=== PATIENT | male | born 1970 | race Two or more races ===

== ENCOUNTER 2024-08-16 07:58 | Outpatient (AMB) | payer OTHER, SELFPAY ==
--- NOTE | 2024-08-16 08:01 | MHC.OFFVIS ---
Vital Signs 08/16/24 08:04 Height 5 ft 5 in Weight 182 lb BMI 30.3 BP 88/70 L Blood Pressure Location Rt brachial Position Sitting Intake Visit Reasons: ENP-Paresthesias Intake Note: Patient presents for parasthesias Allergies No Known Allergies Allergy (Verified 08/16/24 08:04) Medication List - Last Reconciled 08/16/24 by Ariadna Garcia MD albuterol sulfate 90 mcg/actuation 1 inh inhalation QID amiodarone 200 mg PO DAILY amlodipine (Norvasc) 5 mg PO DAILY aspirin 81 mg PO DAILY atorvastatin 80 mg PO DAILY atorvastatin 80 mg PO DAILY budesonide-formoterol 80-4.5 mcg/actuation (Symbicort) 1 inh inhalation BID famotidine 20 mg PO DAILY gabapentin 100 mg PO BEDTIME isosorbide mononitrate ER 60 mg PO DAILY lamivudine mg PO loperamide (Imodium A-D) 2 mg PO Q6H PRN maraviroc (Selzentry) 150 mg PO BID metoprolol succinate ER 50 mg PO DAILY midodrine 5 mg PO TID nifedipine ER 30 mg PO DAILY ondansetron HCl 4 mg PO Q8H pantoprazole 40 mg PO DAILY temazepam (Restoril) 15 mg PO BEDTIME tenofovir disoproxil fumarate 300 mg PO DAILY tenofovir disoproxil fumarate (Viread) 300 mg PO DAILY trazodone 100 mg PO BEDTIME valsartan 40 mg PO BID [wrist splints As directed] zolpidem (Ambien) 5 mg PO BEDTIME HPI Comments Details: 54y/o male comes for evaluation of paresthesias in his hands and legs- for about 1 year.He describes the sensation as discomfort , tingling , numbness and weakness in his hands . He feels it has improved since then and feels it at night only .He denies neck pain. He also has leg pain that is worse at night - he takes motrin or tylenol. He denies any numbness or tingling. He has occasional back pain . He has some leg weakness, no gait issues. No recent falls. He was diagnosed with Lung Ca 3 -4 years ago and treated with Keytruda. 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 COPD (chronic obstructive pulmonary disease) CAD (coronary artery disease) Chest pain Unstable angina Anemia Endocarditis HIV (human immunodeficiency virus infection) CKD (chronic kidney disease) Lung cancer HTN (hypertension) Surgical History (Updated 08/16/24 @ 08:45 by ABIMBOLA Leary) Postsurgical aortocoronary bypass status History of lung biopsy Hx of cholecystectomy Hx of colonoscopy S/P cardiac cath H/O heart surgery Family History (Updated 08/16/24 @ 08:44 by ABIMBOLA Leary) Mother Cancer Diabetes Father Heart disease Social History (Updated 08/16/24 @ 08:07 by ABIMBOLA Leary) Alcohol intake: never Patient Tobacco Use Status: Never used Tobacco Physical Exam Vital Signs: Last Vital Signs BP 88/70 L 08/16/24 08:04 BMI result Body Mass Index 30.3 Const General: cooperative, healthy appearing, comfortable and no acute distress Nutritional Appearance: average body habitus Orientation/consciousness: patient oriented x3 HEENT Head: Yes normal to inspection Eyes Pupils: Equal, round and reactive pupils present Neuro General: patient oriented x3, gait normal, tone normal, moves all extremities and no focal motor deficits Cranial nerves: Yes Facial sensation intact/muscles of mastication intact, Yes Equal, round and reactive pupils present, Yes Bilaterally intact EOM present, Yes Nystagmus not present, Yes Normal facial strength present, Yes Midline tongue present, Yes Symmetric palate elevation present and Yes Ability to bilaterally elevate shoulders present Cognition (Neuro): normal cognition Gait exam (Neuro): Normal gait present Motor exam (neuro): 5/5 motor strength present throughout and Normal motor muscle tone present throughout Deep tendon reflexes (DTR's): Right triceps reflex intensity grade: 1+, Left triceps reflex intensity grade: 1+, Rt Biceps (C5, C6): 1+, Left biceps reflex intensity grade: 1+, Right patellar reflex intensity grade: 1+ and Left patellar reflex intensity grade: 1+ Assessment & Plan Assessment & Plan (1) Hand paresthesia: Comment: Stu hand with numbness , weakness ? carpal tunnel syndrome Code(s): R20.2 - Paresthesia of skin Category: Medical (2) Leg pain, bilateral: Comment: ? 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
[2024-08-16 08:04] VITALS: BP 88/70; BMI 30.3
== END 2024-08-16 08:39 | disposition home or self-care (01) ==
PROVIDERS: PCP Internal Medicine; Visit Provider Psychiatry & Neurology Neurology
DX: R20.2 Paresthesia of skin (principal); M79.604 Pain in right leg; M79.605 Pain in left leg
CPT/HCPCS: 99204; G2211

== ENCOUNTER → 2024-08-16 07:58 | Outpatient (BNVA) | payer OTHER, SELFPAY | PROVIDERS: PCP Internal Medicine; Visit Provider Psychiatry & Neurology Neurology | DX: N20.0 Calculus of kidney (principal); M79.604 Pain in right leg | CPT/HCPCS: 99202 ==

== ENCOUNTER 2024-09-15 13:20 | Outpatient (REF) | payer OTHER, SELFPAY ==
--- NOTE | 2024-09-15 13:30 | EMG_ITS ---
Chief complaint: Bilateral hand numbness Reason for referral: Evaluate for Carpal Tunnel Syndrome Referred by: Dr. Garcia Procedure done: Left upper extremity NCS Testing on right side deferred until clearance by security investigator. Precautions and/or limitations: Patient has an AV fistula on the right. Patient is afraid of needles. The limb temperature was monitored continuously and remained between 32-36 degrees C during the performance of the NCS. Nerve Conduction Studies Anti Sensory Summary Table ?Stim Site NR Onset (ms) Norm Onset (ms) Peak (ms) Norm Peak (ms) O-P Amp (?V) Norm O-P Amp Site1 Site2 Delta-0 (ms) Dist (cm) Elia (m/s) Norm Elia (m/s) Left Median Anti Sensory (2nd Digit) Wrist ? 3.9 5.4 <3.6 6.1 >10 Wrist 2nd Digit 3.9 14.0 36 Left Radial Anti Sensory (Thumb) Forearm ? 1.7 2.7 <3.1 33.7 Forearm Thumb 1.7 0.0 Left Ulnar Anti Sensory (5th Digit) Wrist ? 2.9 3.8 <3.7 23.2 >15.0 Wrist 5th Digit 2.9 14.0 48 Motor Summary Table ?Stim Site NR Onset (ms) Norm Onset (ms) O-P Amp (mV) Norm O-P Amp iAmp (mV) Amp (1st) (%) Site1 Site2 Delta-0 (ms) Dist (cm) Elia (m/s) Norm Elia (m/s) Left Median Motor (Abd Poll Brev) Wrist ? 5.5 <3.9 7.1 >4.5 9.5 100.0 Elbow Wrist 5.9 22.0 37 >45 Elbow ? 11.4 8.3 10.6 116.9 Left Ulnar Motor (Abd Dig Minimi) Wrist ? 2.9 <3.0 5.7 >5 7.8 100.0 B Elbow Wrist 4.7 21.0 45 >45 B Elbow ? 7.6 5.3 6.6 93.0 A Elbow B Elbow 1.8 10.0 56 >45 A Elbow ? 9.4 5.1 6.3 89.5 FINDINGS: Left median motor nerve showed prolonged distal latency, normal amplitude and normal conduction velocity. Left median sensory nerve showed prolonged peak latency and small amplitude All other nerves tested were within normal. Patient afraid of needles, needle EMG deferred. IMPRESSION: 1. This is an abnormal study. 2. There is electrodiagnostic evidence for left moderate-severe median neuropathy at the wrist, consistent with carpal tunnel syndrome. 3. There is no electrodiagnostic evidence for ulnar neuropathy. Thank you for your kind referral. Nahed Messina MD, KARLEY Board Certified, [place] Board of [employer] Medicine and Rehabilitation (ABPMR) Board Certified, [place] Board of Electrodiagnostic Medicine (ABEM) [facility]
== END 2024-09-15 13:21 | disposition home or self-care (01) ==
LOC: HO.NEURO 13:20
PROVIDERS: Visit Provider Psychiatry & Neurology Neurology
DX: R20.2 Paresthesia of skin (principal); R53.1 Weakness
CPT/HCPCS: 95909

== ENCOUNTER → 2024-09-15 13:30 | Outpatient (BNV) | payer OTHER, SELFPAY | PROVIDERS: Visit Provider Physical Medicine & Rehabilitation | DX: G56.02 Carpal tunnel syndrome, left upper limb (principal) | CPT/HCPCS: 95909 ==

== ENCOUNTER 2024-11-22 09:57 | Outpatient (AMB) | payer OTHER, SELFPAY ==
[2024-11-22 09:59] VITALS: BP 102/66; PULSE 85; O2SAT 97; BMI 31.9
--- NOTE | 2024-11-22 09:59 | MHC.OFFVIS ---
Vital Signs 11/22/24 09:59 Height 5 ft 5 in Weight 191 lb 8 oz BMI 31.9 BP 102/66 Blood Pressure Location Lt brachial Position Sitting Pulse 85 Pulse Source Pulse Oximeter Pulse Oximetry (%) 97 Oxygen Delivery Method Room Air Intake Visit Reasons: Follow up Paresthesias Intake Note: Patient presents for follow up EMG done on 09/15/24 nerve conduction done 09/15/24 Allergies No Known Allergies Allergy (Verified 11/22/24 10:02) HPI Comments Details: 54y/o male comes for f/u of parasthesias in his hands and legs- for about 1 year.EMG left ue was c/w severe carpal tunnel . The right EMG was not done as he has a dialysis fistula A certified mechanical designer helped with todays visit History from iniial visit-He describes the sensation as discomfort , tingling , numbness and weakness in his hands . He feels it has improved since then and feels it at night only .He denies neck pain. He also has leg pain that is worse at night - he takes motrin or tylenol. He denies any numbness or tingling. He has occasional back pain . He has some leg weakness, no gait issues. No recent falls. He was diagnosed with Lung Ca 3 -4 years ago and treated with Keytruda. [facility] Medical History Carpal tunnel syndrome of left wrist Leg pain, bilateral Hand paresthesia Abscess of aortic root AV fistula Dyslipidemia Afib Cardiomyopathy Anxiety Umbilical hernia Nonsquamous nonsmall cell neoplasm of left lung COPD (chronic obstructive pulmonary disease) CAD (coronary artery disease) Chest pain Unstable angina Anemia Endocarditis HIV (human immunodeficiency virus infection) CKD (chronic kidney disease) Lung cancer HTN (hypertension) Surgical History Postsurgical aortocoronary bypass status History of lung biopsy Hx of cholecystectomy Hx of colonoscopy S/P cardiac cath H/O heart surgery Family History Mother Cancer Diabetes Father Heart disease Social History Alcohol intake: never Patient Tobacco Use Status: Never used Tobacco Physical Exam Vital Signs: Last Vital Signs Pulse 85 11/22/24 09:59 BP 102/66 11/22/24 09:59 Pulse Ox 97 11/22/24 09:59 Oxygen Delivery Method Room Air 11/22/24 09:59 BMI result Body Mass Index 31.9 Const General: cooperative, healthy appearing, comfortable and no acute distress Nutritional Appearance: average body habitus Orientation/consciousness: patient oriented x3 HEENT Head: Yes normal to inspection Neuro General: patient oriented x3, gait normal, tone normal, moves all extremities and no focal motor deficits Cognition (Neuro): normal cognition Gait exam (Neuro): Normal gait present Motor exam (neuro): 5/5 motor strength present throughout and Normal motor muscle tone present throughout Assessment & Plan Assessment & Plan (1) Carpal tunnel syndrome of left wrist: Code(s): G56.02 - Carpal tunnel syndrome, left upper limb Category: Medical (2) Leg pain, bilateral: Comment: ? 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
--- OUTSIDE RECORDS SUMMARY | 2024-11-22 11:51 | XMS_ITS | Encounter Summary ---
Author Organization [facility] Address [address] [place] [address] Care Team Providers Care Feather Trimmer Name Role Phone [place] Colasacco, Deidra DO Primary Care Pro vider Unavailable [place] Colasacco, Deidra DO Primary Care Pro vider Unavailable [place] Colasacco, Deidra DO Unavailable Unavailable Hill Felton MD Primary Care Provider [phone] [place] Colasacco, Deidra DO Primary Care Pro vider Unavailable Paulo Meraz MD Unavailable Danish Gore DO Primary Care Provider Sherry vailable Vita Hale PA-C Primary Care Provider U Rasta Burciaga MD Primary Care Provider [phone] Michelle Calderón MD Primary Care Provider Unavailable Rasta Syed MD Primary Care Provider [phone] Jose Marcelo Unavailable Bernardo Dorantes MD Primary Care Provider Kelin Reeves NP Unavailable [phone] Encounter Details Date Type Department Care Team Description 06/11/2015 Release of Information Medical Records [address] [place] [id number] Abstract, Provider Social History Tobacco Use Types Packs/Day Years Used Date Smoking Tobacco: Every Day Cigarettes 1 Alcohol Use Standard Drinks/Week Comments Not Asked 0 (1 standard drink = 0.6 oz pur e alcohol) Sex Assigned at Date Recorded Not on file Job Start Date Occupation Industry Not on file Not on file Not on file documented as of this encounter Plan of Treatment Not on file documented as of this encounter Visit Diagnoses Not on filedocumented in this encounter Care Teams Feather Trimmer Relationship Specialty Start Date End Date Deidra Sneed DO PCP - General Internal Medicine 06/07/15 12/18/15 Deidra Sneed DO PCP - General 12/19/15 02/02/21 Hill Felton MD [address] [place] [address] PCP - General Internal Medicine 02/03/21 02/04/21 Deidra Sneed DO PCP - General Internal Medicine 02/05/21 04/22/21 Danish Gore DO [address] [place], [place] PCP - General Internal Medicine 04/23/21 06/12/21 Vita Hale PA-C [address] [place], [place] PCP - General Internal Medicine 06/13/21 10/20/21 Rasta Syed MD [address] [place] [id number] PCP - General Internal Medicine 10/21/21 07/15/22 Michelle Calderón MD [address] [place] [address] PCP - General Internal Medicine 07/16/22 07/19/22 Rasta Syed MD [address] [place] [address] PCP - General Internal Medicine 07/20/22 08/01/23 Bernardo Dorantes MD [address] [place] [address] PCP - General Internal Medicine 08/02/23 Deidra Sneed, DO Internal Medicine 12/19/15 07/19/22 Paulo Meraz MD [address] [place], [place] Contracting Engineer Cardiovascular Disease 02/17/21 Jose Marcelo PA [address] [place] [address] Specialist Cardiology 09/08/22 Kelin Reeves NP [address] [place] [address] Cardiology 08/18/23 documented as of this encounter
--- OUTSIDE RECORDS SUMMARY | 2024-11-22 11:51 | XMS_ITS | Encounter Summary ---
Author Organization [facility] Address [address] [place] [address] Care Team Providers Care Superintendent [employer] Name Role Phone Paulo Meraz MD Unavailable Rasta Syed MD Primary Care Provider [phone] Jose Marcelo Unavailable Bernardo Dorantes MD Primary Care Provider Kelin Reeves NP Unavailable [phone] Reason for Visit * Reason Onset Date Comments DME Request 02/11/2023 Encounter Details Date Type Department Care Team Description 02/11/2023 Telephone Pulmonology - Cornelia [address] [facility] [address] [place] [address] Wayne Winters MD [address] [place] [address] DME Request Social History Tobacco Use Types Packs/Day Years Used Date Smoking Tobacco: Former Cigarettes 1 8 0 09/27/1987 - 12/2019 Smokeless Tobacco: Never Alcohol Use Standard Drinks/Week Comments No 0 (1 standard drink = 0.6 oz pur e alcohol) Sex Assigned at Date Recorded Not on file Job Start Date Occupation Industry Not on file Not on file Not on file COVID-19 Exposure Response Date Recorded In the last 10 days, have yo u been in contact with someone who was confirmed or suspected to have Coronavirus/COVID-19? No / Unsure 02/01/2023 10:42 AM EDT documented as of this encounter Miscellaneous Notes * Telephone Encounter - Carol Aquino M.A. - 03/22/2023 3:32 PM EDT Faxed required documents for DME to jody. * Telephone Encounter - Jumana Dianenina Puri - 02/11/2023 1:59 PM EDT Oxygen order faxed to jody documented in this encounter Plan of Treatment Not on file documented as of this encounter Visit Diagnoses Not on filedocumented in this encounter Care Teams Superintendent [employer] Relationship Specialty Start Date End Date Rasta Syed MD [address] [place] [id number] PCP - General Internal Medicine 07/20/22 08/01/23 Bernardo Dorantes MD [address] [place] [address] PCP - General Internal Medicine 08/02/23 Paulo Meraz MD Pega Developer Cardiovascular Disease 02/17/21 Jose Marcelo PA [address] [place] [address] Specialist Cardiology 09/08/22 Kelin Reeves NP [address] [place] [address] Cardiology 08/18/23 documented as of this encounter
--- OUTSIDE RECORDS SUMMARY | 2024-11-22 11:51 | XMS_ITS | Encounter Summary ---
Author Organization [facility] Address [address] [place] [address] Care Team Providers Care Bpm Analyst Name Role Phone Paulo Meraz MD Unavailable Rasta Syed MD Primary Care Provider [phone] Jose Marcelo Unavailable Bernardo Dorantes MD Primary Care Provider Kelin Reeves NP Unavailable [phone] Encounter Details Date Type Department Care Team Description 07/14/2023 Rehab Rn Report Medical Records [address] [place] [address] Abstract, Provider Social History Tobacco Use Types [...] on filedocumented in this encounter Care Teams Bpm Analyst Relationship Specialty Start Date End Date Rasta Syed MD [address] [place] [address] [id number] PCP - General Internal Medicine 07/20/22 08/01/23 Bernardo Dorantes MD [address] [place] [address] [id number] PCP - General Internal Medicine 08/02/23 Paulo Meraz MD Farm Hand Cardiovascular Disease 02/17/21 Jose Marcelo PA [address] [place] [address] Specialist Cardiology 09/08/22 Kelin Reeves NP [address] [place] [address] Cardiology 08/18/23 documented as of this encounter
--- OUTSIDE RECORDS SUMMARY | 2024-11-22 11:51 | XMS_ITS | Encounter Summary ---
Author Organization [facility] Address [address] [place] [address] Care Team Providers Care Bee Rancher Name Role Phone Deidra Sneed DO Primary Care Pro vider Unavailable Deidra Sneed DO Unavailable Unavailable Hill Felton MD Primary Care Provider [phone] Deidra Sneed DO Primary Care Pro vider Unavailable Paulo Meraz MD Unavailable Danish Gore DO Primary Care Provider Sherry vailable Vita Hale PA-C Primary Care Provider U Rasta Burciaga MD Primary Care Provider [phone] Michelle Calderón MD Primary Care Provider Unavailable Rasta Syed MD Primary Care Provider [phone] Jose Marcelo Unavailable Bernardo Dorantes MD Primary Care Provider Kelin Reeves NP Unavailable [phone] Encounter Details Date Type Department Care Team Description 11/08/2019 SCAN Medical Records [address] [place] [address] Abstract, Provider Social History Tobacco Use Types Packs/Day Years Used Date Smoking Tobacco: Every Day Cigarettes 1 8 Started: 09/27/1987 Smokeless Tobacco: Former Quit: 07/03/2016 Alcohol Use Standard Drinks/Week Comments No 0 (1 standard drink = 0.6 oz pur e alcohol) Sex Assigned at Date Recorded Not on file Job Start Date Occupation Industry Not on file Not on file Not on file documented as of this encounter Plan of Treatment Not on file documented as of this encounter Procedures Procedure Name Priority Date/Time Associated Diagnosis Comments OUTSIDE EKG Routine 11/08/2019 documented in this encounter Results * OUTSIDE EKG (11/08/2019) Provider Default CARDIOLOGY documented in this encounter Visit Diagnoses Not on filedocumented in this encounter Care Teams Bee Rancher Relationship Specialty Start Date End Date Deidra Sneed DO PCP - General 12/19/15 02/02/21 Hill Felton MD [address] [place], [place] PCP - General Internal Medicine 02/03/21 02/04/21 Deidra Sneed DO PCP - General Internal Medicine 02/05/21 04/22/21 Danish Gore DO [address] [place], [place] PCP - General Internal Medicine 04/23/21 06/12/21 Vita Hale PA-C [address] [place], [place] PCP - General Internal Medicine 06/13/21 10/20/21 Rasta Syed MD [address] [place] [address] PCP - General Internal Medicine 10/21/21 07/15/22 Michelle Calderón MD [address] [place] [address] PCP - General Internal Medicine 07/16/22 07/19/22 Rasta Syed MD [address] [place] [address] PCP - General Internal Medicine 07/20/22 08/01/23 Bernardo Dorantes MD [address] [place] [address] PCP - General Internal Medicine 08/02/23 Deidra Sneed DO Internal Medicine 12/19/15 07/19/22 Paulo Meraz MD [address] [place], [place] Credit And Collection Manager Cardiovascular Disease 02/17/21 Jose Marcelo PA [address] [place], [place] [phone] Specialist Cardiology 09/08/22 Kelin Reeves NP [address] [place] [address] Cardiology 08/18/23 documented as of this encounter
--- OUTSIDE RECORDS SUMMARY | 2024-11-22 11:51 | XMS_ITS | Encounter Summary ---
Author Organization [facility] Address [address] [address] Phone Care Team Providers Care Gas Analyst Name Role Phone Bernardo Dorantes Primary Care Provider [phone] Encounter Details Date Type Department Care Team ([facility] st Contact Info) Description 11/09/2024 Treatment [facility] [address] [address] Anne No MD [address] [address] Social History Tobacco Use Types Packs/Day Years Used Date Smoking Tobacco: Former Cigarettes Q uit: 2019 Smokeless Tobacco: Never Alcohol Use Standard Drinks/Week Comments Never 0 (1 standard drink = 0.6 oz pure alcohol) Alcoholic Drinks/day: Occasional social drink Sex and Gender Information Value Date Recorded Sex Assigned at Not on file Legal Sex Male 4:41 PM EST Gender Identity Not on file Sexual Orientation Not on file documented as of this encounter Miscellaneous Notes * Dialysis Note - Anne No MD - 11/09/2024 12:00 AM EST Patient: Hoang Larson : 1970 Note Type: Dialysis Rounds-Basic Telehealth Service Date: 11/09/2024 Telehealth encounter using audiovisual technology, performed according to state requirements. Appropriate patient consent obtained. This patient was personally seen for a basic visit as part of routine monthly dialysis care for end stage renal disease. Attending Route Salesman And Driver: ANNE NO MD Dialysis Location: [facility] Schedule: Shift: 1 ADEQUACY ASSESSMENT Kt/V, Natural Log 1.33 (11/02/24) 1.24 (10/05/24) 1.45 (08/31/24) UREA REDUCTION RATIO (%) 69 (11/02/24) 66 (10/05/24) 71 (08/31/24) BUN 80 (11/02/24) 77 (10/05/24) 55 (08/31/24) BUN Post Dialysis 25 (11/02/24) 26 (10/05/24) 16 (08/31/24) Creatinine 9.20 (11/02/24) 10.72 (10/05/24) 8.72 (08/31/24) Bicarbonate (CO2) 23 (11/02/24) 20 (10/05/24) 22 (08/31/24) Sodium 140 (11/02/24) 140 (10/05/24) 137 (08/31/24) ANEMIA ASSESSMENT Hgb 9.3 (11/02/24) 9.6 (10/26/24) 9.3 (10/19/24) Iron Saturation (TSat) 22 (11/02/24) 21 (10/05/24) 28 (08/31/24) Ferritin 636 (10/05/24) Iron 54 (11/02/24) 44 (10/05/24) 58 (08/31/24) TIBC 249 (11/02/24) 213 (10/05/24) 207 (08/31/24) MCV 98.3 (11/02/24) 103.2 (08/31/24) 102.2 (08/03/24) Platelets 214 (11/02/24) 215 (08/31/24) 230 (08/03/24) BMM ASSESSMENT Calcium, Adjusted Total 8.9 11/02/24 9.5 10/05/24 8.4 08/31/24 Calcium 8.9 11/02/24 9.5 10/05/24 8.4 08/31/24 Phosphorus, Serum 7.1 11/02/24 6.1 10/26/24 8.4 10/05/24 Ca*PO4 63.2 11/02/24 79.8 10/05/24 46.2 08/31/24 PTH, Intact 792 11/02/24 886 10/05/24 672 08/31/24 Vitamin D, 25-Hydroxy 27 10/05/24 Magnesium 2.2 11/02/24 2.0 10/05/24 2.0 08/31/24 Alkaline Phosphatase 173 11/02/24 150 10/05/24 231 08/31/24 Aluminum 4 10/05/24 NUTRITION ASSESSMENT Albumin 4.1 11/02/24 4.1 10/05/24 4.1 08/31/24 Potassium 5.6 11/02/24 5.8 10/05/24 5.0 08/31/24 ADDITIONAL LABS White Blood Cells 6.1 (11/02/24) 5.8 (08/31/24) 6.6 (08/03/24) Cholesterol 100 (10/05/24) HDL 22 (10/05/24) LDL-Calc 38 (10/05/24) Triglycerides 202 (10/05/24) Hep B Surface Antibody 9 (10/05/24) 11 (09/14/24) Uric Acid 6.9 (10/05/24) ADDITIONAL COMMENT COMMENTS: 10/31/24 no new issues 11/09/24 c/o psoriasis 05/30/24 stable 06/06/24 no new issues 06/20/24 doing well w no complaints 07/04/24 stable 07/18/24 no new issues 08/01/24 doing ok 08/08/24 stable 08/21/24 doing ok 08/17/24 same issues 09/21/24 stable 09/25/24 doing ok 10/05/24 stable 10/10/24 stable 10/17/24 no new issues Signed by: ANNE NO MD on 11/09/2024 at 08:36:39 AM documented in this encounter Plan of Treatment Upcoming Encounters Date Type Department Care Team (Late st Contact Info) Description 12/04/2024 3:30 PM EDT Scheduled Only [facility] - [facility] [address] [place] [address] documented as of this encounter Visit Diagnoses Not on filedocumented in this encounter Care Teams Gas Analyst Relationship Specialty Start Date End Date Bernardo Dorantes [address] [place] [address] PCP - General 11/06/24 documented as of this encounter
--- OUTSIDE RECORDS SUMMARY | 2024-11-22 11:51 | XMS_ITS | Encounter Summary ---
Author Organization [facility] Address [address] [place] [address] Care Team Providers Care Executive Chef Name Role Phone Paulo Meraz MD Unavailable Rasta Syed MD Primary Care Provider [phone] Jose Marcelo Unavailable Bernardo Dorantes MD Primary Care Provider Kelin Reeves NP Unavailable [phone] Reason for Visit * Reason Onset Date Comments VNA Call 06/15/2023 Encounter Details Date Type Department Care Team Description 06/15/2023 Telephone Adult Medicine [address] [id number] Yakov Watts, PROMOTIONS TEAM LEADER [address] [place], [place] [phone] VNA Call Social History Tobacco Use Types Packs/Day Years [...] suspected to have Coronavirus/COVID-19? No / Unsure 05/27/2023 12:26 PM EDT documented as of this encounter Miscellaneous Notes * Telephone Encounter - Bob Beckford L.P.N. - 06/15/2023 12:45 PM EDT Spoke with Mona at [facility] Told her Bettina Watts ENTRANCE GUARD is not a PCP She is supervised by Dr. Syed he refuses to sign patient needs an appt withd Dr. Syed For a hospital follow up she should call Cardi Is was last seen at [facility] on 05/27 * Telephone Encounter - Allison Rao - 06/15/2023 12:33 PM EDT VNA CALL Which [facility] office is calling? [facility] Full name of caller: Mona The caller is Dress Designer Is the caller at the patients home?: NO Reason for call: Mona is aware that Dr Syed wouldnot sign home health orders, but patient stated thatthey saw a Nurse Practitioner in November, (Yakov Watts NP) and Mona is wondering if she would be willing to sign home health orders. Does caller need an urgent call back? YES Was CONTACT Telephone # obtained above?: NO Fax #: documented in this encounter Plan of Treatment Not on file documented as of this encounter Visit Diagnoses Not on filedocumented in this encounter Care Teams Executive Chef Relationship Specialty Start Date End Date Rasta Syed MD [address] [place] [address] PCP - General Internal Medicine 07/20/22 08/01/23 Bernardo Dorantes MD [address] [place] [address] PCP - General Internal Medicine 08/02/23 Paulo Meraz MD Sat Tutor Cardiovascular Disease 02/17/21 Jose Marcelo PA [address] [place] [address] Specialist Cardiology 09/08/22 Kelin Reeves NP [address] [place] [address] Cardiology 08/18/23 documented as of this encounter
--- OUTSIDE RECORDS SUMMARY | 2024-11-22 11:51 | XMS_ITS | Encounter Summary ---
Author Organization [facility] Address [address] [address] Phone Care Team Providers Care Official Court Reporter Name Role Phone Bernardo Dorantes Primary Care Provider [phone] Encounter Details Date Type Department Care Team ([facility] st Contact Info) Description 10/31/2024 Treatment [facility] [address] [address] Anne No MD [address] [address] Social History Tobacco Use Types [...] Dialysis Note - Anne No MD - 10/31/2024 12:00 AM EST Patient: Hoang Larson : 1970 Note Type: Dialysis Rounds-Comp Service Date: 10/31/2024 This patient was personally seen for a complete visit as part of routine monthly dialysis care for end stage renal disease. Attending Dairy Associate: ANNE NO MD Dialysis Location: [facility] Schedule: Shift: 1 ADEQUACY ASSESSMENT Kt/V, [...] ADDITIONAL COMMENT COMMENTS: 10/31/24 no new issues 05/30/24 stable 06/06/24 no new issues 06/20/24 doing well w no complaints 07/04/24 stable 07/18/24 no new issues 08/01/24 doing ok 08/08/24 stable 08/21/24 doing ok 08/17/24 same issues 09/21/24 stable 09/25/24 doing ok 10/05/24 stable 10/10/24 stable 10/17/24 no new issues Signed by: ANNE NO MD on 11/09/2024 at 07:24:32 AM documented in this encounter Plan of Treatment Upcoming Encounters Date Type Department Care Team (Late st Contact Info) Description 12/04/2024 3:30 PM EDT Scheduled Only [facility] - [facility] Center [address] [place] [address] [place] [address] documented as of this encounter Visit Diagnoses Not on filedocumented in this encounter Care Teams Official Court Reporter Relationship Specialty Start Date End Date Bernardo Dorantes [address] [place] [address] PCP - General 11/06/24 documented as of this encounter
--- OUTSIDE RECORDS SUMMARY | 2024-11-22 11:51 | XMS_ITS | Encounter Summary ---
Author Organization [facility] Address [address] [address] Phone Care Team Providers Care Cyber Security Administrator Name Role Phone Bernardo Dorantes Primary Care Provider [phone] Encounter Details Date Type Department Care Team ([facility] st Contact Info) Description 11/21/2024 Treatment [facility] [address] [address] Anne No MD [address] [address] Social History Tobacco Use Types [...] Dialysis Note - Anne No MD - 11/21/2024 12:00 AM EST Patient: Hoang Larson : 1970 Note Type: Dialysis Rounds-Basic Telehealth Service Date: 11/21/2024 Telehealth encounter using audiovisual technology, performed according to state requirements. Appropriate patient consent obtained. This patient was personally seen for a basic visit as part of routine monthly dialysis care for end stage renal disease. Attending Geodetic Computator: ANNE NO MD Dialysis Location: [facility] Schedule: Shift: 1 ADEQUACY ASSESSMENT Kt/V, [...] 140 (10/05/24) 137 (08/31/24) ANEMIA ASSESSMENT Hgb 10.3 (11/16/24) 9.6 (11/09/24) 9.3 (11/02/24) Iron Saturation (TSat) 22 (11/02/24) 21 (10/05/24) [...] 10/31/24 no new issues 11/09/24 c/o psoriasis 11/14/24 stable 11/21/24 seen by derm and look at starting ozempla 05/30/24 stable 06/06/24 no new issues 06/20/24 doing well w no complaints 07/04/24 stable 07/18/24 no new issues 08/01/24 doing ok 08/08/24 stable 08/21/24 doing ok 08/17/24 same issues 09/21/24 stable 09/25/24 doing ok 10/05/24 stable 10/10/24 stable 10/17/24 no new issues Signed by: ANNE NO MD on 11/22/2024 at 01:15:27 AM documented in this encounter Plan of Treatment Upcoming Encounters Date Type Department Care Team (Late st Contact Info) Description 12/04/2024 3:30 PM EDT Scheduled Only [facility] - V[facility] Access Center [address] [place] [address] documented as of this encounter Visit Diagnoses Not on filedocumented in this encounter Care Teams Cyber Security Administrator Relationship Specialty Start Date End Date Bernardo Dorantes [address] [place] [address] PCP - General 11/06/24 documented as of this encounter
--- OUTSIDE RECORDS SUMMARY | 2024-11-22 11:51 | XMS_ITS | Encounter Summary ---
Author Organization [facility] Address [address] [place] [address] Care Team Providers Care Continuous Process Machine Operator Name Role Phone Paulo Meraz MD Unavailable Rasta Syed MD Primary Care Provider [phone] Jose Marcelo Unavailable Bernardo Dorantes MD Primary Care Provider Kelin Reeves NP Unavailable [phone] Encounter Details Date Type Department Care Team Description 05/29/2023 Hospital Medical Records [address] [place] [address] López Murrieta MD Social History Tobacco Use Types Packs/Day Years Used Date Smoking Tobacco: Former Cigarettes 1 35 0 09/27/1987 - 12/2019 Smokeless Tobacco: Never Alcohol Use Standard Drinks/Week Comments No 0 (1 standard drink = 0.6 oz pur e alcohol) Sex Assigned at Date Recorded Not on file Job Start Date Occupation Industry Not on file Not on file Not on file COVID-19 Exposure Response Date Recorded In the last 10 days, have dawit u been in contact with someone who was confirmed or suspected to have Coronavirus/COVID-19? No / Unsure 05/27/2023 12:26 PM EDT documented as of this encounter Plan of Treatment Not on file documented as of this encounter Visit Diagnoses Not on filedocumented in this encounter Care Teams Continuous Process Machine Operator Relationship Specialty Start Date End Date Rasta Syed MD [address] [place] [address] PCP - General Internal Medicine 07/20/22 08/01/23 Bernardo Dorantes MD [address] [place] [address] PCP - General Internal Medicine 08/02/23 Paulo Meraz MD Staff Auditor Cardiovascular Disease 02/17/21 Jose Marcelo PA [address] [place] [address] [phone] Specialist Cardiology 09/08/22 Kelin Reeves NP [address] [place] [address] Cardiology 08/18/23 documented as of this encounter
--- OUTSIDE RECORDS SUMMARY | 2024-11-22 11:51 | XMS_ITS | Encounter Summary ---
Author Organization [facility] Address [address] [place] [address] Care Team Providers Care Dean For Student Affairs Name Role Phone Paulo Meraz MD Unavailable Rasta Syed MD Primary Care Provider [phone] Jose Marcelo Unavailable Bernardo Dorantes MD Primary Care Provider Kelin Reeves NP Unavailable [phone] Encounter Details Date Type Department Care Team Description 06/29/2023 Hospital Medical Records [address] [place] [address] Eugene Reilly MD [address] [place] [address] [facility] Dianna [place], [place] [phone] Social History Tobacco Use Types Packs/Day Years [...] on filedocumented in this encounter Care Teams Dean For Student Affairs Relationship Specialty Start Date End Date Rasta Syed MD [address] [place] [address] PCP - General Internal Medicine 07/20/22 08/01/23 Bernardo Dorantes MD [address] [place] [address] PCP - General Internal Medicine 08/02/23 Paulo Meraz MD Transport Pilot Cardiovascular Disease 02/17/21 Jose Marcelo PA [address] [place], [place] [phone] Specialist Cardiology 09/08/22 Kelin Reeves NP [address] [place] [phone] Cardiology 08/18/23 documented as of this encounter
--- OUTSIDE RECORDS SUMMARY | 2024-11-22 11:51 | XMS_ITS | Encounter Summary ---
Author Organization [facility] Address [address] [place] [address] Care Team Providers Care Child Development Specialist Name Role Phone Paulo Meraz MD Unavailable Rasta Syed MD Primary Care Provider [phone] Jose Marcelo Unavailable Bernardo Dorantes MD Primary Care Provider Kelin Reeves NP Unavailable [phone] Encounter Details Date Type Department Care Team Description 02/17/2023 Orders Only Pulmonology - [place] [address] [facility] [address] [place] [address] Wayne Winters MD [address] [place] [phone] Chronic obstructive pulmonary disease, unspecified COPD type (HCC); ESRD (end stage renal disease) ([facility]) Social History Tobacco Use Types Packs/Day Years [...] AM EDT documented as of this encounter Plan of Treatment Not on file documented as of this encounter Procedures Procedure Name Priority Date/Time Associated Diagnosis Comments [place] NONINVASIVE EAR/PULSE OXIMETRY OVERNIGHT MONITOR Routine 02/01/2023 Chronic obstructive pulmonary disease, unspecified COPD type (HCC) ESRD (end stage renal disease) (HCC) documented in this encounter Results * OXIMETRY,OVERNITE (02/01/2023) Wayne Winters MD PERFORMABLES documented in this encounter Visit Diagnoses Diagnosis Chronic obstructive pulmonary disease, unspecified COPD type (HCC) ESRD (end stage renal disease) (HCC) End stage renal disease documented in this encounter Care Teams Child Development Specialist Relationship Specialty Start Date End Date Rasta Syed MD [address] [place] [address] PCP - General Internal Medicine 07/20/22 08/01/23 Bernardo Dorantes MD [address] [place] [address] [phone] PCP - General Internal Medicine 08/02/23 Paulo Meraz MD Label Machine Operator Cardiovascular Disease 02/17/21 Jose Marcelo PA [address] [place] [phone] Specialist Cardiology 09/08/22 Kelin Reeves NP [address] [place] [address] Cardiology 08/18/23 documented as of this encounter
--- OUTSIDE RECORDS SUMMARY | 2024-11-22 11:51 | XMS_ITS | Encounter Summary ---
Author Organization [facility] Address [address] [place] [address] Care Team Providers Care Schedule Maker Name Role Phone [place] Colasacco, Deidra DO Primary Care Pro vider Unavailable [place] Colasacco, Deidra DO Primary Care Pro vider Unavailable [place] Colasacco, Deidra DO Unavailable Unavailable Hill Felton MD Primary Care Provider [phone] [place] Colasacco, Deidra DO Primary Care Pro vider Unavailable Paulo Meraz MD Unavailable Danish Gore DO Primary Care Provider Sherry vailable Vita Hale PA-C Primary Care Provider U Rasta Burciaga MD Primary Care Provider [phone] Michelle Calderón MD Primary Care Provider Unavailable Rasta Syed MD Primary Care Provider [phone] oJse Marcelo Unavailable Bernardo Dorantes MD Primary Care Provider Kelin Reeves NP Unavailable [phone] Encounter Details Date Type Department Care Team Description 06/20/2015 Release of Information Medical Records [address] [place] [address] Abstract, Provider Social History Tobacco Use Types [...] on filedocumented in this encounter Care Teams Schedule Maker Relationship Specialty Start Date End Date Deidra Sneed DO PCP - General Internal Medicine 06/07/15 12/18/15 Deidra Sneed DO PCP - General 12/19/15 02/02/21 Hill Felton MD [address] [place] [address] PCP - General Internal Medicine 02/03/21 02/04/21 Deidra Sneed DO PCP - General Internal Medicine 02/05/21 04/22/21 Danish Gore DO [address] [place], [place] PCP - General Internal Medicine 04/23/21 06/12/21 Vita Hale PA-C [address] [place], [place] PCP - General Internal Medicine 06/13/21 10/20/21 Rasta Syed MD [address] [place] [address] PCP - General Internal Medicine 10/21/21 07/15/22 Michelle Calderón MD [address] [place] [address] PCP - General Internal Medicine 07/16/22 07/19/22 Rasta Syed MD [address] [place] [address] PCP - General Internal Medicine 07/20/22 08/01/23 Bernardo Dorantes MD [address] [place] [address] PCP - General Internal Medicine 08/02/23 Deidra Sneed, DO Internal Medicine 12/19/15 07/19/22 Paulo Meraz MD [address] [place], [place] Counter Pocket Trimmer Cardiovascular Disease 02/17/21 Jose Marcelo PA [address] [place] [address] Specialist Cardiology 09/08/22 Kelin Reeves NP [address] [place] [address] Cardiology 08/18/23 documented as of this encounter
--- OUTSIDE RECORDS SUMMARY | 2024-11-22 11:51 | XMS_ITS | Encounter Summary ---
Author Organization [facility] Address [address] [place] [address] Care Team Providers Care Water Project Manager Name Role Phone Paulo Meraz MD Unavailable aRsta Syed MD Primary Care Provider [phone] Jose Marcelo Unavailable Bernardo Dorantes MD Primary Care Provider Kelin Reeves NP Unavailable [phone] Encounter Details Date Type Department Care Team Description 06/29/2023 Hospital Medical Records [address] [place], [place] [phone] [place] [address] Social History Tobacco Use Types Packs/Day Years [...] Name Priority Date/Time Associated Diagnosis Comments OUTSIDE PLAIN FILM Routine 07/09/2023 OUTSIDE EKG Routine 07/06/2023 OUTSIDE ECHO Routine 07/06/2023 OUTSIDE PLAIN FILM Routine 06/29/2023 OUTSIDE LAB Routine 06/29/2023 OUTSIDE LAB Routine 06/29/2023 documented in this encounter Results * OUTSIDE PLAIN FILM (07/09/2023) Provider Abstract RADIOLOGY * OUTSIDE ECHO (07/06/2023) Provider Abstract CARDIOLOGY * OUTSIDE EKG (07/06/2023) Provider Abstract CARDIOLOGY * OUTSIDE PLAIN FILM (06/29/2023) Provider Abstract RADIOLOGY * OUTSIDE LAB (06/29/2023) Provider Abstract LAB * OUTSIDE LAB (06/29/2023) Provider Abstract LAB documented in this encounter Visit Diagnoses Not on filedocumented in this encounter Care Teams Water Project Manager Relationship Specialty Start Date End Date Rasta Syed MD [address] [place] [address] PCP - General Internal Medicine 07/20/22 08/01/23 Bernardo Dorantes MD [address] [place] [address] PCP - General Internal Medicine 08/02/23 Paulo Meraz MD Process Machine Operator Cardiovascular Disease 02/17/21 Jose Marcelo PA [address] [place] [address] [phone] Specialist Cardiology 09/08/22 Kelin Reeves NP [address] [place] [address] Cardiology 08/18/23 documented as of this encounter
--- OUTSIDE RECORDS SUMMARY | 2024-11-22 11:51 | XMS_ITS | Encounter Summary ---
Author Organization [facility] Address [address] [place] [address] Care Team Providers Care Manhole Builder Name Role Phone Paulo Meraz MD Unavailable Jose Marcelo Unavailable Bernardo Dorantes MD Primary Care Provider Kelin Reeves NP Unavailable [phone] Encounter Details Date Type Department Care Team Description 10/18/2023 Sheet Turner Report Medical Records [address] [place] [address] Reyes Good MD Social History Tobacco Use Types Packs/Day [...] on filedocumented in this encounter Care Teams Manhole Builder Relationship Specialty Start Date End Date Bernardo Dorantes MD [address] [place], [place] [phone] PCP - General Internal Medicine 08/02/23 Paulo Meraz MD Working Manager Cardiovascular Disease 02/17/21 Jose Marcelo PA Specialist Cardiology 09/08/22 Kelin Reeves NP [address] [place] [address] Cardiology 08/18/23 documented as of this encounter
--- OUTSIDE RECORDS SUMMARY | 2024-11-22 11:51 | XMS_ITS | Encounter Summary ---
Author Organization [facility] Address [address] [place] [address] Care Team Providers Care Children'S Service Supervisor Name Role Phone [place] Colasacco, Deidra DO Primary Care Pro vider Unavailable [place] Colasacco, Deidra DO Primary Care Pro vider Unavailable [place] Colasacco, Deidra DO Unavailable Unavailable Hill Felton MD Primary Care Provider [phone] [place] Colasacco, Deidra DO Primary Care Pro vider Unavailable Paulo Meraz MD Unavailable Danish Gore DO Primary Care Provider Sherry vailable Vita Hale PA-C Primary Care Provider U Rasta Burciaga MD Primary Care Provider [phone] Michelle Calderón MD Primary Care Provider Unavailable Rasta Syed MD Primary Care Provider [phone] Jose Marcelo Unavailable Bernardo Dorantes MD Primary Care Provider Kelin Reeves NP Unavailable [phone] Encounter Details Date Type Department Care Team Description 07/05/2015 Hospital Medical Records [address] [place] [address] Nnamdi Flores MD [address] [place] [address] Social History Tobacco Use Types Packs/Day Years [...] on filedocumented in this encounter Care Teams Children'S Service Supervisor Relationship Specialty Start Date End Date Deidra Sneed DO PCP - General Internal Medicine 06/07/15 12/18/15 Deidra Sneed DO PCP - General 12/19/15 02/02/21 Hill Felton MD [address] [place] [address] PCP - General Internal Medicine 02/03/21 02/04/21 Deidra Sneed DO PCP - General Internal Medicine 02/05/21 04/22/21 Danish Gore DO [address] [place] [address] PCP - General Internal Medicine 04/23/21 06/12/21 Vita Hale PA-C [address] [place] [address] PCP - General Internal Medicine 06/13/21 10/20/21 Rasta Syed MD [address] [place] [address] PCP - General Internal Medicine 10/21/21 07/15/22 Michelle Calderón MD [address] [place] [address] PCP - General Internal Medicine 07/16/22 07/19/22 Rasta Syed MD [address] [place] [address] PCP - General Internal Medicine 07/20/22 08/01/23 Bernardo Dorantes MD [address] [place] [address] PCP - General Internal Medicine 08/02/23 Deidra Sneed, DO Internal Medicine 12/19/15 07/19/22 Paulo Meraz MD [address] [place] [address] Materials Engineer Cardiovascular Disease 02/17/21 Jose Marcelo PA [address] [place] [address] Specialist Cardiology 09/08/22 Kelin Reeves NP [address] [place] [address] Cardiology 08/18/23 documented as of this encounter
--- OUTSIDE RECORDS SUMMARY | 2024-11-22 11:51 | XMS_ITS | Encounter Summary ---
Author Organization [facility] Address [address] [place] [address] Care Team Providers Care Grounds/Maintenance Specialist Name Role Phone Paulo Meraz MD Unavailable Rasta Syed MD Primary Care Provider [phone] Jose Marcelo Unavailable Bernardo Dorantes MD Primary Care Provider Kelin Reeves NP Unavailable [phone] Reason for Visit * Reason Comments E-prescribe Rx Request Encounter Details Date Type Department Care Team Description 07/24/2023 Refill Pulmonology - [place] [facility] [address] [place] [address] Wayne Winters MD [address] [place] [address] E-prescribe Rx Request Social History Tobacco Use Types Packs/Day [...] suspected to have Coronavirus/COVID-19? No / Unsure 07/27/2023 1:58 PM EDT documented as of this encounter Miscellaneous Notes * Telephone Encounter - Deena John - 07/26/2023 4:37 PM EDT [facility] 02/01/23 documented in this encounter Plan of Treatment Not on file documented as of this encounter Visit Diagnoses Diagnosis Chronic obstructive pulmonary disease, unspecified COPD type (HCC) Malignant neoplasm of lung, unspecified laterality, unspecified part of lung (HCC) documented in this encounter Care Teams Grounds/Maintenance Specialist Relationship Specialty Start Date End Date Rasta Syed MD [address] [place] [address] PCP - General Internal Medicine 07/20/22 08/01/23 Bernardo Dorantes MD [address] [place] [address] PCP - General Internal Medicine 08/02/23 Paulo Meraz MD Teller Cardiovascular Disease 02/17/21 Jose Marcelo PA [address] [place] [address] Specialist Cardiology 09/08/22 Kelin Reeves NP [address] [place] [address] Cardiology 08/18/23 documented as of this encounter
--- OUTSIDE RECORDS SUMMARY | 2024-11-22 11:51 | XMS_ITS | Encounter Summary ---
Author Organization [facility] Address [address] [place] [address] Care Team Providers Care Mortgage Originator Name Role Phone Paulo Meraz MD Unavailable Rasta Syed MD Primary Care Provider [phone] Jose Marcelo Unavailable Bernardo Dorantes MD Primary Care Provider Kelin Reeves NP Unavailable [phone] Encounter Details Date Type Department Care Team Description 02/10/2023 Orders Only Pulmonology - [place] [address] [facility] [address] [place] [address] Wayne Winters MD [address] [place] [phone] Social History Tobacco Use Types Packs/Day Years [...] on filedocumented in this encounter Care Teams Mortgage Originator Relationship Specialty Start Date End Date Rasta Syed MD [address] [place] [address] PCP - General Internal Medicine 07/20/22 08/01/23 Bernardo Dorantes MD [address] [place] [address] PCP - General Internal Medicine 08/02/23 Paulo Meraz MD Media Relations Director Cardiovascular Disease 02/17/21 Jose Marcelo PA [address] [place] [address] Specialist Cardiology 09/08/22 Kelin Reeves NP [address] [place] [address] Cardiology 08/18/23 documented as of this encounter
--- OUTSIDE RECORDS SUMMARY | 2024-11-22 11:51 | XMS_ITS | Encounter Summary ---
Author Organization [facility] Address [address] [place] [address] Care Team Providers Care Cluster Bore Operator Name Role Phone Paulo Meraz MD Unavailable Rasta Syed MD Primary Care Provider [phone] Jose Marcelo Unavailable Bernardo Dorantes MD Primary Care Provider Kelin Reeves NP Unavailable Encounter Details Date Type Department Care Team Description 05/28/2023 Orders Only Cardio PVC POC [address] [facility] [address] [place] [address] Default, Provider Social History Tobacco Use Types Packs/Day [...] Date/Time Associated Diagnosis Comments OUTSIDE EKG Routine 05/27/2023 OUTSIDE LAB Routine 05/27/2023 documented in this encounter Results * OUTSIDE LAB (05/27/2023) Provider Default LAB * OUTSIDE EKG (05/27/2023) Provider Default CARDIOLOGY documented in this encounter Visit Diagnoses Not on filedocumented in this encounter Care Teams Cluster Bore Operator Relationship Specialty Start Date End Date Rasta Syed MD [address] [place] [address] [phone] PCP - General Internal Medicine 07/20/22 08/01/23 Bernardo Dorantes MD [address] [place] [address] PCP - General Internal Medicine 08/02/23 Paulo Meraz MD Personal Banking Officer Cardiovascular Disease 02/17/21 Jose Marcelo PA [address] [place] [address] Specialist Cardiology 09/08/22 Kelin Reeves NP [address] [place] [address] Cardiology 08/18/23 documented as of this encounter
--- OUTSIDE RECORDS SUMMARY | 2024-11-22 11:51 | XMS_ITS | Encounter Summary ---
Author Organization [facility] Address [address] [place] [address] Care Team Providers Care Signal Wirer Name Role Phone Paulo Meraz MD Unavailable Rasta Syed MD Primary Care Provider [phone] Jose Marcelo Unavailable Bernardo Dorantes MD Primary Care Provider Kelin Reeves NP Unavailable [phone] Reason for Visit * Reason Onset Date Comments refill request 04/13/2023 Encounter Details Date Type Department Care Team Description 04/13/2023 Refill Adult Medicine [address] [phone] Rasta Syed MD [address] [place] [address] [phone] refill request Social History Tobacco Use Types Packs/Day Years [...] encounter Miscellaneous Notes * Telephone Encounter - Alissa Frey M.A. - 04/15/2023 9:38 AM EDT Lab Results Component Value Date NA 135 01/17/2021 K 5.3 01/17/2021 CO2 31 01/17/2021 CL 96 01/17/2021 BUN 34 01/17/2021 CREAT 8.59 01/17/2021 GLU 101 01/17/2021 CA 10.7 01/17/2021 GFR 7 01/17/2021 Last appt with Bettina Watts APRN 11/2022 Next appt with pcp 11/2023 * Telephone Encounter - Karely Jeffrey - 04/13/2023 1:46 PM EDT Faxed to pharmacy * Telephone Encounter - Alissa Frey M.A. - 04/13/2023 12:12 PM EDT Lab Results Component Value Date NA 135 01/17/2021 K 5.3 01/17/2021 CO2 31 01/17/2021 CL 96 01/17/2021 BUN 34 01/17/2021 CREAT 8.59 01/17/2021 GLU 101 01/17/2021 CA 10.7 01/17/2021 GFR 7 01/17/2021 Last appt 11/30/22 with Bettina Watts APRN Pending appt 11/2023 with pcp * Telephone Encounter - Paula Augustine - 04/13/2023 11:15 AM EDT Patient would like script to be: E-PRESCRIBED/FAXED TO PHARMACY WHEN WAS THE PATIENT'S LAST APPOINTMENT IN ADULT MEDICINE? 11/30/2022 WHEN WAS THE LAST TIME THE PATIENT SAW THEIR PCP? 06/15/2022 Does patient have an upcoming appointment? Yes 12/03/2023 (THE MEDICATION REQUESTED IS ON THE MED LIST ABOVE) All of the medications requested were on the CURRENT MEDS list Did you check the Pharmacy information above?: YES Patient wants: 90 -day supply Is this a mail order prescription request ? NO If the refill is from a FAXED refill request what is the RX # listed on the fax? N/A Patients current insurance carrier is: Payor: [facility] FFS / Plan: [facility] [employer] / Product Type: MEDICAID RISK documented in this encounter Plan of Treatment Not on file documented as of this encounter Visit Diagnoses Not on filedocumented in this encounter Care Teams Signal Wirer Relationship Specialty Start Date End Date Rasta Syed MD [address] [place] [address] 11588 PCP - General Internal Medicine 07/20/22 08/01/23 Bernardo Dorantes MD [address] [place] [address] PCP - General Internal Medicine 08/02/23 Paulo Meraz MD Human Resources Temp Cardiovascular Disease 02/17/21 Jose Marcelo PA [address] [place] [address] 12998 Specialist Cardiology 09/08/22 Kelin Reeves NP [address] [place] [address] 46749 Cardiology 08/18/23 documented as of this encounter
--- OUTSIDE RECORDS SUMMARY | 2024-11-22 11:51 | XMS_ITS | Encounter Summary ---
Author Organization [facility] Address [address] [place] [address] Care Team Providers Care Phonograph Needle Tip Maker Name Role Phone Paulo Meraz MD Unavailable Rasta Syed MD Primary Care Provider Jose Marcelo Unavailable Bernardo Dorantes MD Primary Care Provider Kelin Reeves NP Unavailable [phone] Encounter Details Date Type Department Care Team Description 05/28/2023 Hospital Medical Records [address] [place] [address] Social History Tobacco Use Types Packs/Day Years [...] Name Priority Date/Time Associated Diagnosis Comments OUTSIDE LAB Routine 06/17/2023 OUTSIDE EKG Routine 06/10/2023 OUTSIDE ECHO Routine 06/04/2023 OUTSIDE VASCULAR STUDY Routine 06/03/2023 OUTSIDE LAB Routine 05/28/2023 documented in this encounter Results * OUTSIDE LAB (06/17/2023) Provider Abstract LAB * OUTSIDE EKG (06/10/2023) Provider Abstract CARDIOLOGY * OUTSIDE ECHO (06/04/2023) Provider Abstract CARDIOLOGY * OUTSIDE VASCULAR STUDY (06/03/2023) Provider Abstract CARDIOLOGY * OUTSIDE LAB (05/28/2023) Provider Abstract LAB documented in this encounter Visit Diagnoses Not on filedocumented in this encounter Care Teams Phonograph Needle Tip Maker Relationship Specialty Start Date End Date Rasta Syed MD [address] [place] [address] 37266 PCP - General Internal Medicine 07/20/22 08/01/23 Bernardo Dorantes MD [address] [place] [address] 07708 PCP - General Internal Medicine 08/02/23 Paulo Meraz MD Arborer Cardiovascular Disease 02/17/21 Jose Marcelo PA [address] [place] [address] 23246 Specialist Cardiology 09/08/22 Kelin Reeves NP [address] [place] [address] Cardiology 08/18/23 documented as of this encounter
--- OUTSIDE RECORDS SUMMARY | 2024-11-22 11:51 | XMS_ITS | Encounter Summary ---
Author Organization [facility] Address [address] [place] [address] Care Team Providers Care Athlete Manager Name Role Phone Paulo Meraz MD Unavailable Rasta Syed MD Primary Care Provider [phone] Jose Marcelo Unavailable Bernardo Dorantes MD Primary Care Provider Kelin Reeves NP Unavailable Encounter Details Date Type Department Care Team Description 12/19/2022 Hospital Medical Records [address] [place] [address] Social History Tobacco Use Types Packs/Day Years [...] In the last 10 days, have dawit prasad been in contact with someone who was confirmed or suspected to have Coronavirus/COVID-19? No / Unsure 11/30/2022 9:02 AM EST documented as of this encounter Plan of Treatment Not on file documented as of this encounter Procedures Procedure Name Priority Date/Time Associated Diagnosis Comments OUTSIDE EKG Routine 12/22/2022 OUTSIDE LAB Routine 12/22/2022 OUTSIDE EKG Routine 12/19/2022 OUTSIDE PLAIN FILM Routine 12/19/2022 documented in this encounter Results * OUTSIDE LAB (12/22/2022) Provider Abstract LAB * OUTSIDE EKG (12/22/2022) Provider Abstract CARDIOLOGY * OUTSIDE PLAIN FILM (12/19/2022) Provider Abstract RADIOLOGY * OUTSIDE EKG (12/19/2022) Provider Abstract CARDIOLOGY documented in this encounter Visit Diagnoses Not on filedocumented in this encounter Care Teams Athlete Manager Relationship Specialty Start Date End Date Rasta Syed MD [address] [place] [address] PCP - General Internal Medicine 07/20/22 08/01/23 Bernardo Dorantes MD [address] [place] [address] PCP - General Internal Medicine 08/02/23 Paulo Meraz MD Manager Search Engine Cardiovascular Disease 02/17/21 Jose Marcelo PA [address] [place] [address] 29814 Specialist Cardiology 09/08/22 Kelin Reeves NP [address] [place] [address] Cardiology 08/18/23 documented as of this encounter
--- OUTSIDE RECORDS SUMMARY | 2024-11-22 11:51 | XMS_ITS | Encounter Summary ---
Author Organization [facility] Address [address] [address] Phone Care Team Providers Care Can Reforming Machine Operator Name Role Phone Bernardo Dorantes Primary Care Provider [phone] Encounter Details Date Type Department Care Team ([facility] st Contact Info) Description 11/14/2024 Treatment [facility] [address] [address] Anne No MD [address] [address] Social History Tobacco Use Types [...] Dialysis Note - Anne No MD - 11/14/2024 12:00 AM EST Patient: Hoang Larson : 1970 Note Type: Dialysis Rounds-Basic Telehealth Service Date: 11/14/2024 Telehealth encounter using audiovisual technology, performed according to state requirements. Appropriate patient consent obtained. This patient was personally seen for a basic visit as part of routine monthly dialysis care for end stage renal disease. Attending Cement Finisher Helper: ANNE NO MD Dialysis Location: [facility] Schedule: Shift: 1 ADEQUACY ASSESSMENT Kt/V, [...] by: ANNE NO MD on 11/22/2024 at 01:16:07 AM documented in this encounter Plan of Treatment Upcoming Encounters Date Type Department Care Team (Late st Contact Info) Description 12/04/2024 3:30 PM EDT Scheduled Only [facility] - [facility] [address] [place] [address] documented as of this encounter Visit Diagnoses Not on filedocumented in this encounter Care Teams Can Reforming Machine Operator Relationship Specialty Start Date End Date Bernardo Dorantes [address] [place] [address] PCP - General 11/06/24 documented as of this encounter
--- OUTSIDE RECORDS SUMMARY | 2024-11-22 11:51 | XMS_ITS | Encounter Summary ---
Author Organization [facility] Address [address] [place] [address] Care Team Providers Care Terrazzo Laborer Name Role Phone Paulo Meraz MD Unavailable Rasta Syed MD Primary Care Provider [phone] Jose Marcelo Unavailable Bernardo Dorantes MD Primary Care Provider Kelin Reeves NP Unavailable [phone] Encounter Details Date Type Department Care Team Description 05/28/2023 Hardwood Floor Installer Report Medical Records [address] [place] [address] Paulo Meraz MD [address] [place] [address] [phone] Social History Tobacco Use Types Packs/Day Years [...] on filedocumented in this encounter Care Teams Terrazzo Laborer Relationship Specialty Start Date End Date Rasta Syed MD [address] [place] [address] PCP - General Internal Medicine 07/20/22 08/01/23 Bernardo Dorantes MD [address] [place] [address] PCP - General Internal Medicine 08/02/23 Paulo Meraz MD Injection Molding Machine Operator Cardiovascular Disease 02/17/21 Jose Marcelo PA [address] [place] [address] [phone] Specialist Cardiology 09/08/22 Kelin Reeves NP [address] [place] [address] [phone] Cardiology 08/18/23 documented as of this encounter
--- OUTSIDE RECORDS SUMMARY | 2024-11-22 11:51 | XMS_ITS | Encounter Summary ---
Author Organization [facility] Address [address] [place] [address] Care Team Providers Care Telegraph And Teletype Operator Name Role Phone Paulo Meraz MD Unavailable Jose Marcelo Unavailable Bernardo Dorantes MD Primary Care Provider Kelin Revees NP Unavailable [phone] Encounter Details Date Type Department Care Team Description 10/18/2023 Tamping Machine Operator Report Medical Records [address] [place] [address] Reyes Good MD Social History Tobacco Use [...] on filedocumented in this encounter Care Teams Telegraph And Teletype Operator Relationship Specialty Start Date End Date Bernardo Dorantes MD [address] [place], [place] [phone] PCP - General Internal Medicine 08/02/23 Paulo Meraz MD Automation Sales Manager Cardiovascular Disease 02/17/21 Jose Marcelo PA Specialist Cardiology 09/08/22 Kelin Reeves NP [address] [place] [address] Cardiology 08/18/23 documented as of this encounter
--- OUTSIDE RECORDS SUMMARY | 2024-11-22 11:51 | XMS_ITS | Encounter Summary ---
Author Organization [facility] Address [address] [place] [address] Care Team Providers Care Mobile Sales Consultant Name Role Phone Deidra Sneed DO Primary Care Pro vider Unavailable Deidra Sneed DO Unavailable Unavailable Hill Felton MD Primary Care Provider [phone] Deidra Sneed DO Primary Care Pro vider Unavailable Paulo Meraz MD Unavailable Danish Gore DO Primary Care Provider Sherry vailable Vita Hale PA-C Primary Care Provider U Rasta Burciaga MD Primary Care Provider [phone] Michelle Calderón MD Primary Care Provider Unavailable Rasta Syed MD Primary Care Provider [phone] Jose Marcelo Unavailable Bernardo Dorantes MD Primary Care Provider Kelin Reeves NP Unavailable [phone] Encounter Details Date Type Department Care Team Description 04/10/2019 Set Illustrator Report Medical Records [address] [place] [address] Saundra Mariee MD Social History Tobacco Use Types Packs/Day [...] on filedocumented in this encounter Care Teams Mobile Sales Consultant Relationship Specialty Start Date End Date Deidra Sneed DO PCP - General 12/19/15 02/02/21 Hill Felton MD [address] [place], [place] PCP - General Internal Medicine 02/03/21 02/04/21 Deidra Sneed DO PCP - General Internal Medicine 02/05/21 04/22/21 Danish Gore DO [address] [place], [place] PCP - General Internal Medicine 04/23/21 06/12/21 Vita Hale PA-C [address] [place], [place] PCP - General Internal Medicine 06/13/21 10/20/21 Rasta Syed MD [address] [place] [address] PCP - General Internal Medicine 10/21/21 07/15/22 Michelle Calderón MD [address] [place] [address] PCP - General Internal Medicine 07/16/22 07/19/22 Rasta Syed MD [address] [place] [address] 88841 PCP - General Internal Medicine 07/20/22 08/01/23 Bernardo Dorantes MD [address] [place] [address] 68[address] PCP - General Internal Medicine 08/02/23 Deidra Sneed DO Internal Medicine 12/19/15 07/19/22 Paulo Meraz MD [address] [place] [address] Manager Corporate Marketing Cardiovascular Disease 02/17/21 Jose Marcelo PA [address] [place] [address] 18416 Specialist Cardiology 09/08/22 Kelin Reeves NP [address] [place] [address] Cardiology 08/18/23 documented as of this encounter
--- OUTSIDE RECORDS SUMMARY | 2024-11-22 11:52 | XMS_ITS | Encounter Summary ---
Author Organization [facility] Address [address] [place] [address] Care Team Providers Care Molding Engineer Name Role Phone Deidra Sneed DO Primary Care Pro vider Unavailable Deidra Sneed DO Unavailable Unavailable Hill Felton MD Primary Care Provider [phone] Deidra Sneed DO Primary Care Pro vider Unavailable Paulo Meraz MD Unavailable Danish Gore DO Primary Care Provider Sherry vailable Vita Hale PA-C Primary Care Provider U Rasta Burciaga MD Primary Care Provider [phone] Michelle Calderón MD Primary Care Provider Unavailable Rasta Syed MD Primary Care Provider [phone] Jose Marcelo Unavailable Bernardo Dorantes MD Primary Care Provider Kelin Reeves NP Unavailable [phone] Reason for Visit * Reason Onset Date Comments Prior Authorization 07/02/2017 Encounter Details Date Type Department Care Team Description 07/02/2017 Telephone [facility] - [address] [phone] Deidra Sneed DO Prior Authorization Social History Tobacco Use Types Packs/Day Years Used Date Smoking Tobacco: Every Day Cigarettes 1 8 Smokeless Tobacco: Former Quit: 07/03/2016 Alcohol Use Standard Drinks/Week Comments Not Asked 0 (1 standard drink = 0.6 oz pur e alcohol) Sex Assigned at Date Recorded Not on file Job Start Date Occupation Industry Not on file Not on file Not on file documented as of this encounter Miscellaneous Notes * Telephone Encounter - Dickmarleny Gonzales - 07/02/2017 10:47 AM EDT [facility] No auth Req [id number] * Telephone Encounter - Preeti Adler - 07/02/2017 10:35 AM EDT Requesting prior authorization for an echocardiogram. Thank you documented in this encounter Plan of Treatment Not on file documented as of this encounter Visit Diagnoses Not on filedocumented in this encounter Care Teams Molding Engineer Relationship Specialty Start Date End Date Deidra Sneed DO PCP - General 12/19/15 02/02/21 Hill Felton MD [address] [place], [place] PCP - General Internal Medicine 02/03/21 02/04/21 Deidra Sneed DO PCP - General Internal Medicine 02/05/21 04/22/21 Danish Gore DO [address] [place], [place] PCP - General Internal Medicine 04/23/21 06/12/21 Vita Hale PA-C [address] [place], [place] PCP - General Internal Medicine 06/13/21 10/20/21 Rasta Syed MD [address] [place] [address] PCP - General Internal Medicine 10/21/21 07/15/22 Michelle Calderón MD [address] [place] [address] 15444 PCP - General Internal Medicine 07/16/22 07/19/22 Rasta Syed MD [address] [place] [address] PCP - General Internal Medicine 07/20/22 08/01/23 Bernardo Dorantes MD [address] [place] [address] PCP - General Internal Medicine 08/02/23 Deidra Sneed, DO Internal Medicine 12/19/15 07/19/22 Paulo Meraz MD [address] [place] [address] Room Service Runner Cardiovascular Disease 02/17/21 Jose Marcelo PA [address] [place] [address] Specialist Cardiology 09/08/22 Kelin Reeves NP [address] [place] [address] 33431 Cardiology 08/18/23 documented as of this encounter
--- OUTSIDE RECORDS SUMMARY | 2024-11-22 11:52 | XMS_ITS | Encounter Summary ---
Author Organization [facility] Address [address] [place] [address] Care Team Providers Care Resistance Welder Name Role Phone Deidar Sneed DO Primary Care Pro vider Unavailable Deidra Sneed DO Unavailable Unavailable Hill Felton MD Primary Care Provider [phone] Deidra Sneed DO Primary Care Pro vider Unavailable Paulo Meraz MD Unavailable Danish Gore DO Primary Care Provider Sherry vailable Vita Hale PA-C Primary Care Provider U Rasta Burciaga MD Primary Care Provider [phone] Michelle Calderón MD Primary Care Provider Unavailable Rasta Syed MD Primary Care Provider [phone] Jose Marcelo Unavailable Bernardo Dorantes MD Primary Care Provider Kelin Reeves NP Unavailable [phone] Encounter Details Date Type Department Care Team Description 03/28/2018 Hospital Medical Records [address] [place] [address] Rehab., [place] Social History Tobacco Use Types Packs/Day Years [...] on filedocumented in this encounter Care Teams Resistance Welder Relationship Specialty Start Date End Date Deidra Sneed DO PCP - General 12/19/15 02/02/21 Hill Felton MD [address] [place], [place] PCP - General Internal Medicine 02/03/21 02/04/21 Deidra Sneed DO PCP - General Internal Medicine 02/05/21 04/22/21 Danish Gore DO [address] [place], [place] PCP - General Internal Medicine 04/23/21 06/12/21 Vita Hale PA-C [address] [place], [place] PCP - General Internal Medicine 06/13/21 10/20/21 Rasta Syed MD [address] [place] [address] 29781 PCP - General Internal Medicine 10/21/21 07/15/22 Michelle Calderón MD [address] [place] [address] PCP - General Internal Medicine 07/16/22 07/19/22 Rasta Syed MD [address] [place] [address] 34512 PCP - General Internal Medicine 07/20/22 08/01/23 Bernardo Dorantes MD [address] [place] [address] PCP - General Internal Medicine 08/02/23 Deidra Sneed DO Internal Medicine 12/19/15 07/19/22 Paulo Meraz MD [address] [place] [address] Bronzer Cardiovascular Disease 02/17/21 Jose Marcelo PA [address] [place] [address] 85[address] Specialist Cardiology 09/08/22 Kelin Reeves, LIMA [address] [place] [address] Cardiology 08/18/23 documented as of this encounter
--- OUTSIDE RECORDS SUMMARY | 2024-11-22 11:52 | XMS_ITS | Encounter Summary ---
Author Organization [facility] Address [address] [place] [address] Care Team Providers Care Department Traffic Freight Router Name Role Phone Deidra Sneed DO Primary Care Pro vider Unavailable Deidra Sneed DO Unavailable Unavailable Hill Felton MD Primary Care Provider [phone] Deidra Sneed DO Primary Care Pro vider Unavailable Paulo Meraz MD Unavailable Danish Gore DO Primary Care Provider Sherry vailable Vita Hale PA-C Primary Care Provider U Rasta Burciaga MD Primary Care Provider [phone] Michelle Calderón MD Primary Care Provider Unavailable Rasta Syed MD Primary Care Provider [phone] Jose Marcelo Unavailable Bernardo Dorantes MD Primary Care Provider Kelin Reeves NP Unavailable [phone] Encounter Details Date Type Department Care Team Description 03/29/2018 Hospital Medical Records [address] [place] [address] Ezio Boyle MD [address] [place], [place] [phone] Social History Tobacco Use Types Packs/Day Years [...] on filedocumented in this encounter Care Teams Department Traffic Freight Router Relationship Specialty Start Date End Date Deidra Sneed DO PCP - General 12/19/15 02/02/21 Hill Felton MD [address] [place] [address] PCP - General Internal Medicine 02/03/21 02/04/21 Deidra Sneed DO PCP - General Internal Medicine 02/05/21 04/22/21 Danish Gore DO [address] [place] [address] PCP - General Internal Medicine 04/23/21 06/12/21 Vita Hale PA-C [address] [place], [place] PCP - General Internal Medicine 06/13/21 10/20/21 Rasta Syed MD [address] [place] [address] PCP - General Internal Medicine 10/21/21 07/15/22 Michelle Calderón MD [address] [place] [address] 58928 PCP - General Internal Medicine 07/16/22 07/19/22 Rasta Syed MD [address] [place] [address] 58271 PCP - General Internal Medicine 07/20/22 08/01/23 Bernardo Dorantes MD [address] [place] [address] 30144 PCP - General Internal Medicine 08/02/23 Deidra Sneed, DO Internal Medicine 12/19/15 07/19/22 Paulo Meraz MD [address] [place] [address] Electronic Security Technician Cardiovascular Disease 02/17/21 Jose Marcelo PA [address] [place] [address] 10959 Specialist Cardiology 09/08/22 Kelin Reeves NP [address] [place] [address] Cardiology 08/18/23 documented as of this encounter
--- OUTSIDE RECORDS SUMMARY | 2024-11-22 11:52 | XMS_ITS | Encounter Summary ---
Author Organization [facility] Address [address] [place] [address] Care Team Providers Care Binder Technician Name Role Phone LisetpietroDeidra Lam DO Unavailable Unavailable Paulo Meraz MD Unavailable Rasta Syed MD Primary Care Provider [phone] Michelle Calderón MD Primary Care Provider Unavailable Rasta Syed MD Primary Care Provider [phone] Jose Marcelo Unavailable Bernardo Dorantes MD Primary Care Provider Kelin Reeves NP Unavailable [phone] Reason for Visit * Reason Onset Date Comments pain, chest 02/03/2022 Encounter Details Date Type Department Care Team Description 02/03/2022 Telephone Cardio PVC POC [address] [facility] [address] [place], [place] [id number] Paulo Meraz MD [address] [place] [address] [phone] pain, chest Social History Tobacco Use Types Packs/Day Years Used Date Smoking Tobacco: Former Cigarettes 1 8 0 09/27/1987 - 12/2019 Smokeless Tobacco: Former Quit: 07/03/2016 Alcohol Use [...] suspected to have Coronavirus/COVID-19? No / Unsure 02/04/2022 8:24 AM EDT documented as of this encounter Miscellaneous Notes * Telephone Encounter - Pinky Keller PA-C - 02/04/2022 1:18 PM EDT Ok great. My apologies for not realizing you were seeing him when I sent the task! Thanks * Telephone Encounter - Paulo Meraz MD - 02/04/2022 12:33 PM EDT I saw him this morning. Setting him up for a cath next week. No colonoscopy until catheterization was done. He knows this now. He just had a stent in November so is not coming off of clopidogrel anytimesoon. * Telephone Encounter - Pinky Keller PA-C - 02/04/2022 10:[address] Meraz- see comment from Isra that patient needs clearance for colonoscopy on 02/09? If you need to bring him in I am happy to see him this afternoon around 3pm. Let me know * Telephone Encounter - Isra Cox - 02/03/2022 4:43 PM EDT Hungarian speaking pt calling stating he is having surgery on 02/09 @ [address] for a colonoscopy. Pt states he needs a clearance to have surgery? Pls call pt at [phone] * Telephone Encounter - Doris Jorgensen - 02/03/2022 11:21 AM EDT Thank you Laurence * Telephone Encounter - Laurence Read - 02/03/2022 11:09 AM EDT Will do. * Telephone Encounter - Doris Jorgensen - 02/03/2022 10:55 AM EDT JM Pt only speaks Hungarian and does not have anyone to interpret,when you call him back can you callhim with a Hungarian Speaking person from our office at [phone] Medical Records : Please obtain records from [facility] phone # [phone] * Telephone Encounter - Bhavya Kulkarni - 02/03/2022 10:46 AM EDT Pt called back to office. Pt speaks THAI ONLY Pt is NOT having active chest pain. Initial call was to relate has chest pain when walking more than five minutes, experiences nausea, SOB, Cardiology [facility] * Telephone Encounter - Paulo Meraz MD - 02/03/2022 10:26 AM EDT Tried the number for Hoang and his sisters number. No answer. Perhaps they have gone to the hospital * Telephone Encounter - Doris Jorgensen - 02/03/2022 10:12 AM EDT The only cath information I can find is from 2016 and it is in media section of [employer]. Medical Records: Can you find updated information for SAKINA ? I did look in [employer] and I didn't find anything * Telephone Encounter - Paulo Meraz MD - 02/03/2022 10:03 AM EDT Is a possible process to get the information about the coronary stenting. I do not see any record of it * Telephone Encounter - Doris Jorgensen - 02/03/2022 8:50 AM EDT OSWALDO ZHANG 06/13/21 Pt due for an appt, no show Sep 2021 Pt speaks Hungarian. Pt sister interpreted for pt Pt has CP with exertion located in center of chest, does not radiate, occurring for the past month on and off. Feels like pressure can last up to 45 minutes. Presently is not having chest pain. Nausea at times, no sweating. Resting and taking tylenol relieves pain. Informed sister that pt should call 911 for chest pain lasting 15 minutes or longer. * Telephone Encounter - Diann Park - 02/03/2022 8:44 AM EDT Dolores is calling about patient experiencing chest pain and shortness of breath whenever he walks or goes upstairs. She stated patient did have a stent placed a few months ago in [place]. Patient states he has no chest pain or shortness of breath at the moment. They would like a call back to see what they should do. Patient no showed his last appointment with Dr Meraz on 09/29/21. Patient speaks lithuanian and can be reached at [phone], his sister Dolores can interpret. documented in this encounter Plan of Treatment Not on file documented as of this encounter Visit Diagnoses Not on filedocumented in this encounter Care Teams Binder Technician Relationship Specialty Start Date End Date Rasta Syed MD [address] [place] [address] PCP - General Internal Medicine 10/21/21 07/15/22 La Salle-Michelle Nova MD [address] [place] [address] PCP - General Internal Medicine 07/16/22 07/19/22 Rasta Syed MD [address] [place] [address] PCP - General Internal Medicine 07/20/22 08/01/23 Bernardo Dorantes MD [address] [place] [address] PCP - General Internal Medicine 08/02/23 Deidra Sneed, DO Internal Medicine 12/19/15 07/19/22 Paulo Meraz MD Cardiograph Operator Cardiovascular Disease 02/17/21 Jose Marcelo PA [address] [place] [address] [phone] Specialist Cardiology 09/08/22 Kelin Reeves NP [address] [place] [address] [phone] Cardiology 08/18/23 documented as of this encounter
--- OUTSIDE RECORDS SUMMARY | 2024-11-22 11:52 | XMS_ITS | Encounter Summary ---
Author Organization [facility] Address [address] [place] [address] Care Team Providers Care Gold Buyer Name Role Phone Deidra Sneed DO Primary Care Pro vider Unavailable Deidra Sneed DO Unavailable Unavailable Hill Felton MD Primary Care Provider [phone] Deidra Sneed DO Primary Care Pro vider Unavailable Paulo Meraz MD Unavailable Danish Gore DO Primary Care Provider Sherry vailable Vita Hale PA-C Primary Care Provider U Rasta Burciaga MD Primary Care Provider [phone] Michelle Calderón MD Primary Care Provider Unavailable Rasta Syed MD Primary Care Provider [phone] Jose Marcelo Unavailable Bernardo Dorantes MD Primary Care Provider Kelin Reeves NP Unavailable [phone] Encounter Details Date Type Department Care Team Description 06/17/2017 Orders Only Adult Medicine [address] [id number] Deidra Sneed DO Macrocytic anemia (Primary Dx); ESRD on dialysis (HCC); Essential hypertension Social History Tobacco Use Types Packs/Day Years [...] on file documented as of this encounter Results * PROSTATE SPEC. AG, SCREEN (01/11/2018 10:08 AM EDT) PSA SCREEN 3.2 0.0 - 4.0 ng/ml 01/11/2018 12:25 PM EDT [facility] 01/11/2018 10:0 8 AM EDT 01/11/2018 10:08 AM EDT Bizible DO LAB Performing Organization Address City/[facility]/ZIP Co de Phone Number [address] * IRON/TIBC (01/11/2018 10:08 AM EDT) UNSATURATED IRON BINDING CAP 202 ug/dl 01/11/2018 1:09 PM EDT [facility] TIBC 265 162 - 506 ug/dL 01/11/2018 1:09 PM EDT [facility] IRON 63 50 - 160 ug/dL 01/11/2018 12:36 PM EDT [facility] % FE SATURATION 24 20 - 50 % 8 1:09 PM EDT [facility] 01/11/2018 10:0 8 AM EDT 01/11/2018 10:08 AM EDT Linkagoalo DO LAB [address] * FOLIC ACID (01/11/2018 10:08 AM EDT) FOLATE 8.1 2.8 - 17.0 ng/ml 01/11/2018 2:16 PM EDT [facility] 01/11/2018 10:0 8 AM EDT 01/11/2018 10:08 AM EDT Deidra Aguayo Colasacco DO LAB [facility] * VITAMIN B-12, ASSAY (01/11/2018 10:08 AM EDT) VITAMIN B12 321 211 - 946 pg/mL 01/11/2018 12:25 PM EDT [facility] 01/11/2018 10:0 8 AM EDT 01/11/2018 10:08 AM EDT Deidra Aguayo Colasacco DO LAB [address] documented in this encounter Visit Diagnoses Diagnosis Macrocytic anemia- Primary Unspecified deficiency anemia ESRD on dialysis (HCC) End stage renal disease Essential hypertension Unspecified essential hypertension documented in this encounter Care Teams Gold Buyer Relationship Specialty Start Date End Date Deidra Sneed DO PCP - General 12/19/15 02/02/21 Hill Felton MD [address] [place] [address] PCP - General Internal Medicine 02/03/21 02/04/21 Deidra Sneed DO PCP - General Internal Medicine 02/05/21 04/22/21 Danish Gore DO [address], [place] PCP - General Internal Medicine 04/23/21 06/12/21 Vita Hale PA-C [address], [place] PCP - General Internal Medicine 06/13/21 10/20/21 Rasta Syed MD [address] [place] [address] PCP - General Internal Medicine 10/21/21 07/15/22 Michelle Calderón MD [address] [place] [address] PCP - General Internal Medicine 07/16/22 07/19/22 Rasta Syed MD [address] [place] [address] PCP - General Internal Medicine 07/20/22 08/01/23 Bernardo Dorantes MD [address] [place] [address] PCP - General Internal Medicine 08/02/23 Deidra Sneed, DO Internal Medicine 12/19/15 07/19/22 Paulo Meraz MD [address] [place] [address] Visual Designer Cardiovascular Disease 02/17/21 Jose Marcelo PA [address] [place] [address] [phone] Specialist Cardiology 09/08/22 Kelin Reeves NP [address] [place] [address] Cardiology 08/18/23 documented as of this encounter
--- OUTSIDE RECORDS SUMMARY | 2024-11-22 11:52 | XMS_ITS | Clinical Summary ---
Author Organization [facility] Address [address] [place] [address] Care Team Providers Care Slab Grinder Name Role Phone Rasta Syed MD Primary Care Provider [phone] Allergies No known active allergies Medications Medication Sig Dispensed Refills Start Date End Date Status Albuterol Sulfate 108 (90 Base) MCG/ACT AEPB Inhale into the lungs. 0 Active amLODIPine (NORVASC) tablet 5 mg Take 1 tablet (5 mg total) by mouth daily. 0 Active aspirin EC 81 MG tablet Take 1 tablet (81 mg total) by mouth daily. 0 Active atorvastatin (LIPITOR) tablet 40 mg Take 1 tablet (40 mg total) by mouth daily. 0 Active carvedilol (COREG) 12.5 MG tablet Take 1 tablet (12.5 mg total) by mouth 2 (two) times a day with meals. 0 Active dolutegravir sodium (TIVICAY) 50 MG TABS tablet Take 1 tablet (50 mg total) by mouth. 0 Active ipratropium-albutero l (DUO-NEB) 0.5-2.5 mg/mL nebulizer Inhale 3 mL into the lungs. 0 Active LAMIVUDINE PO Take by mouth. 0 Active maraviroc (SELZENTRY) 150 MG tablet Take 2 tablets (300 mg total) by mouth 2 (two) times a day. 0 Active nicotine (NICODERM CQ) 14 MG/24HR Place 1 patch onto the skin daily. 0 Active traZODone (DESYREL) 50 MG tablet Take 2 tablets (100 mg total) by mouth every night at bedtime. 0 Active zolpidem (AMBIEN) 5 MG tablet Take 1 tablet (5 mg total) by mouth every night at bedtime as needed for sleep. 0 Active Albuterol (PROVENTIL IN) Inhale into the lungs. 0 Active LORazepam (ATIVAN) 0.5 MG tablet Take 1 tablet (0.5 mg total) by mouth every 6 (six) hours as needed. 0 Active calcium acetate (PHOSLO) 667 MG capsule Take 2 capsules (1,334 mg total) by mouth 3 (three) times a day with meals. 0 Active cyclobenzaprine (FLEXERIL) 10 MG tablet Take 1 tablet (10 mg total) by mouth 3 (three) times a day as needed for muscle spasms. 0 Active lidocaine-prilocaine (EMLA) cream Apply topically as needed. 0 Active ergocalciferol (VITAMIN D2) capsule 83662 units Take 1 capsule (50,000 Units total) by mouth once a week. 0 Active midodrine (PROAMATINE) 5 MG tablet Take 1 tablet (5 mg total) by mouth 3 (three) times a day before meals. 0 Active HYDROcodone-acetamin ophen (NORCO) 5-325 MG per tablet Take 1 tablet by mouth every 4 (four) hours as needed for pain. 120 tablet 0 07/18/2021 Active isosorbide dinitrate (ISORDIL) 30 MG tablet Take 3 tablets (90 mg total) by mouth 4 (four) times a day. 0 Active clopidogrel (PLAVIX) 75 MG tablet Take 1 tablet (75 mg total) by mouth daily. 0 Active ticagrelor (BRILINTA) 90 MG TABS tablet Take 1 tablet (90 mg total) by mouth 2 (two) times a day. 0 Active Prasugrel HCl (EFFIENT) 10 MG TABS tablet Take 1 tablet (10 mg total) by mouth daily. 0 Active metoprolol tartrate (LOPRESSOR) 50 MG tablet Take 1 tablet (50 mg total) by mouth daily. 0 Active megestrol (MEGACE) suspension 40 mg/mL TAKE 20 ML (800 MG TOTAL) BY MOUTH DAILY. 480 mL 5 04/26/2023 Active valsartan (DIOVAN) tablet 40 mg Take 1 tablet (40 mg total) by mouth daily. 0 Active amiodarone (PACERONE) 200 MG tablet Take 1 tablet (200 mg total) by mouth daily. 0 07/13/2023 Active atorvastatin (LIPITOR) tablet 80 mg Take 1 tablet (80 mg total) by mouth daily. 0 07/13/2023 Active clopidogrel (PLAVIX) 75 MG tablet Take 1 tablet (75 mg total) by mouth daily. 0 07/13/2023 Active isosorbide mononitrate (IMDUR) 60 MG 24 hr tablet Take 1 tablet (60 mg total) by mouth daily. 0 06/28/2023 Active nitroglycerin (NITROSTAT) 0.4 MG SL tablet 0 07/24/2023 Active oxyCODONE (ROXICODONE) 5 MG immediate release tablet 0 08/09/2023 Active ranolazine (RANEXA) 500 MG 12 hr tablet Take 1 tablet (500 mg total) by mouth. 0 06/18/2023 Active temazepam (RESTORIL) 15 MG capsule 0 08/05/2023 Active tenofovir (VIREAD) 300 MG tablet Take 1 tablet (300 mg total) by mouth once a week. 0 07/24/2023 Active cinacalcet (SENSIPAR) tablet 30 mg Take 1 tablet (30 mg total) by mouth daily. 0 Active Active Problems Problem Noted Date Diagnosed Date Malignant neoplasm metastatic to bone 10/02/2022 Primary cancer of left upper lobe of lung 2020 Primary cancer of unknown site 03/10/2021 Social History Tobacco Use Types Packs/Day Years Used Date Smoking Tobacco: Never Assessed Sex and Gender Information Value Date Recorded Sex Assigned at Male 03/05/2022 4:14 PM EDT Gender Identity Male 11/19/2022 11:52 AM EST Sexual Orientation Choose not to disclose 2022 11:52 AM EST Job Start Date Occupation Industry Not on file Not on file Not on file Last Filed Vital Signs Vital Sign Reading Time Taken Comments Blood Pressure 99/61 05/31/2024 10:34 AM EDT Pulse 77 05/31/2024 10:34 AM EDT Temperature 36.3 ??C (97.4 ??F) 05/31/2024 10:34 AM E DT Respiratory Rate 18 08/13/2023 11:52 AM EST Oxygen Saturation 100% 05/31/2024 10:34 AM EDT Inhaled Oxygen Concentration - - Weight 79.4 kg (175 lb) 05/31/2024 10:34 AM EDT Height 165.1 cm (5' 5 ) 05/31/2024 10:34 AM EDT Body Mass Index 29.12 05/31/2024 10:34 AM EDT Plan of Treatment Health Maintenance Due Date Last Done Comments Hepatitis C Screening 1972 Depression Screening 1984 BMI Counseling 1990 Preventative Health Evaluation 1990 Hepatitis B Vaccines (3 of 3 - 19+ 3-dose series) 04/29/2016 03/04/2016, 12/03/2015, 12/03/2015, Additional history exists Colon Cancer Screening (Colonoscopy) 2017 COVID-19 Vaccine (3 - Pfizer risk series) 09/16/2021 08/19/2021, 07/29/2021 Influenza Vaccine (#1) 2024 , 07/24/2022, 07/25/2018, Additional history exists DTap / Tdap / Td (2 - Td or Tdap) 05/18/2026 05/18/2016 Pneumococcal Vaccine (4 of 4 - PPSV23 or PCV20) 2037 06/13/2021, 10/03/2015, 08/03/2015, Additional history exists Shingrix-Zoster Vaccine Completed 08/25/2022, 07/24 RSV Ped < 20 months Aged Out No longe r eligible based on patient's age to complete this topic Care Teams Slab Grinder Relationship Specialty Start Date End Date Rasta Syed MD PCP - General Internal Medicine 06/15/22
--- OUTSIDE RECORDS SUMMARY | 2024-11-22 11:52 | XMS_ITS | Encounter Summary ---
Author Organization [facility] Address [address] [place] [address] Care Team Providers Care Drainage Design Coordinator Name Role Phone Deidra Sneed DO Primary Care Pro vider Unavailable Deidra Sneed DO Unavailable Unavailable Hill Felton MD Primary Care Provider [phone] Deidra Sneed DO Primary Care Pro vider Unavailable Paulo Meraz MD Unavailable Danish Gore DO Primary Care Provider Sherry vailable Vita Hale PA-C Primary Care Provider U Rasta Burciaga MD Primary Care Provider [phone] Michelle Calderón MD Primary Care Provider Unavailable Rasta Syed MD Primary Care Provider [phone] Jose Marcelo Unavailable Bernardo Dorantes MD Primary Care Provider Kelin Reeves NP Unavailable [phone] Encounter Details Date Type Department Care Team Description 05/23/2018 Gardening Supervisor Report Medical Records [address] [place] [address] Rehab., [place] Social History Tobacco Use Types [...] on filedocumented in this encounter Care Teams Drainage Design Coordinator Relationship Specialty Start Date End Date Deidra Sneed DO PCP - General 12/19/15 02/02/21 Hill Felton MD [address] [place] [address] PCP - General Internal Medicine 02/03/21 02/04/21 Deidra Sneed DO PCP - General Internal Medicine 02/05/21 04/22/21 Danish Gore DO [address] [place], [place] PCP - General Internal Medicine 04/23/21 06/12/21 Vita Hale PA-C [address] [place] [address] PCP - General Internal Medicine 06/13/21 10/20/21 Rasta Syed MD [address] [place] [address] PCP - General Internal Medicine 10/21/21 07/15/22 Michelle Calderón MD [address] [place] [address] PCP - General Internal Medicine 07/16/22 07/19/22 Rasta Syed MD [address] [place] [address] PCP - General Internal Medicine 07/20/22 08/01/23 Bernardo Dorantes MD [address] [place] [address] PCP - General Internal Medicine 08/02/23 Deidra Sneed DO Internal Medicine 12/19/15 07/19/22 Paulo Meraz MD [address] [place] [address] Cataloging Assistant Cardiovascular Disease 02/17/21 Jose Marcelo PA [address] [place] [id number] Specialist Cardiology 09/08/22 Kelin Reeves NP [address] [place] [address] Cardiology 08/18/23 documented as of this encounter
--- OUTSIDE RECORDS SUMMARY | 2024-11-22 11:52 | XMS_ITS | Encounter Summary ---
Author Organization [facility] [place] [address] Care Team Providers Care Industrial Twisting Machine Operator Name Role Phone Bernardo Dorantes MD Primary Care Provider Reason for Referral * Imaging (Routine) - Authorized Specialty Diagnoses / Procedures Referred By Broderick agarwal Referred To Contact Radiology Diagnoses Metastatic primary lung cancer, left (CMS/HCC) Procedures CT Chest wo Contrast Reyes Good MD [address] [place] [phone] Phone: tel: fax: [address] [address] Phone: tel: Referral ID Status Reason Start Date Expiration Date V isits Requested Visits Authorized [id number] Authorized 09/21/2024 09/21/2025 1 1 Reason for Visit * Imaging (Routine) - Authorized Specialty Diagnoses / Procedures Referred By Broderick agarwal Referred To Contact Radiology Diagnoses Metastatic primary lung cancer, left (CMS/HCC) Procedures CT Chest wo Contrast Reyes Good MD [address] [place] [address] Phone: tel: fax: [address] [address] Phone: tel: Referral ID Status Reason Start Date Expiration Date V isits Requested Visits Authorized [id number] Authorized 09/21/2024 09/21/2025 1 1 Encounter Details Date Type Department Care Team (Latest Contact Info) Description 11/20/2024 9:38 AM EST - 11/20/2024 11:59 PM EST Hospital Encounter [facility] CT Scan [address] [place] [address] Metastatic primary lung cancer, left (CMS/HCC) Discharge Disposition: Home or Self Care Social History Tobacco Use Types Packs/Day Years Used Date Smoking Tobacco: Former Cigarettes 1 32.2 0 09/27/1987 - 12/27/2019 Smokeless Tobacco: Never Alcohol Use Standard Drinks/Week Comments No 0 (1 standard drink = 0.6 oz pur e alcohol) Sex and Gender Information Value Date Recorded Sex Assigned at Male 02/05/2023 11:03 PM EDT Legal Sex Male 10:44 AM EST Gender Identity Not on file Sexual Orientation Not on file documented as of this encounter Medications at Time of Discharge albuterol HFA (Proventil HFA) 90 mcg/actuation inhaler Inhale into the lungs. albuterol sulfate 90 mcg/actuation aerosol powdr breath activated Inhale into the lungs. 11/04/2020 amiodarone (PACERONE) 200 mg tablet Take 1 tablet (200 mg total) by mouth daily. 07/13/2023 amLODIPine (NORVASC) 5 mg tablet Take 1 tablet (5 mg total) by mouth 1 (one) time each day. 01/08/2020 aspirin 81 mg EC tablet TAKE 1 TABLET BY MOUTH EVERY DAY 90 tablet 3 09/01/2024 atorvastatin (LIPITOR) 40 mg tablet Take 1 tablet (40 mg total) by mouth 1 (one) time each day. atorvastatin (LIPITOR) 80 mg tablet Take 1 tablet (80 mg total) by mouth 1 (one) time each day. calcium acetate,phosphat bind, (PHOSLO) 667 mg capsule TAKE 2 CAPSULES BY MOUTH 3 TIMES A DAY cinacalcet (SENSIPAR) 30 mg tablet Take 1 tablet (30 mg total) by mouth daily. clopidogreL (PLAVIX) 75 mg tablet Take 1 tablet (75 mg total) by mouth 1 (one) time each day. 07/13/2023 cyanocobalamin (VITAMIN B-12) 1,000 mcg tablet 1,000 mcg, By Mouth, Daily, # 30 tablet, Refills 2, Tot. Refills 2, Maintenance, 06/18/23 15:24:00 EDT, Route to Pharmacy Electronically, [facility], Partial fill upon patient request if the prescription is for a schedule II opioid drug.... 06/18/2023 ergocalciferol (VITAMIN D-2) 1,250 mcg (50,000 unit) capsule Take 1 capsule (50,000 Units total) by mouth once a week. HYDROcodone-aceta minophen (NORCO) 5-325 mg per tablet Take 1 tablet by mouth Every 4 hours as needed. 07/18/2021 ipratropium-albut Kerry (DUONEB) 0.5-2.5 mg/3 mL nebulizer solution Inhale 3 mL into the lungs. 11/04/2020 isosorbide dinitrate (ISORDIL) 30 mg tablet Take 3 tablets (90 mg total) by mouth 4 (four) times a day. isosorbide mononitrate (IMDUR) 60 mg 24 hr tablet Take 1 tablet (60 mg total) by mouth daily. 06/28/2023 lamiVUDine (EPIVIR) 100 mg tablet See Instructions, TOME 1/2 TABLETA POR VIA ORAL A DIARIO, # 45 tablet, 1 Refills, Maintenance, 02/22/24 12:21:00 EDT, [facility]/pharmacy #[id number], 165, cm, 01/28/24 12:16:00 EDT, Height, 77.5, kg, 01/24/24 8:16:00 EDT, Dry Weight 02/22/2018 lidocaine-priloca ine (EMLA) 2.5-2.5 % cream APPLY TO AFFECTED AREA ONE HOUR PRIOR TO PROCEDURE 07/28/2023 LORazepam (ATIVAN) 0.5 mg tablet Take 1 tablet (0.5 mg total) by mouth every 6 hours as needed. megestroL (MEGACE) 400 mg/10 mL (40 mg/mL) suspension TAKE 20 ML (800 MG TOTAL) BY MOUTH DAILY. 04/26/2023 metoprolol succinate (TOPROL-XL) 50 mg 24 hr tabletIndications :Chronic obstructive pulmonary disease, unspecified (CMS/HCC) TAKE 1 TABLET BY MOUTH EVERY DAY 90 tablet 1 10/20/2024 midodrine (PROAMATINE) 5 mg tablet TAKE 2 TABS PRE DIALYSIS ON WED,,SAT AND 1 TAB MID DIALYSIS WED,,SAT nicotine (NICODERM CQ) 14 mg/[address] 1 patch on the skin 1 (one) time each day at the same time. nitroglycerin (NITROSTAT) 0.[address] 1 TABLET UNDER TONGUE EVERY 5 MIN NEEDED FOR CHEST PAIN, MAX OF 3 DOSES/15 MIN CALL 911/SEEK MEDICAL ATTENTION IF PAIN PERSISTS oxyCODONE (ROXICODONE) 5 mg immediate release tablet 08/09/2023 prasugreL (EFFIENT) 10 mg tablet Take 1 tablet (10 mg total) by mouth 1 (one) time each day. ranolazine (RANEXA) 500 mg 12 hr tablet Take 1 tablet (500 mg total) by mouth. 06/18/2023 Selzentry 150 mg tablet Take 1 tablet (150 mg total) by mouth 2 (two) times a day. for 30 days temazepam (RESTORIL) 15 mg capsule 08/05/2023 tenofovir disoproxil fumarate (VIREAD) 300 mg tablet TOME BREEZY TABLETA POR VIA ORAL SEMANALMENTE ticagrelor (BRILINTA) 90 mg tablet Take 1 tablet (90 mg total) by mouth 2 (two) times a day. traZODone (DESYREL) 50 mg tablet TAKE 2 TABLETS (100 MG TOTAL) BY MOUTH EVERY NIGHT valsartan (DIOVAN) 40 mg tablet Take 1 tablet (40 mg total) by mouth 1 (one) time each day. zolpidem (AMBIEN) 5 mg tablet Take 1 tablet (5 mg total) by mouth every night at bedtime as needed for sleep. documented as of this encounter Discharge Disposition Disposition Code Departure Means Destination Home or Self Care documented in this encounter Plan of Treatment Upcoming Encounters Date Type Department Care Team (Late st Contact Info) Description 11/29/2024 10:30 AM EST Office Visit [facility] Hematology Oncology [address] [place] [address] Reyes Good MD [address] [place] [phone] 04/06/2025 1:15 PM EDT Office Visit Pulmonolgy - [place] [address] [phone] Wayne Winters MD [address] [address] Pending Results Name Type Priority Associated Diagnoses Date /Time CT Chest wo Contrast Imaging Routine Metastatic primary lung cancer, left (CMS/HCC) 11/20/2024 10:05 AM EST Scheduled Orders Name Type Priority Associated Diagnoses Orde r Schedule CT Chest wo Contrast Imaging Routine Metastatic primary lung cancer, left (CMS/HCC) Once for 1 Occurrences starting 11/20/2024 until 11/20/2024 documented as of this encounter Visit Diagnoses Diagnosis Metastatic primary lung cancer, left (CMS/HCC) documented in this encounter Care Teams Industrial Twisting Machine Operator Relationship Specialty Start Date End Date Bernardo Dorantes MD [address] [place] [address] PCP - General 08/02/23 documented as of this encounter
--- OUTSIDE RECORDS SUMMARY | 2024-11-22 11:52 | XMS_ITS | Encounter Summary ---
Author Organization [facility] Address [address] [place] [address] Care Team Providers Care Recoater Name Role Phone Deidra Sneed DO Unavailable Unavailable Paulo Meraz MD Unavailable Rasta Syed MD Primary Care Provider [phone] Michelle Calderón MD Primary Care Provider Unavailable Rasta Syed MD Primary Care Provider [phone] Jose Marcelo Unavailable Bernardo Dorantes MD Primary Care Provider Kelin Reeves NP Unavailable [phone] Encounter Details Date Type Department Care Team Description 07/06/2022 SCAN Medical Records [address] [place] [address] Abstract, Provider Social History Tobacco Use Types [...] suspected to have Coronavirus/COVID-19? No / Unsure 06/15/2022 10:00 AM EDT documented as of this encounter Plan of Treatment Not on file documented as of this encounter Procedures Procedure Name Priority Date/Time Associated Diagnosis Comments OUTSIDE LAB Routine 07/06/2022 documented in this encounter Results * OUTSIDE LAB (07/06/2022) Provider Default LAB documented in this encounter Visit Diagnoses Not on filedocumented in this encounter Care Teams Recoater Relationship Specialty Start Date End Date Rasta Syed MD [address] [place] [address] PCP - General Internal Medicine 10/21/21 07/15/22 Demetria-Michelle Nova MD [address] [place] [address] PCP - General Internal Medicine 07/16/22 07/19/22 Rasta Syed MD [address] [place] [address] PCP - General Internal Medicine 07/20/22 08/01/23 Bernardo Dorantes MD [address] [place] [address] PCP - General Internal Medicine 08/02/23 Deidra Sneed, DO Internal Medicine 12/19/15 07/19/22 Paulo Meraz MD Recording Studio Intern Cardiovascular Disease 02/17/21 Jose Marcelo PA [address] [place] [address] [phone] Specialist Cardiology 09/08/22 Kelin Reeves NP [address] [place] [address] Cardiology 08/18/23 documented as of this encounter
--- OUTSIDE RECORDS SUMMARY | 2024-11-22 11:52 | XMS_ITS | Encounter Summary ---
Author Organization [facility] Address [address] [place] [address] Care Team Providers Care Inspector Firearms Name Role Phone Deidra Sneed DO Unavailable Unavailable Paulo Meraz MD Unavailable Rasta Syed MD Primary Care Provider Michelle Calderón MD Primary Care Provider Unavailable Rasta Syed MD Primary Care Provider [phone] Jose Marcelo Unavailable Bernardo Dorantes MD Primary Care Provider Kelin Reeves NP Unavailable [phone] Encounter Details Date Type Department Care Team Description 05/29/2022 Hospital Medical Records [address] [place] [address] Social History Tobacco Use Types Packs/Day Years [...] suspected to have Coronavirus/COVID-19? No / Unsure 05/06/2022 1:23 PM EDT documented as of this encounter Plan of Treatment Not on file documented as of this encounter Visit Diagnoses Not on filedocumented in this encounter Care Teams Inspector Firearms Relationship Specialty Start Date End Date Rasta Syed MD [address] [place] [address] PCP - General Internal Medicine 10/21/21 07/15/22 Michelle Calderón MD [address] [place] [address] PCP - General Internal Medicine 07/16/22 07/19/22 Rasta Syed MD [address] [place] [address] PCP - General Internal Medicine 07/20/22 08/01/23 Bernardo Dorantes MD [address] [place] [address] PCP - General Internal Medicine 08/02/23 Deidra Sneed, DO Internal Medicine 12/19/15 07/19/22 Paulo Meraz MD Vb Net Programmer Cardiovascular Disease 02/17/21 Jose Marcelo PA [address] [place] [address] Specialist Cardiology 09/08/22 Kelin Reeves NP [address] [place] [address] Cardiology 08/18/23 documented as of this encounter
--- OUTSIDE RECORDS SUMMARY | 2024-11-22 11:52 | XMS_ITS | Encounter Summary ---
Author Organization [facility] Address [address] [place] [address] Care Team Providers Care Patient Care Coordinator Name Role Phone Paulo Meraz MD Unavailable Rasta Syed MD Primary Care Provider [phone] Jose Marcelo Unavailable Bernardo Dorantes MD Primary Care Provider Kelin Reeves NP Unavailable Reason for Visit * Reason Onset Date Comments Faxed Order 07/28/2023 [facility] order # [id number] Encounter Details Date Type Department Care Team Description 07/28/2023 Telephone Adult Medicine [address] [phone] Rasta Syed MD [address] [place] [address] [phone] Faxed Order ([facility] order # [id number]) Social History Tobacco Use Types Packs/Day Years [...] encounter Miscellaneous Notes * Telephone Encounter - Kaylene Hernandez Kate - 07/28/2023 12:[address] [facility] order # [id number] documented in this encounter Plan of Treatment Not on file documented as of this encounter Visit Diagnoses Not on filedocumented in this encounter Care Teams Patient Care Coordinator Relationship Specialty Start Date End Date Rasta Syed MD [address] [place] [address] PCP - General Internal Medicine 07/20/22 08/01/23 Bernardo Dorantes MD [address] [place] [address] PCP - General Internal Medicine 08/02/23 Paulo Meraz MD Oil Rigger Cardiovascular Disease 02/17/21 Jose Marcelo PA [address] [place] [address] Specialist Cardiology 09/08/22 Kelin Reeves NP [address] [place] [address] [phone] Cardiology 08/18/23 documented as of this encounter
--- OUTSIDE RECORDS SUMMARY | 2024-11-22 11:52 | XMS_ITS | Encounter Summary ---
Author Organization [facility] Address [address] [place] [address] Care Team Providers Care Financial Analyst Accountant Name Role Phone Deidra Sneed DO Unavailable Unavailable Paulo Meraz MD Unavailable Rasta Syed MD Primary Care Provider [phone] Michelle Calderón MD Primary Care Provider Unavailable Rasta Syed MD Primary Care Provider [phone] Jose Marcelo Unavailable Bernardo Dorantes MD Primary Care Provider Kelin Reeves NP Unavailable [phone] Encounter Details Date Type Department Care Team Description 03/16/2022 SCAN Medical Records [address] [place] [address] Abstract, Provider Social History Tobacco Use Types [...] suspected to have Coronavirus/COVID-19? No / Unsure 03/16/2022 12:54 PM EDT documented as of this encounter Plan of Treatment Not on file documented as of this encounter Procedures Procedure Name Priority Date/Time Associated Diagnosis Comments OUTSIDE LAB Routine 03/16/2022 documented in this encounter Results * OUTSIDE LAB (03/16/2022) Provider Default LAB documented in this encounter Visit Diagnoses Not on filedocumented in this encounter Care Teams Financial Analyst Accountant Relationship Specialty Start Date End Date Rasta Syed MD [address] [place] [address] PCP - General Internal Medicine 10/21/21 07/15/22 Michelle Calderón MD [address] [place] [address] PCP - General Internal Medicine 07/16/22 07/19/22 Rasta Syed MD [address] [place] [address] PCP - General Internal Medicine 07/20/22 08/01/23 Bernarod Dorantes MD [address] [place] [address] PCP - General Internal Medicine 08/02/23 Deidra Sneed, DO Internal Medicine 12/19/15 07/19/22 Paulo Meraz MD Fishing Manager Cardiovascular Disease 02/17/21 Jose Marcelo PA [address] [place] [address] Specialist Cardiology 09/08/22 Kelin Reeves NP [address] [place] [address] Cardiology 08/18/23 documented as of this encounter
--- OUTSIDE RECORDS SUMMARY | 2024-11-22 11:52 | XMS_ITS | Encounter Summary ---
Author Organization [facility] Address [address] [place] [address] Care Team Providers Care Golf Club Head Inspector Name Role Phone Paulo Meraz MD Unavailable Rasta Syed MD Primary Care Provider [phone] Jose Marcelo Unavailable Bernardo Dorantes MD Primary Care Provider Kelin Reeves NP Unavailable [phone] Encounter Details Date Type Department Care Team Description 10/23/2022 SCAN Medical Records [address] [place] [address] Abstract, Provider Social History Tobacco Use Types [...] Name Priority Date/Time Associated Diagnosis Comments OUTSIDE CT Routine 10/23/2022 documented in this encounter Results * OUTSIDE CT (10/23/2022) Provider Abstract RADIOLOGY documented in this encounter Visit Diagnoses Not on filedocumented in this encounter Care Teams Golf Club Head Inspector Relationship Specialty Start Date End Date Rasta Syed MD [address] [place] [address] PCP - General Internal Medicine 07/20/22 08/01/23 Bernardo Dorantes MD [address] [place] [address] PCP - General Internal Medicine 08/02/23 Paulo Meraz MD Jet Inspector Cardiovascular Disease 02/17/21 Jose Marcelo PA [address] [place] [address] [phone] Specialist Cardiology 09/08/22 Kelni Reeves NP [address] [place] [address] Cardiology 08/18/23 documented as of this encounter
--- OUTSIDE RECORDS SUMMARY | 2024-11-22 11:52 | XMS_ITS | Encounter Summary ---
Author Organization [facility] Address [address] [place] [address] Care Team Providers Care Engineering Operations Leader Name Role Phone Deidra Sneed DO Primary Care Pro vider Unavailable Deidra Sneed DO Unavailable Unavailable Hill Felton MD Primary Care Provider [phone] Deidra Sneed DO Primary Care Pro vider Unavailable Paulo Meraz MD Unavailable Danish Gore DO Primary Care Provider Sherry vailable Vita Hale PA-C Primary Care Provider U Rasta Burciaga MD Primary Care Provider [phone] Michelle Calderón MD Primary Care Provider Unavailable Rasta Syed MD Primary Care Provider [phone] Jose Marcelo Unavailable Bernardo Dorantes MD Primary Care Provider Kelin Reeves NP Unavailable [phone] Reason for Visit * Reason Onset Date Comments Hat Copyist Feedback 01/13/2018 genetics Encounter Details Date Type Department Care Team Description 01/13/2018 Telephone Adult Medicine [address] [phone] Deidra Sneed DO Cro Feedback (genetics) Social History Tobacco Use Types Packs/Day Years [...] encounter Miscellaneous Notes * Telephone Encounter - Mansi Gregoria - 01/13/2018 10:39 AM EDT Deidra Son We received a call from [facility], Dr. Quarles's office stating you had called theiroffice referring the patient to their office however there isnt a referral in the system for genetics or anything mentioned in the notes. If yout wish to refer patient to genetics, please pend an order and we will set up the patient Thank you, Mansi Referrals Coordinator [facility] Referrals Department documented in this encounter Plan of Treatment Not on file documented as of this encounter Visit Diagnoses Not on filedocumented in this encounter Care Teams Engineering Operations Leader Relationship Specialty Start Date End Date Deidra Sneed DO PCP - General 12/19/15 02/02/21 Hill Felton MD [address] [place], [place] PCP - General Internal Medicine 02/03/21 02/04/21 Deidra Sneed DO PCP - General Internal Medicine 02/05/21 04/22/21 Danish Gore DO [address], [place] PCP - General Internal Medicine 04/23/21 06/12/21 Vita Hale PA-C [address], [place] PCP - General Internal Medicine 06/13/21 10/20/21 Rasta Syed MD [address] [place] [address] PCP - General Internal Medicine 10/21/21 07/15/22 Michelle Calderón MD [address] [place] [address] PCP - General Internal Medicine 07/16/22 07/19/22 Rasta Syed MD [address] [place] [address] PCP - General Internal Medicine 07/20/22 08/01/23 Bernardo Dorantes MD [address] [place] [address] PCP - General Internal Medicine 08/02/23 Deidra Sneed, DO Internal Medicine 12/19/15 07/19/22 Paulo Meraz MD [address] [place] [address] Brazer Production Line Cardiovascular Disease 02/17/21 Jose Marcelo PA [address] [place] [address] Specialist Cardiology 09/08/22 Kelin Reeves NP [address] [place] [address] Cardiology 08/18/23 documented as of this encounter
--- OUTSIDE RECORDS SUMMARY | 2024-11-22 11:52 | XMS_ITS | Encounter Summary ---
Author Organization [facility] Address [address] [place] [address] Care Team Providers Care Supervisor Electrolytic Tinning Name Role Phone Deidra Sneed DO Unavailable Unavailable Paulo Meraz MD Unavailable Rasta Syed MD Primary Care Provider [phone] Michelle Calderón MD Primary Care Provider Unavailable Rasta Syed MD Primary Care Provider [phone] Jose Marcelo Unavailable Bernardo Dorantes MD Primary Care Provider Kelin Reeves NP Unavailable Reason for Visit * Reason Comments E-prescribe Rx Request Encounter Details Date Type Department Care Team Description 06/03/2022 Refill Pulmonology - [place] [address] [facility] [address] [place] [phone] Wayne Winters MD [address] [place] [address] E-prescribe Rx Request Social History [...] suspected to have Coronavirus/COVID-19? No / Unsure 06/03/2022 10:08 AM EDT documented as of this encounter Miscellaneous Notes * Telephone Encounter - Jumana Puri - 06/03/2022 2:15 PM EDT Patient would like script to be: E-PRESCRIBED/FAXED TO PHARMACY WHEN WAS THE PATIENT'S LAST APPOINTMENT IN ADULT MEDICINE? 06/19/21 WHEN WAS THE LAST TIME THE PATIENT SAW THEIR PCP? Same as above Does patient have an upcoming appointment? Yes 08/04/22 (THE MEDICATION REQUESTED IS ON THE MED LIST ABOVE) All of the medications requested were on the CURRENT MEDS list Did you check the Pharmacy information above?: YES Patient wants: 30 -day supply Is this a mail order prescription request ? NO If the refill is from a FAXED refill request what is the RX # listed on the fax? N/A Patients current insurance carrier is: Payor: [facility] FFS / Plan: [facility] / Product Type: MEDICAID RISK documented in this encounter Plan of Treatment Not on file documented as of this encounter Visit Diagnoses Not on filedocumented in this encounter Care Teams Supervisor Electrolytic Tinning Relationship Specialty Start Date End Date Rasta Syed MD [address] [place], [place] [phone] PCP - General Internal Medicine 10/21/21 07/15/22 Demetria-Michelle Nova MD [address] [place] [address] PCP - General Internal Medicine 07/16/22 07/19/22 Rasta Syed MD [address] [place], [place] [phone] PCP - General Internal Medicine 07/20/22 08/01/23 Bernardo Dorantes MD [address] [place] [address] PCP - General Internal Medicine 08/02/23 Deidra Sneed, DO Internal Medicine 12/19/15 07/19/22 Paulo Meraz MD Treatment Counselor Cardiovascular Disease 02/17/21 Jose Marcelo PA [address] [place] [address] Specialist Cardiology 09/08/22 Kelin Reeves NP [address] [place], [place] [phone] Cardiology 08/18/23 documented as of this encounter
--- OUTSIDE RECORDS SUMMARY | 2024-11-22 11:52 | XMS_ITS | Encounter Summary ---
Author Organization [facility] Address [address] [place] [address] Care Team Providers Care Manager Money Name Role Phone Deidra Sneed DO Primary Care Pro vider Unavailable Deidra Sneed DO Unavailable Unavailable Hill Felton MD Primary Care Provider [phone] Deidra Sneed DO Primary Care Pro vider Unavailable Paulo Meraz MD Unavailable Danish Gore DO Primary Care Provider Sherry vailable Vita Hale PA-C Primary Care Provider U Rasta Burciaga MD Primary Care Provider Michelle Calderón MD Primary Care Provider Unavailable Rasta Syed MD Primary Care Provider [phone] Jose Marcelo Unavailable Bernardo Dorantes MD Primary Care Provider Kelin Reeves NP Unavailable [phone] Reason for Visit * Reason Onset Date Comments er follow up 08/16/2017 Encounter Details Date Type Department Care Team Description 08/16/2017 Telephone Adult Medicine [address] [address] Deidra Sneed DO er follow up Social History Tobacco Use Types Packs/Day Years [...] encounter Miscellaneous Notes * Telephone Encounter - Sharon Arnold - 08/16/2017 11:21 AM EST ER follow-up appointment booked YES 08/17/17 @10:15 am If ER follow up, can be booked with mid-level or MD. If hospital admission follow up MUST be booked with a physician Appointment time: 10:15am Provider visit is scheduled with: Isabelle Miranda PA-C Hospital patient was treated at: [facility] Date of visit: 08/13/17 Was this only an ER visit or was the patient admitted to the hospital? ER visit onlyER visit only If patient was admitted what was the date of discharge? Reason/diagnosis for visit or stay: pneumonia Was visit or stay related to an injury? NO If yes, what was the date of injury (DOI)? N/A If yes, was the injury due to N/A Tests performed: Lab: YES X-ray: YES EKG: YES Other tests. If yes, what?; N/A documented in this encounter Plan of Treatment Not on file documented as of this encounter Visit Diagnoses Not on filedocumented in this encounter Care Teams Manager Money Relationship Specialty Start Date End Date Deidra Sneed DO PCP - General 12/19/15 02/02/21 Hill Felton, [address] [place] [address] PCP - General Internal Medicine 02/03/21 02/04/21 Deidra Sneed DO PCP - General Internal Medicine 02/05/21 04/22/21 Danish Gore DO [address] [place] [address] PCP - General Internal Medicine 04/23/21 06/12/21 Vita Hale PA-C [address] [place], [place] PCP - General Internal Medicine 06/13/21 10/20/21 Rasta Syed MD [address] [place] [address] PCP - General Internal Medicine 10/21/21 07/15/22 Demetria-Michelle Nova MD [address] [place] [address] PCP - General Internal Medicine 07/16/22 07/19/22 Rasta Syed MD [address] [place] [address] PCP - General Internal Medicine 07/20/22 08/01/23 Bernardo Dorantes MD [address] [place] [address] PCP - General Internal Medicine 08/02/23 Deidra Sneed DO Internal Medicine 12/19/15 07/19/22 Paulo Meraz MD [address] [place] [address] Equipment Service Associate Cardiovascular Disease 02/17/21 Jose Marcelo PA [address] [place] [address] Specialist Cardiology 09/08/22 Kelin Reeves NP [address] [place] [address] Cardiology 08/18/23 documented as of this encounter
--- OUTSIDE RECORDS SUMMARY | 2024-11-22 11:52 | XMS_ITS | Encounter Summary ---
Author Organization [facility] Address [address] [place] [address] Care Team Providers Care Terra Cotta Setter Name Role Phone Deidra Sneed DO Primary Care Pro vider Unavailable Deidra Sneed DO Unavailable Unavailable Hill Felton MD Primary Care Provider [phone] Deidra Sneed DO Primary Care Pro vider Unavailable Paulo Meraz MD Unavailable Danish Gore DO Primary Care Provider Sherry vailable Vita Hale PA-C Primary Care Provider U Rasta Burciaga MD Primary Care Provider [phone] Michelle Calderón MD Primary Care Provider Unavailable Rasta Syed MD Primary Care Provider [phone] Jose Marcelo Unavailable Bernardo Dorantes MD Primary Care Provider Kelin Reeves NP Unavailable [phone] Encounter Details Date Type Department Care Team Description 01/17/2018 Addiction Medicine Physician Report Medical Records [address] [place] [address] Saundra Mariee MD Social History Tobacco Use [...] on filedocumented in this encounter Care Teams Terra Cotta Setter Relationship Specialty Start Date End Date Deidra Sneed DO PCP - General 12/19/15 02/02/21 Hill Felton MD [address] [place] [address] PCP - General Internal Medicine 02/03/21 02/04/21 Deidra Sneed DO PCP - General Internal Medicine 02/05/21 04/22/21 Danish Gore DO [address] [place], [place] PCP - General Internal Medicine 04/23/21 06/12/21 Vita Hale PA-C [address] [place] [address] PCP - General Internal Medicine 06/13/21 10/20/21 Rasta Syed MD [address] [place] [address] PCP - General Internal Medicine 10/21/21 07/15/22 Michelle Calderón MD [address] [place] [address] PCP - General Internal Medicine 07/16/22 07/19/22 Rasta Syed MD [address] [place] [address] PCP - General Internal Medicine 07/20/22 08/01/23 Bernardo Dorantes MD [address] [place] [address] PCP - General Internal Medicine 08/02/23 Deidra Sneed DO Internal Medicine 12/19/15 07/19/22 Paulo Meraz MD [address] [place] [address] Joint Setter Cardiovascular Disease 02/17/21 Jose Marcelo PA [address] [place] [address] Specialist Cardiology 09/08/22 Kelin Reeves NP [address] [place] [address] Cardiology 08/18/23 documented as of this encounter
--- OUTSIDE RECORDS SUMMARY | 2024-11-22 11:52 | XMS_ITS | Encounter Summary ---
Author Organization [facility] Address [address] [place] [address] Care Team Providers Care Dip Guider Stoves Name Role Phone Deidra Sneed DO Unavailable Unavailable Paulo Meraz MD Unavailable Rasta Syed MD Primary Care Provider [phone] Michelle Calderón MD Primary Care Provider Unavailable Rasta Syed MD Primary Care Provider [phone] Jose Marcelo Unavailable Bernardo Dorantes MD Primary Care Provider Kelin Reeves NP Unavailable [phone] Encounter Details Date Type Department Care Team Description 03/23/2022 [facility] Medical Records [address] [place] [address] Social History Tobacco Use Types Packs/Day Years [...] Date/Time Associated Diagnosis Comments OUTSIDE EKG Routine 03/23/2022 OUTSIDE PLAIN FILM Routine 03/23/2022 OUTSIDE EKG Routine 03/21/2022 documented in this encounter Results * OUTSIDE PLAIN FILM (03/23/2022) Provider Abstract RADIOLOGY * OUTSIDE EKG (03/23/2022) Provider Abstract CARDIOLOGY * OUTSIDE EKG (03/21/2022) Provider Abstract CARDIOLOGY documented in this encounter Visit Diagnoses Not on filedocumented in this encounter Care Teams Dip Guider Stoves Relationship Specialty Start Date End Date Rasta Syed MD [address] [place] [address] PCP - General Internal Medicine 10/21/21 07/15/22 Demetria-Michelle Nova MD [address] [place] [address] PCP - General Internal Medicine 07/16/22 07/19/22 Rasta Syed MD [address] [place] [address] PCP - General Internal Medicine 07/20/22 08/01/23 Bernardo Dorantes MD [address] [place] [address] PCP - General Internal Medicine 08/02/23 Deidra Sneed, DO Internal Medicine 12/19/15 07/19/22 Paulo Meraz MD Service Delivery Analyst Cardiovascular Disease 02/17/21 Jose Marcelo PA [address] [place] [address] Specialist Cardiology 09/08/22 Kelin Reeves NP [address] [place] [address] Cardiology 08/18/23 documented as of this encounter
--- OUTSIDE RECORDS SUMMARY | 2024-11-22 11:52 | XMS_ITS | Encounter Summary ---
Author Organization [facility] Address [address] [place] [address] Care Team Providers Care It Application Architect Name Role Phone Deidra Sneed DO Unavailable Unavailable Paulo Meraz MD Unavailable Rasta Syed MD Primary Care Provider [phone] Michelle Calderón MD Primary Care Provider Unavailable Rasta Syed MD Primary Care Provider [phone] Jose Marcelo Unavailable Bernardo Dorantes MD Primary Care Provider Kelin Reeves NP Unavailable [phone] Encounter Details Date Type Department Care Team Description 05/21/2022 Snowsport Instructor Report Medical Records [address] [place] [address] Eugene Reilly MD [address] [place] [address] [place] [address] Social History Tobacco Use Types Packs/Day Years [...] on filedocumented in this encounter Care Teams It Application Architect Relationship Specialty Start Date End Date Rasta Syed MD [address] [place] [address] PCP - General Internal Medicine 10/21/21 07/15/22 Michelle Calderón MD [address] [place] [address] PCP - General Internal Medicine 07/16/22 07/19/22 Rasta Syed MD [address] [place] [address] PCP - General Internal Medicine 07/20/22 08/01/23 Bernardo Dorantes MD [address] [place] [address] PCP - General Internal Medicine 08/02/23 Deidra Sneed, DO Internal Medicine 12/19/15 07/19/22 Paulo Meraz MD Pharmaceutical Assistant Cardiovascular Disease 02/17/21 Jose Marcelo PA [address] [place] [address] Specialist Cardiology 09/08/22 Kelin Reeves NP [address] [place] [address] Cardiology 08/18/23 documented as of this encounter
--- OUTSIDE RECORDS SUMMARY | 2024-11-22 11:52 | XMS_ITS | Encounter Summary ---
Author Organization [facility] Address [address] [place] [address] Care Team Providers Care Director Distribution Name Role Phone Paulo Meraz MD Unavailable Jose Marcelo Unavailable Bernardo Dorantes MD Primary Care Provider Kelin Reeves NP Unavailable [phone] Reason for Visit * Reason Onset Date Comments Faxed Order 08/03/2023 [facility] alth Order # [id number], [id number] Encounter Details Date Type Department Care Team Description 08/03/2023 Telephone Adult Medicine [address] [id number] Bernardo Dorantes MD [address] [place] [address] [phone] Faxed Order ([facility] Order # [id number], [id number]) Social History Tobacco Use Types Packs/Day Years [...] Miscellaneous Notes * Telephone Encounter - Kaylene Love - 08/03/2023 11:13 AM EST [facility] Order # [id number], [id number] documented in this encounter Plan of Treatment Not on file documented as of this encounter Visit Diagnoses Not on filedocumented in this encounter Care Teams Director Distribution Relationship Specialty Start Date End Date Bernardo Dorantes MD [address] [place] [address] PCP - General Internal Medicine 08/02/23 Paulo Meraz MD Tube Bender Cardiovascular Disease 02/17/21 Jose Marcleo PA Specialist Cardiology 09/08/22 Kelin Reeves NP [address] [place] [address] Cardiology 08/18/23 documented as of this encounter
--- OUTSIDE RECORDS SUMMARY | 2024-11-22 11:52 | XMS_ITS | Encounter Summary ---
Author Organization [facility] Address [address] [place] [address] Care Team Providers Care Inseam Trimming Machine Operator Name Role Phone Deidra Sneed DO Primary Care Pro vider Unavailable Deidra Sneed DO Unavailable Unavailable Hill Felton MD Primary Care Provider [phone] Deidra Sneed DO Primary Care Pro vider Unavailable Paulo Meraz MD Unavailable Danish Gore DO Primary Care Provider Sherry vailable Vita Hale PA-C Primary Care Provider U Rasta Burciaga MD Primary Care Provider [phone] Michelle Calderón MD Primary Care Provider Unavailable Rasta Syed MD Primary Care Provider [phone] Jose Marcelo Unavailable Bernardo Dorantes MD Primary Care Provider Kelin Reeves NP Unavailable [phone] Encounter Details Date Type Department Care Team Description 07/25/2018 Television Anchor Report Medical Records [address] [place] [address] Saundra Mariee MD Social History Tobacco Use [...] on filedocumented in this encounter Care Teams Inseam Trimming Machine Operator Relationship Specialty Start Date End Date Deidra Sneed DO PCP - General 12/19/15 02/02/21 Hill Felton MD [address] [place] [address] PCP - General Internal Medicine 02/03/21 02/04/21 Deidra Sneed DO PCP - General Internal Medicine 02/05/21 04/22/21 Danish Gore DO [address] [place], [place] PCP - General Internal Medicine 04/23/21 06/12/21 Vita Hale PA-C [address] [place] [address] PCP - General Internal Medicine 06/13/21 10/20/21 Rasta Syed MD [address] [place] [address] PCP - General Internal Medicine 10/21/21 07/15/22 Michelle Calderón MD [address] [place] [address] PCP - General Internal Medicine 07/16/22 07/19/22 Rasta Syed MD [address] [place] [address] 11784 PCP - General Internal Medicine 07/20/22 08/01/23 Bernardo Dorantes MD [address] [place] [address] PCP - General Internal Medicine 08/02/23 Deidra Sneed DO Internal Medicine 12/19/15 07/19/22 Paulo Meraz MD [address] [place] [address] Sewing Machine Operator Floorperson Cardiovascular Disease 02/17/21 Jose Marcelo PA [address] [place] [address] Specialist Cardiology 09/08/22 Kelin Reeves NP [address] [place] [address] Cardiology 08/18/23 documented as of this encounter
--- OUTSIDE RECORDS SUMMARY | 2024-11-22 11:52 | XMS_ITS | Encounter Summary ---
Author Organization [facility] Address [address] [place] [address] Care Team Providers Care Desk Representative Name Role Phone Paulo Meraz MD Unavailable Rasta Syed MD Primary Care Provider [phone] Jose Marcelo Unavailable Bernardo Dorantes MD Primary Care Provider Kelin Reeves NP Unavailable [phone] Encounter Details Date Type Department Care Team Description 08/13/2022 Hospital Medical Records [address] [place] [address] Social History Tobacco Use Types Packs/Day Years [...] suspected to have Coronavirus/COVID-19? No / Unsure 08/04/2022 1:09 PM EST documented as of this encounter Plan of Treatment Not on file documented as of this encounter Visit Diagnoses Not on filedocumented in this encounter Care Teams Desk Representative Relationship Specialty Start Date End Date Rasta Syed MD [address] [place] [address] [phone] PCP - General Internal Medicine 07/20/22 08/01/23 Bernardo Dorantes MD [address] [place] [address] PCP - General Internal Medicine 08/02/23 Paulo Meraz MD Fitness Sales Associate Cardiovascular Disease 02/17/21 Jose Marcelo PA [address] [place] [address] Specialist Cardiology 09/08/22 Kelin Reeves NP [address] [place] [address] Cardiology 08/18/23 documented as of this encounter
--- OUTSIDE RECORDS SUMMARY | 2024-11-22 11:52 | XMS_ITS | Encounter Summary ---
Author Organization [facility] Address [address] [place] [address] Care Team Providers Care Christian Science Nurse Name Role Phone Deidra Sneed DO Unavailable Unavailable Paulo Meraz MD Unavailable Rasta Syed MD Primary Care Provider [phone] Michelle Calderón MD Primary Care Provider Unavailable Rasta Syed MD Primary Care Provider [phone] Jose Marcelo Unavailable Bernardo Dorantes MD Primary Care Provider Kelin Reeves NP Unavailable [phone] Encounter Details Date Type Department Care Team Description 05/23/2022 [facility] Medical Records [address] [place] [address] Social History Tobacco Use Types Packs/Day Years [...] on filedocumented in this encounter Care Teams Christian Science Nurse Relationship Specialty Start Date End Date Rasta Syed MD [address] [place] [address] PCP - General Internal Medicine 10/21/21 07/15/22 Michelle Calderón MD [address] [place] [address] PCP - General Internal Medicine 07/16/22 07/19/22 Rasta Syed MD [address] [place] [address]27 PCP - General Internal Medicine 07/20/22 08/01/23 Bernardo Dorantes MD [address] [place] [address] PCP - General Internal Medicine 08/02/23 Deidra Sneed, DO Internal Medicine 12/19/15 07/19/22 Paulo Meraz MD Scheme Technician Cardiovascular Disease 02/17/21 Jose Marcelo PA [address] [place] [address] Specialist Cardiology 09/08/22 Kelin Reeves NP [address] [place] [address] Cardiology 08/18/23 documented as of this encounter
--- OUTSIDE RECORDS SUMMARY | 2024-11-22 11:52 | XMS_ITS | Encounter Summary ---
Author Organization [facility] Address [address] [place] [address] Care Team Providers Care Pearl Hand Name Role Phone Deidra Sneed DO Unavailable Unavailable Paulo Meraz MD Unavailable Rasta Syed MD Primary Care Provider [phone] Michelle Calderón MD Primary Care Provider Unavailable Rasta Syed MD Primary Care Provider [phone] Jose Marcelo Unavailable Bernardo Dorantes MD Primary Care Provider Kelin Reeves NP Unavailable [phone] Encounter Details Date Type Department Care Team Description 06/03/2022 Home Health Certification Medical Records [address] [place] [address] [address] Social History Tobacco Use Types Packs/Day Years [...] on filedocumented in this encounter Care Teams Pearl Hand Relationship Specialty Start Date End Date Rasta Syed MD [address] [place] [address] PCP - General Internal Medicine 10/21/21 07/15/22 Michelle Calderón MD [address] [place] [address] 611[address] PCP - General Internal Medicine 07/16/22 07/19/22 Rasta Syed MD [address] [place] [address] 07918 PCP - General Internal Medicine 07/20/22 08/01/23 Bernardo Dorantes MD [address] [place] [address] PCP - General Internal Medicine 08/02/23 Deidra Sneed, DO Internal Medicine 12/19/15 07/19/22 Paulo Meraz MD Steel Erecting Pusher Cardiovascular Disease 02/17/21 Jose Marcelo PA [address] [place] [address]36 Specialist Cardiology 09/08/22 Kelin Reeves NP [address] [place] [address] Cardiology 08/18/23 documented as of this encounter
--- OUTSIDE RECORDS SUMMARY | 2024-11-22 11:52 | XMS_ITS | Encounter Summary ---
Author Organization [facility] Address [address] [place] [address] Care Team Providers Care Email Operations Manager Name Role Phone LisetpietroDeidra Lam DO Unavailable Unavailable Paulo Meraz MD Unavailable Rasta Syed MD Primary Care Provider [phone] Michelle Calderón MD Primary Care Provider Unavailable Rasta Syed MD Primary Care Provider [phone] Jose Marcelo Unavailable Bernardo Dorantes MD Primary Care Provider Kelin Reeves NP Unavailable [phone] Encounter Details Date Type Department Care Team Description 01/26/2022 Hospital Medical Records [address] [place] [address] Social History Tobacco Use Types Packs/Day Years [...] on filedocumented in this encounter Care Teams Email Operations Manager Relationship Specialty Start Date End Date Rasta Syed MD [address] [place] [address] [phone] PCP - General Internal Medicine 10/21/21 07/15/22 Michelle Calderón MD [address] [place] [address] PCP - General Internal Medicine 07/16/22 07/19/22 Rasta Syed MD [address] [place] [address]71 PCP - General Internal Medicine 07/20/22 08/01/23 Bernardo Dorantes MD [address] [place] [address] PCP - General Internal Medicine 08/02/23 Deidra Sneed, DO Internal Medicine 12/19/15 07/19/22 Paulo Meraz MD Insurance Customer Service Specialist Cardiovascular Disease 02/17/21 Jose Marcelo PA [address] [place] [address] [phone] Specialist Cardiology 09/08/22 Kelin Reeves NP [address] [place], [place] [phone] Cardiology 08/18/23 documented as of this encounter
--- OUTSIDE RECORDS SUMMARY | 2024-11-22 11:52 | XMS_ITS | Encounter Summary ---
Author Organization [facility] Address [address] [place] [address] Care Team Providers Care Table Inspector Name Role Phone Paulo Meraz MD Unavailable Jose Marcelo Unavailable Bernardo Dorantes MD Primary Care Provider Kelin Reeves NP Unavailable [phone] Encounter Details Date Type Department Care Team Description 08/08/2023 Hospital Medical Records [address] [place] [address] Ernie Jon MD [address] [place] [address] [address] [place], [place] [phone] Social History Tobacco Use Types Packs/Day Years [...] on filedocumented in this encounter Care Teams Table Inspector Relationship Specialty Start Date End Date Bernardo Dorantes MD [address] [place] [address] PCP - General Internal Medicine 08/02/23 Paulo Meraz MD Bagging Salvager Cardiovascular Disease 02/17/21 Jose Marcelo PA Specialist Cardiology 09/08/22 Kelin Reeves NP [address] [place] [address] Cardiology 08/18/23 documented as of this encounter
--- OUTSIDE RECORDS SUMMARY | 2024-11-22 11:52 | XMS_ITS | Encounter Summary ---
Author Organization [facility] Address [address] [place] [address] Care Team Providers Care Piece Cutter Name Role Phone Deidra Sneed DO Unavailable Unavailable Paulo Meraz MD Unavailable Rasta Syed MD Primary Care Provider Michelle Calderón MD Primary Care Provider Unavailable Rasta Syed MD Primary Care Provider [phone] Jose Marcelo Unavailable Bernardo Dorantes MD Primary Care Provider Kelin Reeves NP Unavailable [phone] Encounter Details Date Type Department Care Team Description 03/10/2022 SCAN Medical Records [address] [place] [address] Reyes Good MD Social History Tobacco Use [...] Date/Time Associated Diagnosis Comments OUTSIDE LAB Routine 03/10/2022 OUTSIDE LAB Routine 03/10/2022 documented in this encounter Results * OUTSIDE LAB (03/10/2022) Provider Abstract LAB * OUTSIDE LAB (03/10/2022) Provider Abstract LAB documented in this encounter Visit Diagnoses Not on filedocumented in this encounter Care Teams Piece Cutter Relationship Specialty Start Date End Date Rasta Syed MD [address] [place] [address] PCP - General Internal Medicine 10/21/21 07/15/22 Demetria-Michelle Nova MD [address] [place], [place] [phone] PCP - General Internal Medicine 07/16/22 07/19/22 Rasta Syed MD [address] [place] [address] PCP - General Internal Medicine 07/20/22 08/01/23 Bernardo Dorantes MD [address] [place] [address] PCP - General Internal Medicine 08/02/23 Deidra Sneed, DO Internal Medicine 12/19/15 07/19/22 Paulo Meraz MD Import/Export Administrator Cardiovascular Disease 02/17/21 Jose Marcelo PA [address] [place] [address] [phone] Specialist Cardiology 09/08/22 Kelin Reeves NP [address] [place] [address] Cardiology 08/18/23 documented as of this encounter
--- OUTSIDE RECORDS SUMMARY | 2024-11-22 11:52 | XMS_ITS | Encounter Summary ---
Author Organization [facility] Address [address] [place] [address] Care Team Providers Care Top Frame Maker Name Role Phone LisetpietroDeidra Lam DO Unavailable Unavailable Paulo Meraz MD Unavailable Rasta Syed MD Primary Care Provider [phone] Michelle Calderón MD Primary Care Provider Unavailable Rasta Syed MD Primary Care Provider [phone] Jose Marcelo Unavailable Bernardo Dorantes MD Primary Care Provider Kelin Reeves NP Unavailable Encounter Details Date Type Department Care Team Description 12/12/2021 [facility] Medical Records [address] [place] [address] Social History Tobacco Use Types Packs/Day Years [...] on filedocumented in this encounter Care Teams Top Frame Maker Relationship Specialty Start Date End Date Rasta Syed MD [address] [place] [address] [phone] PCP - General Internal Medicine 10/21/21 07/15/22 Michelle Claderón MD [address] [place] [address] PCP - General Internal Medicine 07/16/22 07/19/22 Rasta Syed MD [address] [place] [address] 59648 PCP - General Internal Medicine 07/20/22 08/01/23 Bernardo Dorantes MD [address] [place] [address] PCP - General Internal Medicine 08/02/23 Deidra Sneed, DO Internal Medicine 12/19/15 07/19/22 Paulo Meraz MD Energy Conservation Representative Cardiovascular Disease 02/17/21 Jose Marcelo PA [address] [place] [address] [phone] Specialist Cardiology 09/08/22 Kelin Reeves NP [address] [place], [place] [phone] Cardiology 08/18/23 documented as of this encounter
--- OUTSIDE RECORDS SUMMARY | 2024-11-22 11:52 | XMS_ITS | Encounter Summary ---
Author Organization [facility] Address [address] [place] [address] Care Team Providers Care Caterer Helper Name Role Phone Deidra Sneed DO Primary Care Pro vider Unavailable Deidra Sneed DO Unavailable Unavailable Hill Felton MD Primary Care Provider [phone] Deidra Sneed DO Primary Care Pro vider Unavailable Paulo Meraz MD Unavailable Danish Gore DO Primary Care Provider Sherry vailable Vita Hale PA-C Primary Care Provider U Rasta Burciaga MD Primary Care Provider [phone] Michelle Calderón MD Primary Care Provider Unavailable Rasta Syed MD Primary Care Provider [phone] Jose Marcelo Unavailable Bernardo Dorantes MD Primary Care Provider Kelin Reeves NP Unavailable [phone] Encounter Details Date Type Department Care Team Description 03/28/2018 Hospital Medical Records [address] [place] [address] Rehab., [place] Social History Tobacco Use Types [...] on filedocumented in this encounter Care Teams Caterer Helper Relationship Specialty Start Date End Date Deidra Sneed DO PCP - General 12/19/15 02/02/21 Hill Felton MD [address] [place], [place] PCP - General Internal Medicine 02/03/21 02/04/21 Deidra Sneed DO PCP - General Internal Medicine 02/05/21 04/22/21 Danish Gore DO [address] [place], [place] PCP - General Internal Medicine 04/23/21 06/12/21 Vita Hale PA-C [address] [place], [place] PCP - General Internal Medicine 06/13/21 10/20/21 Rasta Syed MD [address] [place] [address] PCP - General Internal Medicine 10/21/21 07/15/22 Michelle Calderón MD [address] [place] [address] PCP - General Internal Medicine 07/16/22 07/19/22 Rasta Syed MD [address] [place] [address] PCP - General Internal Medicine 07/20/22 08/01/23 Bernardo Dorantes MD [address] [place] [address] PCP - General Internal Medicine 08/02/23 Deidra Sneed DO Internal Medicine 12/19/15 07/19/22 Paulo Meraz MD [address] [place] [address] Plant Operations Engineer Cardiovascular Disease 02/17/21 Jose Marcelo PA [address] [place] [address] Specialist Cardiology 09/08/22 Kelin Reeves, LIMA [address] [place] [address] Cardiology 08/18/23 documented as of this encounter
--- OUTSIDE RECORDS SUMMARY | 2024-11-22 11:52 | XMS_ITS | Encounter Summary ---
Author Organization [facility] Address [address] [place] [address] Care Team Providers Care Vasc Tech Name Role Phone Deidra Sneed DO Unavailable Unavailable Paulo Meraz MD Unavailable Rasta Syed MD Primary Care Provider [phone] Michelle Calderón MD Primary Care Provider Unavailable Rasta Syed MD Primary Care Provider [phone] Jose Marcelo Unavailable Bernardo Dorantes MD Primary Care Provider Kelin Reeves NP Unavailable [phone] Encounter Details Date Type Department Care Team Description 06/08/2022 [facility] Medical Records [address] [place] [address] Social History Tobacco Use Types Packs/Day Years [...] Name Priority Date/Time Associated Diagnosis Comments OUTSIDE VASCULAR STUDY Routine 06/08/2022 documented in this encounter Results * OUTSIDE VASCULAR STUDY (06/08/2022) Provider Abstract CARDIOLOGY documented in this encounter Visit Diagnoses Not on filedocumented in this encounter Care Teams Vasc Tech Relationship Specialty Start Date End Date Rasta Syed MD [address] [place] [address] PCP - General Internal Medicine 10/21/21 07/15/22 Demetria-Michelle Nova MD [address] [place] [address] PCP - General Internal Medicine 07/16/22 07/19/22 Rasta Syed MD [address] [place] [address] PCP - General Internal Medicine 07/20/22 08/01/23 Bernardo Dorantes MD [address] [place] [address] PCP - General Internal Medicine 08/02/23 Deidra Sneed, DO Internal Medicine 12/19/15 07/19/22 Paulo Meraz MD Brick Veneer Maker Cardiovascular Disease 02/17/21 Jose Marcelo PA [address] [place] [address] [phone] Specialist Cardiology 09/08/22 Kelin Reeves NP [address] [place] [address] [phone] Cardiology 08/18/23 documented as of this encounter
--- OUTSIDE RECORDS SUMMARY | 2024-11-22 11:52 | XMS_ITS | Encounter Summary ---
Author Organization [facility] Address [address] [place] [address] Care Team Providers Care Tube Roller Name Role Phone Deidra Sneed DO Unavailable Unavailable Paulo Meraz MD Unavailable Rasta Syed MD Primary Care Provider [phone] Michelle Calderón MD Primary Care Provider Unavailable Rasta Syed MD Primary Care Provider [phone] Jose Marcelo Unavailable Bernardo Dorantes MD Primary Care Provider Kelin Reeves NP Unavailable Encounter Details Date Type Department Care Team Description 06/08/2022 [facility] Medical Records [address] [place] [address] Social History Tobacco Use Types Packs/Day Years [...] Date/Time Associated Diagnosis Comments OUTSIDE CT Routine 06/08/2022 documented in this encounter Results * OUTSIDE CT (06/08/2022) Provider Abstract RADIOLOGY documented in this encounter Visit Diagnoses Not on filedocumented in this encounter Care Teams Tube Roller Relationship Specialty Start Date End Date Rasta Syed MD [address] [place] [address] PCP - General Internal Medicine 10/21/21 07/15/22 Demetria-Michelle Nova MD [address] [place], [place] [phone] PCP - General Internal Medicine 07/16/22 07/19/22 Rasta Syed MD [address] [place] [address] PCP - General Internal Medicine 07/20/22 08/01/23 Bernardo Dorantes MD [address] [place] [address] PCP - General Internal Medicine 08/02/23 Deidra Sneed, DO Internal Medicine 12/19/15 07/19/22 Paulo Meraz MD Pull Through Hooker Cardiovascular Disease 02/17/21 Jose Marcelo PA [address] [place] [address] Specialist Cardiology 09/08/22 Kelin Reeves NP [address] [place] [address] Cardiology 08/18/23 documented as of this encounter
--- OUTSIDE RECORDS SUMMARY | 2024-11-22 11:52 | XMS_ITS | Encounter Summary ---
Author Organization [facility] [employer] [facility] Address [address] [place] [address] Care Team Providers Care Measurement Technician Name Role Phone Paulo Meraz MD Unavailable Rasta Syed MD Primary Care Provider [phone] Jose aMrcelo Unavailable Bernardo Dorantes MD Primary Care Provider Kelin Reeves NP Unavailable [phone] Encounter Details Date Type Department Care Team Description 07/28/2022 Hospital Medical Records [address] [place], [place] [id number] [place] [address] Social History Tobacco Use Types Packs/Day Years [...] suspected to have Coronavirus/COVID-19? No / Unsure 07/22/2022 10:36 AM EDT documented as of this encounter Plan of Treatment Not on file documented as of this encounter Procedures Procedure Name Priority Date/Time Associated Diagnosis Comments OUTSIDE EKG Routine 07/28/2022 OUTSIDE PLAIN FILM Routine 07/28/2022 documented in this encounter Results * OUTSIDE PLAIN FILM (07/28/2022) Provider Default RADIOLOGY * OUTSIDE EKG (07/28/2022) Provider Default CARDIOLOGY documented in this encounter Visit Diagnoses Not on filedocumented in this encounter Care Teams Measurement Technician Relationship Specialty Start Date End Date Rasta Syed MD [address] [place] [address] [phone] PCP - General Internal Medicine 07/20/22 08/01/23 Bernardo Dorantes MD [address] [place] [address] [phone] PCP - General Internal Medicine 08/02/23 Paulo Meraz MD In Tube Conversion Technician Cardiovascular Disease 02/17/21 Jose Marcelo PA [address] [place] [address] Specialist Cardiology 09/08/22 Kelin Reeves NP [address] [place] [address] Cardiology 08/18/23 documented as of this encounter
--- OUTSIDE RECORDS SUMMARY | 2024-11-22 11:52 | XMS_ITS | Encounter Summary ---
Author Organization [facility] Address [address] [place] [address] Care Team Providers Care Cryptologist Name Role Phone aPulo Meraz MD Unavailable Rasta Syed MD Primary Care Provider [phone] Jose Marcelo Unavailable Bernardo Dorantes MD Primary Care Provider Kelin Reeves NP Unavailable [phone] Encounter Details Date Type Department Care Team Description 07/31/2022 Hospital Medical Records [address] [place] [address] Social History Tobacco Use Types Packs/Day Years [...] Date/Time Associated Diagnosis Comments OUTSIDE EKG Routine 07/31/2022 OUTSIDE PLAIN FILM Routine 07/31/2022 documented in this encounter Results * OUTSIDE PLAIN FILM (07/31/2022) Provider Default RADIOLOGY * OUTSIDE EKG (07/31/2022) Provider Default CARDIOLOGY documented in this encounter Visit Diagnoses Not on filedocumented in this encounter Care Teams Cryptologist Relationship Specialty Start Date End Date Rasta Syed MD [address] [place] [address] PCP - General Internal Medicine 07/20/22 08/01/23 Bernardo Dorantes MD [address] [place] [address] PCP - General Internal Medicine 08/02/23 Paulo Meraz MD Physical Metallurgist Cardiovascular Disease 02/17/21 Jose Marcelo PA [address] [place] [address] Specialist Cardiology 09/08/22 Kelin Reeves NP [address] [place] [address] Cardiology 08/18/23 documented as of this encounter
--- OUTSIDE RECORDS SUMMARY | 2024-11-22 11:52 | XMS_ITS | Encounter Summary ---
Author Organization [facility] [employer] [facility] Address [address] [place] [address] Care Team Providers Care Grades 7 8 Tutor Name Role Phone Paulo Meraz MD Unavailable Rasta Syed MD Primary Care Provider [phone] Jose Marcelo Unavailable Bernardo Dorantes MD Primary Care Provider Kelin Reeves NP Unavailable [phone] Reason for Visit * Reason Onset Date Comments Medication 07/31/2022 Concerns Encounter Details Date Type Department Care Team Description 07/31/2022 Telephone Cardio PVC POC [address] [place] [address] Jose Marcelo PA [address] [place] [address] [phone] Medication (Concerns) Social History Tobacco Use Types Packs/Day Years [...] encounter Miscellaneous Notes * Telephone Encounter - Leann Bob C.M.A. - 07/31/2022 3:31 PM EDT Spoke with Pt, and italo sister . Reviewed recommendations * Telephone Encounter - BUD Ortiz - 07/31/2022 3:27 PM EDT Good afternoon. If he is feeling that weak with a blood pressure that low, I think he needs to go to the emergency room. I know historically he does experience low blood pressures after dialysis, butthat blood pressure is way too low. Unfortunately, we need to consider bleeding as a possible causeof his low blood pressure given the fact that he needed femoral access for his cath. Thanks. * Telephone Encounter - Leann Bob C.M.A. - 07/31/2022 2:32 PM EDT ZHANG, Pt was just d/[place] from [facility] 07[place] . Pts Plavix stopped and replaced with Prasugrel 10mg. Pts main issueat this time its Bisi bp 61/43 and feeling weak. He had heart Cath w/t LORAINE 07/29 Please, advise. Pts sister yahaira received a call [place] [facility] andshe was advised to have pt talk to spun paste machine operator and find out if pt should resume Midodrine? It was given to him at some point but pt has no more refills. Please advise. * Telephone Encounter - Bushra Simmons Dinh - 07/31/2022 1:28 PM EDT Patient requested to speak with Bud Ortiz. Patient said that he was admitted to [facility] from 07/24 -07/25/22. Patient said while at the hospital the doctors took him off of Plavix and Brilinta and started him on clopidogrel 75 MG one time per day. Patient stated since taking the medication he has been feeling very dizzy and is blood pressure has also been very low. Patient wants to speak to the pr ovide about the medication change and possibly going back to the medications he was taken off of. Patient would like a call back at [phone] -fyi PATIENT NEEDS INCOMING INSPECTOR. documented in this encounter Plan of Treatment Not on file documented as of this encounter Visit Diagnoses Not on filedocumented in this encounter Care Teams Grades 7 8 Tutor Relationship Specialty Start Date End Date Rasta Syed MD [address] [place] [address] PCP - General Internal Medicine 07/20/22 08/01/23 Bernardo Dorantes MD [address] [place] [address] [phone] PCP - General Internal Medicine 08/02/23 Paulo Meraz MD Comptometer Operator Cardiovascular Disease 02/17/21 Jose Marcelo PA [address] [place] [address] [phone] Specialist Cardiology 09/08/22 Kelin Reeves NP [address] [place] [address] Cardiology 08/18/23 documented as of this encounter
--- OUTSIDE RECORDS SUMMARY | 2024-11-22 11:52 | XMS_ITS | Encounter Summary ---
Author Organization [facility] [employer] [facility] Address [address] [place] [address] Care Team Providers Care Matting Press Tender Name Role Phone Deidra Sneed DO Unavailable Unavailable Paulo Meraz MD Unavailable Rasta Syed MD Primary Care Provider [phone] Michelle Calderón MD Primary Care Provider Unavailable Rasta Syed MD Primary Care Provider [phone] Jose Marcelo Unavailable Bernardo Dorantes MD Primary Care Provider Kelin Reeves NP Unavailable [phone] Encounter Details Date Type Department Care Team Description 05/15/2022 Hospital Medical Records [address] [place] [address] Herman Michael MD [address] [facility] [address] [place] [address] Social History Tobacco Use Types Packs/Day Years [...] on filedocumented in this encounter Care Teams Matting Press Tender Relationship Specialty Start Date End Date Rasta Syed MD [address] [place] [address] PCP - General Internal Medicine 10/21/21 07/15/22 Demetria-Michelle Nova MD [address] [place] [address] PCP - General Internal Medicine 07/16/22 07/19/22 Rasta Syed MD [address] [place] [address] PCP - General Internal Medicine 07/20/22 08/01/23 Bernardo Dorantes MD [address] [place] [address] PCP - General Internal Medicine 08/02/23 Deidra Sneed, DO Internal Medicine 12/19/15 07/19/22 Paulo Meraz MD Medical Field Representative Cardiovascular Disease 02/17/21 Jose Marcelo PA [address] [place] [address] Specialist Cardiology 09/08/22 Kelin Reeves NP [address] [place] [address] Cardiology 08/18/23 documented as of this encounter
--- OUTSIDE RECORDS SUMMARY | 2024-11-22 11:52 | XMS_ITS | Encounter Summary ---
Author Organization [facility] Address [address] [place] [address] Care Team Providers Care Creative Lead Name Role Phone Paulo Meraz MD Unavailable Jose Marcelo Unavailable Bernardo Dorantes MD Primary Care Provider Kelin Reeves NP Unavailable Reason for Visit * Reason Onset Date Comments Information Needed 10/12/2023 Flying on [facility] Encounter Details Date Type Department Care Team Description 10/12/2023 Telephone Cardio PVC [facility] [address] [place] [address] [place] [address] Paulo Meraz MD [address] [place] [address] [phone] Information Needed (Flying on plane) Social History Tobacco Use Types Packs/Day Years [...] Telephone Encounter - Leann Bob C.M.A. - 10/13/2023 8:50 AM EST Left message on patient identified voicemail * Telephone Encounter - Leann Bob C.M.A. - 10/12/2023 4:48 PM EST Tried calling, but was in the shower; I will call 10/13 Echo scheduled for 10/26. * Telephone Encounter - Paulo Meraz MD - 10/12/2023 3:45 PM EST If she is feeling well I do not see any problem with flying. An echo was ordered. I would like to see that. Not sure when it is happening. * Telephone Encounter - Leann Bob C.M.A. - 10/12/2023 3:39 PM EST Her brother its getting in November. Will like to know if he can fly to [place] . * Telephone Encounter - Ciara Fritz - 10/12/2023 11:58 AM EST Patient calling to see if they can fly on airplane. Asking for call back [phone] documented in this encounter Plan of Treatment Not on file documented as of this encounter Visit Diagnoses Not on filedocumented in this encounter Care Teams Creative Lead Relationship Specialty Start Date End Date Bernardo Dorantes MD [address] [place] [address] PCP - General Internal Medicine 08/02/23 Paulo Meraz MD Ball Shagger Cardiovascular Disease 02/17/21 Jose Marcelo PA Specialist Cardiology 09/08/22 Kelin Reeves NP [address] [place] [address] Cardiology 08/18/23 documented as of this encounter
--- OUTSIDE RECORDS SUMMARY | 2024-11-22 11:52 | XMS_ITS | Encounter Summary ---
Author Organization [facility] Address [address] [place] [address] Care Team Providers Care Pot Fluxer Name Role Phone Deidra Sneed DO Unavailable Unavailable Paulo Meraz MD Unavailable Rasta Syed MD Primary Care Provider [phone] Michelle Calderón MD Primary Care Provider Unavailable Rasta Syed MD Primary Care Provider [phone] Jose Marcelo Unavailable Bernardo Dorantes MD Primary Care Provider Kelin Reeves NP Unavailable [phone] Encounter Details Date Type Department Care Team Description 06/08/2022 [facility] Medical Records [address] [place] [id number] [place] [address] Social History Tobacco Use Types Packs/Day Years [...] Date/Time Associated Diagnosis Comments OUTSIDE EKG Routine 06/08/2022 documented in this encounter Results * OUTSIDE EKG (06/08/2022) Provider Abstract CARDIOLOGY documented in this encounter Visit Diagnoses Not on filedocumented in this encounter Care Teams Pot Fluxer Relationship Specialty Start Date End Date Rasta Syed MD [address] [place] [address] PCP - General Internal Medicine 10/21/21 07/15/22 Demetria-Michelle Nova MD [address] [place] [address] PCP - General Internal Medicine 07/16/22 07/19/22 Rasta Syed MD [address] [place] [address] PCP - General Internal Medicine 07/20/22 08/01/23 Bernardo Dorantes MD [address] [place] [address] PCP - General Internal Medicine 08/02/23 Deidra Sneed, DO Internal Medicine 12/19/15 07/19/22 Paulo Meraz MD Nip Wrapper Cardiovascular Disease 02/17/21 Jose Marcelo PA [address] [place] [address] Specialist Cardiology 09/08/22 Kelin Reeves NP [address] [place] [address] Cardiology 08/18/23 documented as of this encounter
--- OUTSIDE RECORDS SUMMARY | 2024-11-22 11:53 | XMS_ITS ---
Author Organization [facility] Address [address] [place] [address] Care Team Providers Care Liner Inserter Name Role Phone Rasta Syed MD Primary Care Provider [phone] Active Problems Problem Noted Date Diagnosed Date Malignant neoplasm metastatic to bone 10/02/2022 Primary cancer of left upper lobe of lung 2020 Primary cancer of unknown site 03/10/2021 Current Oncology Plans No current plan information found. Past Plans ONCOLOGY TREATMENT Plan Name Start Date Discontinue Date Treatment Medications Discontinue Reason Plan Provider Cycles [facility] BCN OP PEMBROLIZUMAB (200 MG) 2 12/05/2023 albuterol (PROVENTIL)diphe nhydrAMINE (BENADRYL)EPINEP Hrinefamotidine (PEPCID)hydrocor tisone (SOLU-CORTEF) IVmeperidine (DEMEROL) 25 MG/MLpembrolizum ab (KEYTRUDA) infusionSaline Flush 0.9 %sodium chloride (NS) 0.9 %sodium chloride 0.9% bolus (NS) Not Tolerated Reyes Good MD 21 of 22 cycles started Radiation Treatments * No radiation treatments are documented for this patient in [facility]. Treatments may have been administered in another system.
--- OUTSIDE RECORDS SUMMARY | 2024-11-22 11:53 | XMS_ITS | Encounter Summary ---
Author Organization [facility] Address [address] [place] [address] Care Team Providers Care Soil Conservation Technician Name Role Phone Deidra Sneed DO Primary Care Pro vider Unavailable Deidra Sneed DO Unavailable Unavailable Hill Felton MD Primary Care Provider [phone] Deidra Sneed DO Primary Care Pro vider Unavailable Paulo Meraz MD Unavailable Danish Gore DO Primary Care Provider Sherry vailable Vita Hale PA-C Primary Care Provider U Rasta Burciaga MD Primary Care Provider [phone] Michelle Calderón MD Primary Care Provider Unavailable Rasta Syed MD Primary Care Provider [phone] Jose Marcelo Unavailable Bernardo Dorantes MD Primary Care Provider Kelin Reeves NP Unavailable [phone] Reason for Visit * Reason Comments E-prescribe Rx Request Encounter Details Date Type Department Care Team Description 10/03/2018 Refill Adult Medicine [address] [phone] Deidra Sneed DO E-prescribe Rx Request Social History Tobacco Use [...] encounter Miscellaneous Notes * Telephone Encounter - Deidra Sims DO - 10/03/2018 10:57 AM EST Filled by nephro/hd * Telephone Encounter - Laura Taylor M.A. - 10/03/2018 10:25 AM EST Lab Results Component Value Date NA 139 01/11/2018 K 5.4 01/11/2018 CO2 25.3 01/11/2018 CL 94 01/11/2018 BUN 79 01/11/2018 CREAT 13.3 01/11/2018 GLU 93 01/11/2018 CA 9.0 01/11/2018 GFR 4 01/11/2018 * Telephone Encounter - Kelin Ruiz - 10/03/2018 8:42 AM EST Patient would like script to be: E-PRESCRIBED/FAXED TO PHARMACY WHEN WAS THE PATIENT'S LAST APPOINTMENT IN ADULT MEDICINE? 04/08/18 WHEN WAS THE LAST TIME THE PATIENT SAW THEIR PCP? Same as above Does patient have an upcoming appointment? No-unable to reach left [facility] to call for appointment due to refill request. Appt due (THE MEDICATION REQUESTED IS ON THE MED [...] N/A Patients current insurance carrier is: Payor: [employer] / Plan: [facility] / Product Type: MEDICAID RISK documented in this encounter Plan of Treatment Not on file documented as of this encounter Visit Diagnoses Not on filedocumented in this encounter Care Teams Soil Conservation Technician Relationship Specialty Start Date End Date Deidra Sneed DO PCP - General 12/19/15 02/02/21 Hill Felton MD [address] [place] [address] PCP - General Internal Medicine 02/03/21 02/04/21 Deidra Sneed DO PCP - General Internal Medicine 02/05/21 04/22/21 Danish Gore DO [address] [place], [place] PCP - General Internal Medicine 04/23/21 06/12/21 Vita Hale PA-C [address] [place], [place] PCP - General Internal Medicine 06/13/21 10/20/21 Rasta Syed MD [address] [place] [address] PCP - General Internal Medicine 10/21/21 07/15/22 Michelle Calderón MD [address] [place] [address] PCP - General Internal Medicine 07/16/22 07/19/22 Rasta Syed MD [address] [place] [address] PCP - General Internal Medicine 07/20/22 08/01/23 Bernardo Dorantes MD [address] [place] [address] PCP - General Internal Medicine 08/02/23 Deidra Sneed, Internal Medicine 12/19/15 07/19/22 Paulo Meraz MD [address] [place] [address] Vice President Of Customer Service Cardiovascular Disease 02/17/21 Jose Marcelo PA [address] [place], [place] [phone] Specialist Cardiology 09/08/22 Kelin Reeves NP [address] [place] [address] Cardiology 08/18/23 documented as of this encounter
--- OUTSIDE RECORDS SUMMARY | 2024-11-22 11:53 | XMS_ITS | Clinical Summary ---
Author Organization Patient [facility] Address [address] [place] [address] Care Team Providers Care Desk Editor Name Role Phone Bernardo Dorantes MD Primary Care Provider Allergies Active Allergy Reactions Criticality Noted Date Comments Latex Hives 05/11/2024 Medications albuterol HFA (Proventil HFA) 90 mcg/actuation inhaler Inhale into the lungs. Active albuterol sulfate 90 mcg/actuation aerosol powdr breath activated Inhale into the lungs. 1 Active amiodarone (PACERONE) 200 mg tablet Take 1 tablet (200 mg total) by mouth daily. 3 Active amLODIPine (NORVASC) 5 mg tablet Take 1 tablet (5 mg total) by mouth 1 (one) time each day. 0 Active atorvastatin (LIPITOR) 40 mg tablet Take 1 tablet (40 mg total) by mouth 1 (one) time each day. Active atorvastatin (LIPITOR) 80 mg tablet Take 1 tablet (80 mg total) by mouth 1 (one) time each day. Active calcium acetate,phospha t bind, (PHOSLO) 667 mg capsule TAKE 2 CAPSULES BY MOUTH 3 TIMES A DAY Active cinacalcet (SENSIPAR) 30 mg tablet Take 1 tablet (30 mg total) by mouth daily. Active clopidogreL (PLAVIX) 75 mg tablet Take 1 tablet (75 mg total) by mouth 1 (one) time each day. 3 Active cyanocobalamin (VITAMIN B-12) 1,000 mcg tablet 1,000 mcg, By Mouth, Daily, # 30 tablet, Refills 2, Tot. Refills 2, Maintenance, 06/18/23 15:24:00 EDT, Route to Pharmacy Electronically, [facility] 3, Partial fill upon patient request if the prescription is for a schedule II opioid drug.... 3 Active ergocalciferol (VITAMIN D-2) 1,250 mcg (50,000 unit) capsule Take 1 capsule (50,000 Units total) by mouth once a week. Active HYDROcodone-jeffy taminophen (NORCO) 5-325 mg per tablet Take 1 tablet by mouth Every 4 hours as needed. 1 Active ipratropium-alb uteroL (DUONEB) 0.5-2.5 mg/3 mL nebulizer solution Inhale 3 mL into the lungs. 1 Active isosorbide dinitrate (ISORDIL) 30 mg tablet Take 3 tablets (90 mg total) by mouth 4 (four) times a day. Active isosorbide mononitrate (IMDUR) 60 mg 24 hr tablet Take 1 tablet (60 mg total) by mouth daily. 3 Active lamiVUDine (EPIVIR) 100 mg tablet See Instructions, TOME 1/2 TABLETA POR VIA ORAL A DIARIO, # 45 tablet, 1 Refills, Maintenance, 02/22/24 12:21:00 EDT, [facility]/pharmacy #[id number], 165, cm, 01/28/24 12:16:00 EDT, Height, 77.5, kg, 01/24/24 8:16:00 EDT, Dry Weight 8 Active lidocaine-prilo tate (EMLA) 2.5-2.5 % cream APPLY TO AFFECTED AREA ONE HOUR PRIOR TO PROCEDURE 3 Active LORazepam (ATIVAN) 0.5 mg tablet Take 1 tablet (0.5 mg total) by mouth every 6 hours as needed. Active Selzentry 150 mg tablet Take 1 tablet (150 mg total) by mouth 2 (two) times a day. for 30 days Active megestroL (MEGACE) 400 mg/10 mL (40 mg/mL) suspension TAKE 20 ML (800 MG TOTAL) BY MOUTH DAILY. 3 Active midodrine (PROAMATINE) 5 mg tablet TAKE 2 TABS PRE DIALYSIS ON ,WED AND 1 TAB MID DIALYSIS WED,,SAT Active nicotine (NICODERM CQ) 14 mg/[address] 1 patch on the skin 1 (one) time each day at the same time. Active nitroglycerin (NITROSTAT) 0.[address] 1 TABLET UNDER TONGUE EVERY 5 MIN NEEDED FOR CHEST PAIN, MAX OF 3 DOSES/15 MIN CALL 911/SEEK MEDICAL ATTENTION IF PAIN PERSISTS Active oxyCODONE (ROXICODONE) 5 mg immediate release tablet 3 Active prasugreL (EFFIENT) 10 mg tablet Take 1 tablet (10 mg total) by mouth 1 (one) time each day. Active ranolazine (RANEXA) 500 mg 12 hr tablet Take 1 tablet (500 mg total) by mouth. 3 Active temazepam (RESTORIL) 15 mg capsule 3 Active tenofovir disoproxil fumarate (VIREAD) 300 mg tablet TOME BREEZY TABLETA POR VIA ORAL SEMANALMENTE Active ticagrelor (BRILINTA) 90 mg tablet Take 1 tablet (90 mg total) by mouth 2 (two) times a day. Active traZODone (DESYREL) 50 mg tablet TAKE 2 TABLETS (100 MG TOTAL) BY MOUTH EVERY NIGHT Active valsartan (DIOVAN) 40 mg tablet Take 1 tablet (40 mg total) by mouth 1 (one) time each day. Active zolpidem (AMBIEN) 5 mg tablet Take 1 tablet (5 mg total) by mouth every night at bedtime as needed for sleep. Active aspirin 81 mg EC tablet TAKE 1 TABLET BY MOUTH EVERY DAY 90 tablet 3 4 Active metoprolol succinate (TOPROL-XL) 50 mg 24 hr tabletIndicatio ns:Chronic obstructive pulmonary disease, unspecified (CMS/HCC) TAKE 1 TABLET BY MOUTH EVERY DAY 90 tablet 1 5 Active Active Problems Problem Noted Date Diagnosed Date Malignant neoplasm metastatic to bone 10/02/2022 Primary malignant neoplasm of left upper lobe of lung 03/26/2021 Primary malignant neoplasm of unknown site 03/10 Encounters Date Type Department Care Team Description 11/20/2024 9:38 AM EST - 11/20/2024 11:59 PM EST Hospital Encounter [facility] CT Scan [address] [place] [phone] Metastatic primary lung cancer, left (CMS/HCC) Discharge Disposition: Home or Self Care 10/05/[address] [facility] Hematology Oncology [address] [place] [phone] [place] [address] Appt 10/04/2024 3:00 PM EST [facility] [address] [phone] Wayne Winters MD Chronic obstructive pulmonary disease, unspecified COPD type (CMS/HCC) (Primary Dx); Primary malignant neoplasm of left upper lobe of lung (CMS/HCC); Hypoxemia 09/13/2024 Telephone [facility] [address] [place] [address] Bernardo Dorantes MD Forms/questionnaires [facility] [address] [phone] Evelyn Barber MA DME request (Oxygen therapy SWO signed and faxed back to [facility]. Fax confirmation received. ) from Last 3 Months Immunizations Name Administration Dates Next Due Pfizer SARS-CoV-2 COVID-19, mRNA, LNP-S, preservative free 08/19/2021,07/29/2021 Surgical History Surgery Date Site/Laterality Comments CHOLECYSTECTOMY PROCEDURE: HISTORICAL CHOLECYSTECTOMY OTHER SURGICAL HISTORY PROCEDURE: AV FISTULA OR GRAFT ARTERIAL OTHER SURGICAL HISTORY PROCEDURE: COLONOSCOPY LESION REMOVAL OTHER SURGICAL HISTORY 04/11/2021 Left PROCEDURE: BIOPSY LUNG/MEDIASTINUM PERCUTANEOUS NEEDLE Medical History Medical History Date Comments Diabetes mellitus (CMS/HCC) Disease of thyroid gland ESRD on dialysis (CMS/HCC) DX:ES RD on dialysis (HCC); COMMENT: T, R , Sat HIV (human immunodeficiency virus infection) (CMS/HCC) DX:HIV (human immunodeficien cy virus infection) (HCC) HTN (hypertension) DX:HTN (hyper tension) Dyslipidemia DX:Dyslipidemia CTS (carpal tunnel syndrome) DX: CTS (carpal tunnel syndrome) Fractured fibula DX:Fractured fi bula Dyslipidemia DX:Dyslipidemia Macrocytic anemia DX:Macrocytic anemia Anal condyloma 2016 DX:Anal condylom a Bronchitis DX:Bronchitis Elevated lipids DX:Elevated lipi ds Anxiety DX:Anxiety Abnormal stress test 03/12/2021 DX:Abnormal stress test 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/2021 DX:Nonsquamous nonsmall cell neoplasm of lung (HCC) Family History Medical History Relation Name Comments No Known Problems Aunt No Known Problems Brother Heart attack Father Hypertension Father Other: Cancer skin Maternal Grandfather No Known Problems Maternal Grandmother Diabetes Mother Uterine cancer Mother htn, dm2 No Known Problems Mother's side 1 Other: skin ca Mother's side 2 grandfathe r No Known Problems Other No Known Problems Paternal Grandfather No Known Problems Paternal Grandmother No Known Problems Sister No Known Problems Uncle Blindness Neg Hx Breast cancer Neg Hx Cataracts Neg Hx Glaucoma Neg Hx Macular degeneration Neg Hx Strabismus Neg Hx Relation Name Status Comments Aunt Brother Father Maternal Grandfather Maternal Grandmother Mother Mother's side 1 Mother's side 2 Other Paternal Grandfather Paternal Grandmother Sister Uncle Social History Tobacco Use Types Packs/Day Years [...] on file Sexual Orientation Not on file Obstetrics History Last Filed Vital Signs Vital Sign Reading Time Taken Comments Blood Pressure 112/62 10/04/2024 3:22 PM EST Pulse 70 10/04/2024 3:22 PM EST Temperature 36.1 ??C (97 ??F) 10/04/2024 3:22 PM EST Respiratory Rate 20 10/04/2024 3:22 PM EST Oxygen Saturation 97% 10/04/2024 3:22 PM EST Inhaled Oxygen Concentration - - Weight 85.1 kg (187 lb 9.6 oz) 10/04/2024 3:22 P M EST Height 167.6 cm (5' 6 ) 10/04/2024 3:22 PM EST Body Mass Index 30.28 10/04/2024 3:22 PM EST Plan of Treatment Upcoming Encounters Date Type Department Care Team (Late st Contact Info) Description 11/29/2024 10:30 AM EST Office Visit [facility] Hematology Oncology [address] [place] [phone] Reyes Good MD [address] [place] [phone] 04/06/2025 1:15 PM EDT Office Visit Pulmonolgy - [place] 175 [facility] [address] [place] [phone] Wayne Winters MD 175 [facility] [address] [place] [address] Health Maintenance Due Date Last Done Comments Hepatitis A Vaccines (1 of 2 - Risk 2-dose series) 1991 Hepatitis B Vaccines (3 of 3 - 19+ 3-dose series) 04/29/2016 03/04/2016, 12/03/2015, 10/17/2015, Additional history exists COVID-19 Vaccine (3 - Pfizer risk series) 09/16/2021 08/19/2021, 07/29/2021 Meningococcal ACWY Vaccine (3 - Risk 2-dose series) 06/07/2022 06/07/2017, 02/15/2017 Pneumococcal Vaccine: 50+ Years (3 of 3 - PCV) 06/13/2022 06/13/2021, 10/03/2015 Colorectal Cancer Screening: Colonoscopy 08/31/2022 Depression Screening 08/31/2022 Lung Cancer Screening (Low Dose CT) 08/31/2022 Social Influencers of Health Screening 08/31/2022 Hypertension/CHF/CAD Annual BMP Blood Test 02/25/2023 02/25/2022, 10/12/2020, 10/11/2020, Additional history exists Influenza Vaccine (#1) 2024 3, 07/24/2022, 07/25/2018, Additional history exists DTaP,Tdap,and Td Vaccines (2 - Td or Tdap) 05/18/2026 05/18/2016 Pneumococcal Vaccine: Pediatrics (0 to 5 Years) and At-Risk Patients (6 to 64 Years) (4 of 4 - PCV20 or PCV21) 06/13/2026 06/13/2021, 10/03/2015, 08/03/2015 Cholesterol Screening (Lipid Panel) 10/05/2029 10/05/2024 MMR Vaccines Aged Out 04/08/2018, 09/2017, 02/25/2018 No longer eligible based on patient's age to complete this topic Hepatitis C Screening Completed 10/07/2020 Zoster Vaccines Completed 08/25/2022, 07/24/2022 HIB Vaccines Aged Out No longer eligi ble based on patient's age to complete this topic HPV Vaccines Aged Out No longer eligi ble based on patient's age to complete this topic IPV Vaccines Aged Out No longer eligi ble based on patient's age to complete this topic Meningococcal B Vacine Aged Out No lo nger eligible based on patient's age to complete this topic RSV Immunization Patients Under 20 months Aged Out No longer eligible based on patient's age to complete this topic Varicella Vaccines Aged Out No longer eligible based on patient's age to complete this topic Procedures Procedure Name Priority Date/Time Associated Diagnosis Comments ANNUAL BMP BLOOD TEST Routine 02/25/2022 from Last 3 Months or Most Recently Relevant to Health Maintenance Results * Annual BMP Blood Test (02/25/2022) Annual BMP Blood Test abstracted us Historical Provider HEALTH MAINTENANCE Final Result from Last 3 Months or Most Recently Relevant to Health Maintenance Insurance [facility] Advance Directives Documents on File Type Date Recorded 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 Health Care Decision (hx) 02/27/2021 AD ROUSSEAU DIRECTIVE Health Care Decision (hx) 02/27/2021 AD ROUSSEAU DIRECTIVE Health Care Decision (hx) 02/27/2021 AD ROUSSEAU DIRECTIVE Health Care Decision (hx) 02/27/2021 AD ROUSSEAU DIRECTIVE Health Care Decision (hx) 02/27/2021 AD ROUSSEAU DIRECTIVE Health Care Decision (hx) 02/27/2021 AD ROUSSEAU DIRECTIVE Health Care Decision (hx) 02/27/2021 AD ROUSSEAU DIRECTIVE Health Care Decision (hx) 02/27/2021 AD ROUSSEAU DIRECTIVE Health Care Decision (hx) 02/27/2021 AD ROUSSEAU DIRECTIVE Health Care Decision (hx) 02/27/2021 AD ROUSSEAU DIRECTIVE Health Care Decision (hx) 02/27/2021 AD ROUSSEAU DIRECTIVE Health Care Decision (hx) 02/27/2021 AD ROUSSEAU DIRECTIVE Health Care Decision (hx) 02/27/2021 AD ROUSSEAU DIRECTIVE Health Care Decision (hx) 02/27/2021 AD ROUSSEAU DIRECTIVE Health Care Decision (hx) 02/27/2021 AD ROUSSEAU DIRECTIVE Health Care Decision (hx) 02/27/2021 AD ROUSSEAU DIRECTIVE Health Care Decision (hx) 02/27/2021 AD ROUSSEAU DIRECTIVE Health Care Decision (hx) 02/27/2021 AD ROUSSEAU DIRECTIVE Health Care Decision (hx) 02/27/2021 AD ROUSSEAU DIRECTIVE Health Care Decision (hx) 02/27/2021 AD ROUSSEAU DIRECTIVE Health Care Decision (hx) 02/27/2021 AD ROUSSEAU DIRECTIVE Health Care Decision (hx) 02/27/2021 AD ROUSSEAU DIRECTIVE Health Care Decision (hx) 02/27/2021 AD ROUSSEAU DIRECTIVE Health Care Decision (hx) 02/27/2021 AD ROUSSEAU DIRECTIVE Health Care Decision (hx) 02/27/2021 AD ROUSSEAU DIRECTIVE Health Care Decision (hx) 02/27/2021 AD ROUSSEAU DIRECTIVE Health Care Decision (hx) 02/27/2021 AD ROUSSEAU DIRECTIVE Health Care Decision (hx) 02/27/2021 AD ROUSSEAU DIRECTIVE Health Care Decision (hx) 02/27/2021 AD ROUSSEAU DIRECTIVE Health Care Decision (hx) 02/27/2021 AD ROUSSEAU DIRECTIVE Health Care Decision (hx) 02/27/2021 AD ROUSSEAU DIRECTIVE Health Care Decision (hx) 02/27/2021 AD ROUSSEAU DIRECTIVE Health Care Decision (hx) 02/27/2021 AD ROUSSEAU DIRECTIVE Health Care Decision (hx) 02/27/2021 AD ROUSSEAU DIRECTIVE Health Care Decision (hx) 02/27/2021 AD ROUSSEAU DIRECTIVE Health Care Decision (hx) 02/27/2021 AD ROUSSEAU DIRECTIVE Health Care Decision (hx) 02/27/2021 AD ROUSSEAU DIRECTIVE Health Care Decision (hx) 02/27/2021 AD ROUSSEAU DIRECTIVE Health Care Decision (hx) 02/27/2021 AD ROUSSEAU DIRECTIVE Health Care Decision (hx) 02/27/2021 AD ROUSSEAU DIRECTIVE Health Care Decision (hx) 02/27/2021 AD ROUSSEAU DIRECTIVE Health Care Decision (hx) 02/27/2021 AD ROUSSEAU DIRECTIVE Health Care Decision (hx) 02/27/2021 AD ROUSSEAU DIRECTIVE Health Care Decision (hx) 02/27/2021 AD ROUSSEAU DIRECTIVE Health Care Decision (hx) 02/27/2021 AD ROUSSEAU DIRECTIVE Health Care Decision (hx) 02/27/2021 AD ROUSSEAU DIRECTIVE Health Care Decision (hx) 02/27/2021 AD ROUSSEAU DIRECTIVE Health Care Decision (hx) 02/27/2021 AD ROUSSEAU DIRECTIVE Health Care Decision (hx) 02/27/2021 AD ROUSSEAU DIRECTIVE Health Care Decision (hx) 02/27/2021 AD ROUSSEAU DIRECTIVE Health Care Decision (hx) 02/27/2021 AD ROUSSEAU DIRECTIVE Health Care Decision (hx) 02/27/2021 AD ROUSSEAU DIRECTIVE Health Care Decision (hx) 02/27/2021 AD ROUSSEAU DIRECTIVE Health Care Decision (hx) 02/27/2021 AD ROUSSEAU DIRECTIVE Health Care Decision (hx) 02/27/2021 AD ROUSSEAU DIRECTIVE Health Care Decision (hx) 02/27/2021 AD ROUSSEAU DIRECTIVE Health Care Decision (hx) 02/27/2021 AD ROUSSEAU DIRECTIVE Health Care Decision (hx) 02/27/2021 AD ROUSSEAU DIRECTIVE Health Care Decision (hx) 02/27/2021 AD ROUSSEAU DIRECTIVE Health Care Decision (hx) 02/27/2021 AD ROUSSEAU DIRECTIVE Health Care Decision (hx) 02/27/2021 AD ROUSSEAU DIRECTIVE Health Care Decision (hx) 02/27/2021 AD ROUSSEAU DIRECTIVE Health Care Decision (hx) 02/27/2021 AD ROUSSEAU DIRECTIVE Health Care Decision (hx) 02/27/2021 AD ROUSSEAU DIRECTIVE Health Care Decision (hx) 02/27/2021 AD ROUSSEAU DIRECTIVE Health Care Decision (hx) 02/27/2021 AD ROUSSEAU DIRECTIVE Health Care Decision (hx) 02/27/2021 AD ROUSSEAU DIRECTIVE Health Care Decision (hx) 02/27/2021 AD ROUSSEAU DIRECTIVE Health Care Decision (hx) 02/27/2021 AD ROUSSEAU DIRECTIVE Health Care Decision (hx) 02/27/2021 AD ROUSSEAU DIRECTIVE Health Care Decision (hx) 02/27/2021 AD ROUSSEAU DIRECTIVE Care Teams Desk Editor Relationship Specialty Start Date End Date Bernardo Dorantes MD [address] [place] [address] PCP - General 08/02/23
--- OUTSIDE RECORDS SUMMARY | 2024-11-22 11:53 | XMS_ITS | Encounter Summary ---
Author Organization [facility] Address [address] [place] [address] Care Team Providers Care Security Tester Name Role Phone Deidra Sneed DO Primary Care Pro vider Unavailable Deidra Sneed DO Unavailable Unavailable Hill Felton MD Primary Care Provider [phone] Deidra Sneed DO Primary Care Pro vider Unavailable Paulo Meraz MD Unavailable Danish Gore DO Primary Care Provider Sherry vailable Vita Hale PA-C Primary Care Provider U Rasta Burciaga MD Primary Care Provider [phone] Michelle Calderón MD Primary Care Provider Unavailable Rasta Syed MD Primary Care Provider [phone] Jose Marcelo Unavailable Bernardo Dorantes MD Primary Care Provider Kelin Reeves NP Unavailable [phone] Reason for Visit * Reason Onset Date Comments Call From [facility] 04/14/2018 Encounter Details Date Type Department Care Team Description 04/14/2018 Telephone Adult [address] [phone] Deidra Sneed DO Call From Office Social History Tobacco Use Types Packs/Day Years [...] encounter Miscellaneous Notes * Telephone Encounter - Verónica WrightP.N. - 04/14/2018 1:53 PM EDT Called Ashley , explained issues with the fax WILL TRY TO FAX , IF UNABLE , WILL TRY TOMORROW Verbal dates given Awaiting out confiramtion * Telephone Encounter - Gita Teresa - 04/14/2018 8:48 AM EDT Ashley from [facility] requesting a copy of mmr pt received on 04/08/2018 be faxed to her attention today please [phone] documented in this encounter Plan of Treatment Not on file documented as of this encounter Visit Diagnoses Not on filedocumented in this encounter Care Teams Security Tester Relationship Specialty Start Date End Date Deidra Sneed DO PCP - General 12/19/15 02/02/21 Hill Felton MD [address] [place] [address] PCP - General Internal Medicine 02/03/21 02/04/21 Deidra Sneed DO PCP - General Internal Medicine 02/05/21 04/22/21 Danish Gore DO [address] [place], [place] PCP - General Internal Medicine 04/23/21 06/12/21 Vita Hale PA-C [address] [place], [place] PCP - General Internal Medicine 06/13/21 10/20/21 Rasta Syed MD [address] [place] [address] PCP - General Internal Medicine 10/21/21 07/15/22 [place]-Michelle Nova MD [address] [place] [address] PCP - General Internal Medicine 07/16/22 07/19/22 Rasta Syed MD [address] [place] [address] PCP - General Internal Medicine 07/20/22 08/01/23 Bernardo Dorantes MD [address] [place] [address] PCP - General Internal Medicine 08/02/23 Deidra Sneed, DO Internal Medicine 12/19/15 07/19/22 Paulo Meraz MD [address] [place] [address] Reaming Machine Operator Cardiovascular Disease 02/17/21 Jose Marcelo PA [address] [place] [address] Specialist Cardiology 09/08/22 Kelin Reeves NP [address] [place] [address] Cardiology 08/18/23 documented as of this encounter
--- OUTSIDE RECORDS SUMMARY | 2024-11-22 11:53 | XMS_ITS | Encounter Summary ---
Author Organization [facility] Address [address] [place] [address] Care Team Providers Care Armament Repairer Name Role Phone Deidra Sneed DO Primary Care Pro vider Unavailable Deidra Sneed DO Unavailable Unavailable Hill Felton MD Primary Care Provider [phone] Deidra Sneed DO Primary Care Pro vider Unavailable Paulo Meraz MD Unavailable Danish Gore DO Primary Care Provider Sherry vailable Vita Hale PA-C Primary Care Provider U Rasta Burciaga MD Primary Care Provider [phone] Michelle Cadlerón MD Primary Care Provider Unavailable Rasta Syed MD Primary Care Provider [phone] Jose Marcelo Unavailable Bernardo Dorantes MD Primary Care Provider Kelin Reeves NP Unavailable [phone] Encounter Details Date Type Department Care Team Description 05/03/2018 Transfer Table Operator Helper Report Medical Records [address] [place] [address] Abstract, Provider Social History Tobacco Use Types [...] on filedocumented in this encounter Care Teams Armament Repairer Relationship Specialty Start Date End Date Deidra Sneed DO PCP - General 12/19/15 02/02/21 Hill Felton MD [address] [place], [place] PCP - General Internal Medicine 02/03/21 02/04/21 Deidra Sneed DO PCP - General Internal Medicine 02/05/21 04/22/21 Danish Gore DO [address] [place], [place] PCP - General Internal Medicine 04/23/21 06/12/21 Vita Hale PA-C [address] [place], [place] PCP - General Internal Medicine 06/13/21 10/20/21 Rasta Syed MD [address] [place] [address] PCP - General Internal Medicine 10/21/21 07/15/22 Michelle Calderón MD [address] [place] [address] PCP - General Internal Medicine 07/16/22 07/19/22 Rasta Syed MD [address] [place] [address] PCP - General Internal Medicine 07/20/22 08/01/23 Bernardo Dorantes MD [address] [place] [address] PCP - General Internal Medicine 08/02/23 Deidra Sneed DO Internal Medicine 12/19/15 07/19/22 Paulo Meraz MD [address] [place] [address] Rn Mds Coordinator Cardiovascular Disease 02/17/21 Jose Marcelo PA [address] [place] [address] Specialist Cardiology 09/08/22 Kelin Reeves, [place] [address] [place] [address] Cardiology 08/18/23 documented as of this encounter
--- OUTSIDE RECORDS SUMMARY | 2024-11-22 11:53 | XMS_ITS | Encounter Summary ---
Author Organization [facility] Address [address] [place] [address] Care Team Providers Care Commercial Finance Analyst Name Role Phone Deidra Sneed DO Primary Care Pro vider Unavailable Deidra Sneed DO Unavailable Unavailable Hill Felton MD Primary Care Provider [phone] Deidra Sneed DO Primary Care Pro vider Unavailable Paulo Meraz MD Unavailable Danish Gore DO Primary Care Provider Sherry vailable Vita Hale PA-C Primary Care Provider U Rasta Burciaga MD Primary Care Provider [phone] Michelle Calderón MD Primary Care Provider Unavailable Rasta Syed MD Primary Care Provider [phone] Jose Marcelo Unavailable Bernardo Dorantes MD Primary Care Provider Kelin Reeves NP Unavailable [phone] Encounter Details Date Type Department Care Team Description 08/24/2016 Hospital Medical Records [address] [place] [address] Miguelina Borrero MD Social History Tobacco Use Types Packs/Day [...] on filedocumented in this encounter Care Teams Commercial Finance Analyst Relationship Specialty Start Date End Date Deidra Sneed DO PCP - General 12/19/15 02/02/21 Hill Felton MD [address] [place], [place] PCP - General Internal Medicine 02/03/21 02/04/21 Deidra Sneed DO PCP - General Internal Medicine 02/05/21 04/22/21 Danish Gore DO [address] [place], [place] PCP - General Internal Medicine 04/23/21 06/12/21 Vita Hale PA-C [address] [place], [place] PCP - General Internal Medicine 06/13/21 10/20/21 Rasta Syed MD [address] [place] [address] PCP - General Internal Medicine 10/21/21 07/15/22 Michelle Calderón MD [address] [place] [address] PCP - General Internal Medicine 07/16/22 07/19/22 Rasta Syed MD [address] [place] [address] PCP - General Internal Medicine 07/20/22 08/01/23 Bernardo Dorantes MD [address] [place] [address] PCP - General Internal Medicine 08/02/23 Deidra Sneed DO Internal Medicine 12/19/15 07/19/22 Paulo Meraz MD [address] [place] [address] Practice Consultant Cardiovascular Disease 02/17/21 Jose Marcelo PA [address] [place] [address] Specialist Cardiology 09/08/22 Kelin Reeves, [place] [address] [place] [address] Cardiology 08/18/23 documented as of this encounter
--- OUTSIDE RECORDS SUMMARY | 2024-11-22 11:53 | XMS_ITS | Encounter Summary ---
Author Organization [facility] Address [address] [place] [address] Care Team Providers Care Gang Punch Operator Name Role Phone Deidra Sneed DO Primary Care Pro vider Unavailable Deidra Sneed DO Unavailable Unavailable Hill Felton MD Primary Care Provider [phone] Deidra Sneed DO Primary Care Pro vider Unavailable Paulo Meraz MD Unavailable Danish Gore DO Primary Care Provider Sherry vailable Vita Hale PA-C Primary Care Provider U Rasta Burciaga MD Primary Care Provider [phone] Michelle Calderón MD Primary Care Provider Unavailable Rasta Syed MD Primary Care Provider [phone] Jose Marcelo Unavailable Bernardo Dorantes MD Primary Care Provider Kelin Reeves NP Unavailable [phone] Encounter Details Date Type Department Care Team Description 12/06/2019 Chronic Manager Report Medical Records [address] [place] [address] Social History Tobacco Use Types Packs/Day Years [...] on filedocumented in this encounter Care Teams Gang Punch Operator Relationship Specialty Start Date End Date Deidra Sneed DO PCP - General 12/19/15 02/02/21 Hill Felton MD [address] [place], [place] PCP - General Internal Medicine 02/03/21 02/04/21 Deidra Sneed DO PCP - General Internal Medicine 02/05/21 04/22/21 Danish Gore DO [address] [place], [place] PCP - General Internal Medicine 04/23/21 06/12/21 Vita Hale PA-C [address] [place], [place] PCP - General Internal Medicine 06/13/21 10/20/21 Rasta Syed MD [address] [place] [address] PCP - General Internal Medicine 10/21/21 07/15/22 Michelle Calderón MD [address] [place] [address] PCP - General Internal Medicine 07/16/22 07/19/22 Rasta Syed MD [address] [place] [address] PCP - General Internal Medicine 07/20/22 08/01/23 Bernardo Dorantes MD [address] [place] [address] PCP - General Internal Medicine 08/02/23 Deidra Sneed DO Internal Medicine 12/19/15 07/19/22 Paulo Meraz MD [address] [place] [address] Full Time Babysitter Cardiovascular Disease 02/17/21 Jose Marcelo PA [address] [place] [address] Specialist Cardiology 09/08/22 Kelin Reeves, LIMA [address] [place] [address] Cardiology 08/18/23 documented as of this encounter
--- OUTSIDE RECORDS SUMMARY | 2024-11-22 11:53 | XMS_ITS | Encounter Summary ---
Author Organization [facility] Address [address] [place] [address] Care Team Providers Care Security Intern Name Role Phone Deidra Sneed DO Primary Care Pro vider Unavailable Deidra Sneed DO Unavailable Unavailable Hill Felton MD Primary Care Provider [phone] Deidra Sneed DO Primary Care Pro vider Unavailable Paulo Meraz MD Unavailable Danish Gore DO Primary Care Provider Sherry vailable Vita Hale PA-C Primary Care Provider U Rasta Burciaga MD Primary Care Provider Michelle Calderón MD Primary Care Provider Unavailable Rasta Syed MD Primary Care Provider [phone] Jose Marcelo Unavailable Bernardo Dorantes MD Primary Care Provider Kelin Reeves NP Unavailable [phone] Encounter Details Date Type Department Care Team Description 09/30/2018 Orders Only Adult Medicine [address] [id number] Deidra Sneed DO Graham's palsy (Primary Dx) Social History Tobacco Use Types Packs/Day Years [...] as of this encounter Visit Diagnoses Diagnosis Graham's palsy- Primary documented in this encounter Care Teams Security Intern Relationship Specialty Start Date End Date Deidra Sneed DO PCP - General 12/19/15 02/02/21 Hill Felton MD [address] [place] [address] PCP - General Internal Medicine 02/03/21 02/04/21 Deidra Sneed DO PCP - General Internal Medicine 02/05/21 04/22/21 Danish Gore DO [address] [place], [place] PCP - General Internal Medicine 04/23/21 06/12/21 Vita Hale PA-C [address] [place], [place] PCP - General Internal Medicine 06/13/21 10/20/21 Rasta Syed MD [address] [place] [address] PCP - General Internal Medicine 10/21/21 07/15/22 Michelle Calderón MD [address] [place] [address] PCP - General Internal Medicine 07/16/22 07/19/22 Rasta Syed MD [address] [place] [address] PCP - General Internal Medicine 07/20/22 08/01/23 Bernardo Dorantes MD [address] [place] [address] PCP - General Internal Medicine 08/02/23 Deidra Sneed DO Internal Medicine 12/19/15 07/19/22 Paulo Meraz MD [address] [place], [place] Recruitment Officer Cardiovascular Disease 02/17/21 Jose Marcelo PA [address] [place] [address] Specialist Cardiology 09/08/22 Kelin Reeves NP [address] [place] [address] Cardiology 08/18/23 documented as of this encounter
--- OUTSIDE RECORDS SUMMARY | 2024-11-22 11:53 | XMS_ITS | Encounter Summary ---
Author Organization [facility] Address [address] [place] [address] Care Team Providers Care Director Labor Standards Name Role Phone Deidra Sneed DO Primary Care Pro vider Unavailable Deidra Sneed DO Unavailable Unavailable Hill Felton MD Primary Care Provider [phone] Deidra Sneed DO Primary Care Pro vider Unavailable Paulo Meraz MD Unavailable Danish Gore DO Primary Care Provider Sherry vailable Vita Hale PA-C Primary Care Provider U Rasta Burciaga MD Primary Care Provider [phone] Michelle Calderón MD Primary Care Provider Unavailable Rasta Syed MD Primary Care Provider [phone] Jose Marcelo Unavailable Bernardo Dorantes MD Primary Care Provider Kelin Reeves NP Unavailable [phone] Encounter Details Date Type Department Care Team Description 11/13/2016 First Aid Instructor Report Medical Records [address] [place] [address] Social History Tobacco Use Types Packs/Day Years [...] filedocumented in this encounter Care Teams Director Labor Standards Relationship Specialty Start Date End Date Deidra Sneed DO PCP - General 12/19/15 02/02/21 Hill Felton MD [address] [place], [place] PCP - General Internal Medicine 02/03/21 02/04/21 Deidra Sneed DO PCP - General Internal Medicine 02/05/21 04/22/21 Danish Gore DO [address] [place], [place] PCP - General Internal Medicine 04/23/21 06/12/21 Vita Hale PA-C [address] [place], [place] PCP - General Internal Medicine 06/13/21 10/20/21 Rasta Syed MD [address] [place] [address] PCP - General Internal Medicine 10/21/21 07/15/22 Michelle Calderón MD [address] [place] [address] PCP - General Internal Medicine 07/16/22 07/19/22 Rasta Syed MD [address] [place] [address] PCP - General Internal Medicine 07/20/22 08/01/23 Bernardo Dorantes MD [address] [place] [address] PCP - General Internal Medicine 08/02/23 Deidra Sneed DO Internal Medicine 12/19/15 07/19/22 Paulo Meraz MD [address] [place], [place] Marketing Systems Manager Cardiovascular Disease 02/17/21 Jose Marcelo PA [address] [place] [address] Specialist Cardiology 09/08/22 Kelin Reeves NP [address] [place] [address] Cardiology 08/18/23 documented as of this encounter
--- OUTSIDE RECORDS SUMMARY | 2024-11-22 11:53 | XMS_ITS | Encounter Summary ---
Author Organization [facility] Address [address] [place] [address] Care Team Providers Care Used Car Lot Porter Name Role Phone Deidra Sneed DO Primary Care Pro vider Unavailable Deidra Sneed DO Unavailable Unavailable Hill Felton MD Primary Care Provider [phone] Deidra Sneed DO Primary Care Pro vider Unavailable Paulo Meraz MD Unavailable Danish Gore DO Primary Care Provider Sherry vailable Vtia HaleC Primary Care Provider U Rasta Burciaga MD Primary Care Provider [phone] Michelle Calderón MD Primary Care Provider Unavailable Rasta Syed MD Primary Care Provider [phone] Jose Marcelo Unavailable Bernardo Dorantes MD Primary Care Provider Kelin Reeves NP Unavailable [phone] Reason for Visit * Reason Onset Date Comments Testing 04/28/2017 Encounter Details Date Type Department Care Team Description 04/28/2017 Telephone Adult [address] [id number] Deidra Sneed DO Testing Social History Tobacco Use Types Packs/Day Years [...] encounter Miscellaneous Notes * Telephone Encounter - Jamee Garces - 04/28/2017 7:47 PM EDT Hoang Sauer has not responded to the telephone calls that were made on 03/01/17 and 03/03/17 as well as the letter that was sent on 03/08/[address] Scan of abdomen; therefore we are removing the test from our Scheduled Orders Report. Please note that this test must be reordered if required in the future. documented in this encounter Plan of Treatment Not on file documented as of this encounter Visit Diagnoses Not on filedocumented in this encounter Care Teams Used Car Lot Porter Relationship Specialty Start Date End Date Deidra Sneed DO PCP - General 12/19/15 02/02/21 Hill Felton MD [address] [place] [address] PCP - General Internal Medicine 02/03/21 02/04/21 Deidra Sneed DO PCP - General Internal Medicine 02/05/21 04/22/21 Danish Gore DO [address] [place] [address] PCP - General Internal Medicine 04/23/21 06/12/21 Vita Hale PA-C [address] [place] [address] PCP - General Internal Medicine 06/13/21 10/20/21 Rasta Syed MD [address] [place] [address] PCP - General Internal Medicine 10/21/21 07/15/22 Michelle Calderón MD [address] [place] [address] PCP - General Internal Medicine 07/16/22 07/19/22 Rasta Syed MD [address] [place] [address] PCP - General Internal Medicine 07/20/22 08/01/23 Bernardo Dorantes MD [address] [place] [address] PCP - General Internal Medicine 08/02/23 Deidra Sneed, DO Internal Medicine 12/19/15 07/19/22 Paulo Meraz MD [address] [place] [address] Paint Sprayer Sandblaster Cardiovascular Disease 02/17/21 Jose Marcelo PA [address] [place] [address] [id number] Specialist Cardiology 09/08/22 Kelin Reeves NP [address] [place] [address] Cardiology 08/18/23 documented as of this encounter
--- OUTSIDE RECORDS SUMMARY | 2024-11-22 11:53 | XMS_ITS | Encounter Summary ---
Author Organization [facility] Address [address] [place] [address] Care Team Providers Care Concrete Sculptor Name Role Phone Deidra Sneed DO Primary Care Pro vider Unavailable Deidra Sneed DO Unavailable Unavailable Hill Felton MD Primary Care Provider [phone] Deidra Sneed DO Primary Care Pro vider Unavailable Paulo Meraz MD Unavailable Danish Gore DO Primary Care Provider Sherry vailable Vita Hale PA-C Primary Care Provider U Rasta Burciaga MD Primary Care Provider [phone] Michelle Calderón MD Primary Care Provider Unavailable Rasta Syed MD Primary Care Provider [phone] Jose Marcelo Unavailable Bernardo Dorantes MD Primary Care Provider Kelin Reeves NP Unavailable [phone] Reason for Visit * Reason Comments E-prescribe Rx Request Encounter Details Date Type Department Care Team Description 11/09/2018 Refill Adult Medicine [address] [id number] Deidra Sneed DO E-prescribe Rx Request Social [...] encounter Miscellaneous Notes * Telephone Encounter - Diann Zambrano M.A. - 11/10/2018 11:06 AM EST Lab Results Component Value Date NA 139 01/11/2018 K 5.4 01/11/2018 CO2 25.3 01/11/2018 CL 94 01/11/2018 BUN 79 01/11/2018 CREAT 13.3 01/11/2018 GLU 93 01/11/2018 CA 9.0 01/11/2018 GFR 4 01/11/2018 * Telephone Encounter - Cassie Fuchs - 11/09/2018 4:42 PM EST Patient would like script to be: E-PRESCRIBED/FAXED TO PHARMACY WHEN WAS THE PATIENT'S LAST APPOINTMENT IN ADULT MEDICINE? 11-07-18 WHEN WAS THE LAST TIME THE PATIENT SAW THEIR PCP? Same as above Does patient have an upcoming appointment? Yes 02-06-19 (THE MEDICATION REQUESTED IS ON THE MED LIST ABOVE) One or some of the medications requested were on the HISTORICAL MED list Did you check the Pharmacy information above?: YES Patient wants: 30 -day supply Is this a mail order prescription request ? NO If the refill is from a FAXED refill request what is the RX # listed on the fax? N/A Patients current insurance carrier is: Payor: [employer] / Plan: [employer] [facility] / Product Type: MEDICAID RISK documented in this encounter Plan of Treatment Not on file documented as of this encounter Visit Diagnoses Not on filedocumented in this encounter Care Teams Concrete Sculptor Relationship Specialty Start Date End Date Deidra Sneed DO PCP - General 12/19/15 02/02/21 Hill Felton MD [address] [place] [address] PCP - General Internal Medicine 02/03/21 02/04/21 Deidra Sneed DO PCP - General Internal Medicine 02/05/21 04/22/21 Danish Gore DO [address] [place], [place] PCP - General Internal Medicine 04/23/21 06/12/21 Vita Hale PA-C [address] [place] [address] PCP - General Internal Medicine 06/13/21 10/20/21 Rasta Syed MD [address] [place] [address] PCP - General Internal Medicine 10/21/21 07/15/22 Michelle Calderón MD [address] [place] [address] PCP - General Internal Medicine 07/16/22 07/19/22 Rasta Syed MD [address] [place] [address] PCP - General Internal Medicine 07/20/22 08/01/23 Bernardo Dorantes MD [address] [place] [address] PCP - General Internal Medicine 08/02/23 Deidra Sneed DO Internal Medicine 12/19/15 07/19/22 Paulo Meraz MD [address] [place] [address] Woodwinds Teacher Cardiovascular Disease 02/17/21 Jose Marcelo PA [address] [place] [address] Specialist Cardiology 09/08/22 Kelin Reeves NP [address] [place] [address] Cardiology 08/18/23 documented as of this encounter
--- OUTSIDE RECORDS SUMMARY | 2024-11-22 11:53 | XMS_ITS | Encounter Summary ---
Author Organization [facility] Address [address] [place] [address] Care Team Providers Care Residential Support Worker Name Role Phone Deidra Sneed DO Primary Care Pro vider Unavailable Deidra Sneed DO Unavailable Unavailable Hill Felton MD Primary Care Provider [phone] Deidra Sneed DO Primary Care Pro vider Unavailable Paulo Meraz MD Unavailable Danish Gore DO Primary Care Provider Sherry vailable Vita Hale PA-C Primary Care Provider U Rasta Burciaga MD Primary Care Provider [phone] Michelle Calderón MD Primary Care Provider Unavailable Rasta Syed MD Primary Care Provider [phone] Jose Marcelo Unavailable Bernardo Dorantes MD Primary Care Provider Kelin Reeves NP Unavailable [phone] Encounter Details Date Type Department Care Team Description 11/19/2018 Release of Information Medical Records [address] [place] [address] Abstract, Provider Social History Tobacco Use Types [...] on filedocumented in this encounter Care Teams Residential Support Worker Relationship Specialty Start Date End Date Deidra Sneed DO PCP - General 12/19/15 02/02/21 Hill Felton MD [address] [place], [place] PCP - General Internal Medicine 02/03/21 02/04/21 Deidra Sneed DO PCP - General Internal Medicine 02/05/21 04/22/21 Danish Gore DO [address] [place], [place] PCP - General Internal Medicine 04/23/21 06/12/21 Vita Hale PA-C [address] [place], [place] PCP - General Internal Medicine 06/13/21 10/20/21 Rasta Syed MD [address] [place] [address] PCP - General Internal Medicine 10/21/21 07/15/22 Michelle Calderón MD [address] [place] [address] PCP - General Internal Medicine 07/16/22 07/19/22 Rasta Syed MD [address] [place] [address] PCP - General Internal Medicine 07/20/22 08/01/23 Bernardo Dorantes MD [address] [place] [address] PCP - General Internal Medicine 08/02/23 Deidra Sneed DO Internal Medicine 12/19/15 07/19/22 Paulo Meraz MD [address] [place] [address] Manager Convention Cardiovascular Disease 02/17/21 Jose Marcelo PA [address] [place] [address] Specialist Cardiology 09/08/22 Kelin Reeves NP [address] [place] [address] Cardiology 08/18/23 documented as of this encounter
--- OUTSIDE RECORDS SUMMARY | 2024-11-22 11:53 | XMS_ITS | Encounter Summary ---
Author Organization [facility] Address [address] [place] [address] Care Team Providers Care Supervisor Network Control Operators Name Role Phone Paulo Meraz MD Unavailable Jose Marcelo Unavailable Bernardo Dorantes MD Primary Care Provider Kelin Reeves NP Unavailable [phone] Encounter Details Date Type Department Care Team Description 03/06/2024 Orders Only Lab - [place] [address] [place] [id number] Kelin Reeves, LIMA [address] [facility] [place] [address] Social History Tobacco Use Types Packs/Day Years [...] filedocumented in this encounter Care Teams Supervisor Network Control Operators Relationship Specialty Start Date End Date Bernardo Dorantes MD [address] [place], [place] 0827820 PCP - General Internal Medicine 08/02/23 Paulo Meraz MD Cabin Outfitter Cardiovascular Disease 02/17/21 Jose Marcelo PA Specialist Cardiology 09/08/22 Kelin Reeves NP [address] [place] [address] Cardiology 08/18/23 documented as of this encounter
--- OUTSIDE RECORDS SUMMARY | 2024-11-22 11:53 | XMS_ITS | Encounter Summary ---
Author Organization [facility] Address [address] [place] [address] Care Team Providers Care Microwave Technician Name Role Phone Deidra Sneed DO Primary Care Pro vider Unavailable Deidra Sneed DO Unavailable Unavailable Hill Felton MD Primary Care Provider [phone] Deidra Sneed DO Primary Care Pro vider Unavailable Paulo Meraz MD Unavailable Danish Gore DO Primary Care Provider Sherry vailable Vita Hale PA-C Primary Care Provider U Rasta Burciaga MD Primary Care Provider [phone] Michelle Calderón MD Primary Care Provider Unavailable Rasta Syed MD Primary Care Provider [phone] Jose Marcelo Unavailable Bernardo Dorantes MD Primary Care Provider Kelin Reeves NP Unavailable [phone] Encounter Details Date Type Department Care Team Description 01/31/2019 C Web Developer Report Medical Records [address] [place] [address] Rafa Garcia MD Social History Tobacco Use Types Packs/Day [...] on filedocumented in this encounter Care Teams Microwave Technician Relationship Specialty Start Date End Date Deidra Sneed DO PCP - General 12/19/15 02/02/21 Hill Felton MD [address] [place] [address] PCP - General Internal Medicine 02/03/21 02/04/21 Deidra Sneed DO PCP - General Internal Medicine 02/05/21 04/22/21 Danish Gore DO [address] [place] [address] PCP - General Internal Medicine 04/23/21 06/12/21 Vita Hale PA-C [address] [place], [place] PCP - General Internal Medicine 06/13/21 10/20/21 Rasta Syed MD [address] [place] [address] PCP - General Internal Medicine 10/21/21 07/15/22 Michelle Calderón MD [address] [place] [address] PCP - General Internal Medicine 07/16/22 07/19/22 Rasta Syed MD [address] [place] [address] PCP - General Internal Medicine 07/20/22 08/01/23 Bernardo Dorantes MD [address] [place] [address] PCP - General Internal Medicine 08/02/23 Deidra Sneed, DO Internal Medicine 12/19/15 07/19/22 Paulo Meraz MD [address] [place] [address] Bessemer Bottom Maker Cardiovascular Disease 02/17/21 Jose Marcelo PA [address] [place] [address] Specialist Cardiology 09/08/22 Kelin Reeves, LIMA [address] [place] [address] Cardiology 08/18/23 documented as of this encounter
--- OUTSIDE RECORDS SUMMARY | 2024-11-22 11:53 | XMS_ITS | Encounter Summary ---
Author Organization [facility] Address [address] [place] [address] Care Team Providers Care Chart Writer Name Role Phone Deidra Sneed DO Primary Care Pro vider Unavailable Deidra Sneed DO Unavailable Unavailable Hill Felton MD Primary Care Provider [phone] Deidra Sneed DO Primary Care Pro vider Unavailable Paulo Meraz MD Unavailable Danish Gore DO Primary Care Provider Sherry vailable Vita Hale PA-C Primary Care Provider U Rasta Burciaga MD Primary Care Provider [phone] Michelle Calderón MD Primary Care Provider Unavailable Rasta Syed MD Primary Care Provider [phone] Jose Marcelo Unavailable Bernardo Dorantes MD Primary Care Provider Kelin Reeves NP Unavailable [phone] Encounter Details Date Type Department Care Team Description 04/12/2018 Transfer Records Medical Records [address] [place] [address] Abstract, Provider Social History Tobacco Use Types [...] on filedocumented in this encounter Care Teams Chart Writer Relationship Specialty Start Date End Date Deidra Sneed DO PCP - General 12/19/15 02/02/21 Hill Felton MD [address] [place], [place] PCP - General Internal Medicine 02/03/21 02/04/21 Deidra Sneed DO PCP - General Internal Medicine 02/05/21 04/22/21 Danish Gore DO [address] [place], [place] PCP - General Internal Medicine 04/23/21 06/12/21 Vita Hale PA-C [address] [place], [place] PCP - General Internal Medicine 06/13/21 10/20/21 Rasta Syed MD [address] [place] [address] PCP - General Internal Medicine 10/21/21 07/15/22 Michelle Calderón MD [address] [place] [address] PCP - General Internal Medicine 07/16/22 07/19/22 Rasta Syed MD [address] [place] [address] PCP - General Internal Medicine 07/20/22 08/01/23 Bernardo Dorantes MD [address] [place] [address] PCP - General Internal Medicine 08/02/23 Deidra Sneed DO Internal Medicine 12/19/15 07/19/22 Paulo Meraz MD [address] [place] [address] Flag Maker Cardiovascular Disease 02/17/21 Jose Marcelo PA [address] [place] [address] Specialist Cardiology 09/08/22 Kelin Reeves, LIMA [address] [place] [address] Cardiology 08/18/23 documented as of this encounter
--- OUTSIDE RECORDS SUMMARY | 2024-11-22 11:53 | XMS_ITS | Encounter Summary ---
Author Organization [facility] Address [address] [place] [address] Care Team Providers Care Records Management Clerk Name Role Phone Paulo Meraz MD Unavailable Jose Marcelo Unavailable Bernardo Dorantes MD Primary Care Provider Kelin Reeves NP Unavailable [phone] Encounter Details Date Type Department Care Team Description 03/10/2024 Hospital Medical Records [address] [place] [address] Social History Tobacco Use Types Packs/Day Years [...] Associated Diagnosis Comments OUTSIDE PLAIN FILM Routine 03/11/2024 OUTSIDE EKG Routine 03/10/2024 documented in this encounter Results * OUTSIDE PLAIN FILM (03/11/2024) Provider Default RADIOLOGY * OUTSIDE EKG (03/10/2024) Provider Default CARDIOLOGY documented in this encounter Visit Diagnoses Not on filedocumented in this encounter Care Teams Records Management Clerk Relationship Specialty Start Date End Date Bernardo Dorantes MD [address] [place] [address] PCP - General Internal Medicine 08/02/23 Paulo Meraz MD Legal Specialist Cardiovascular Disease 02/17/21 Jose Marcelo PA Specialist Cardiology 09/08/22 Kelin Reeves NP [address] [place] [address] Cardiology 08/18/23 documented as of this encounter
--- OUTSIDE RECORDS SUMMARY | 2024-11-22 11:53 | XMS_ITS | Encounter Summary ---
Author Organization [facility] Address [address] [place] [address] Care Team Providers Care Supervisor International Reservations Name Role Phone Paulo Meraz MD Unavailable Jose Marcelo Unavailable Bernardo Dorantes MD Primary Care Provider Kelin Reeves NP Unavailable [phone] Encounter Details Date Type Department Care Team Description 11/05/2023 Orders Only Medical Records [address] [place] [address] Reyes Good MD Social History Tobacco Use [...] Date/Time Associated Diagnosis Comments OUTSIDE CT Routine 09/13/2023 documented in this encounter Results * OUTSIDE CT (09/13/2023) Reyes Good MD RADIOLOGY documented in this encounter Visit Diagnoses Not on filedocumented in this encounter Care Teams Supervisor International Reservations Relationship Specialty Start Date End Date Bernardo Dorantes MD [address] [place] [address] PCP - General Internal Medicine 08/02/23 Paulo Meraz MD Sheriff'S Officer Cardiovascular Disease 02/17/21 Jose Marcelo PA Specialist Cardiology 09/08/22 Kelin Reeves NP [address] [place] [address] Cardiology 08/18/23 documented as of this encounter
--- OUTSIDE RECORDS SUMMARY | 2024-11-22 11:53 | XMS_ITS | Encounter Summary ---
Author Organization [facility] Address [address] [place] [address] Care Team Providers Care Trauma Therapist Name Role Phone Deidra Sneed DO Primary Care Pro vider Unavailable Deidra Sneed DO Unavailable Unavailable Hill Felton MD Primary Care Provider [phone] Deidar Sneed DO Primary Care Pro vider Unavailable Paulo Meraz MD Unavailable Danish Gore DO Primary Care Provider Sherry vailable Vita Hale PA-C Primary Care Provider U Rasta Burciaga MD Primary Care Provider [phone] Michelle Calderón MD Primary Care Provider Unavailable Rasta Syed MD Primary Care Provider [phone] Jose Marcelo Unavailable Bernardo Dorantes MD Primary Care Provider Kelin Reeves NP Unavailable [phone] Encounter Details Date Type Department Care Team Description 01/29/2021 Hospital Medical Records [address] [place] [address] [facility] Social History Tobacco Use Types Packs/Day Years [...] Exposure Response Date Recorded In the last month, have you been in contact with someone who was confirmed or suspected to have Coronavirus / COVID-19? No / Unsure 01/17/2021 8:52 AM EDT documented as of this encounter Plan of Treatment Not on file documented as of this encounter Visit Diagnoses Not on filedocumented in this encounter Care Teams Trauma Therapist Relationship Specialty Start Date End Date Deidra Sneed DO PCP - General 12/19/15 02/02/21 Hill Felton MD [address] [place] [address] PCP - General Internal Medicine 02/03/21 02/04/21 Deidra Sneed DO PCP - General Internal Medicine 02/05/21 04/22/21 Danish Gore DO [address] [place] [address] PCP - General Internal Medicine 04/23/21 06/12/21 Vita Hale PA-C [address] [place] [address] PCP - General Internal Medicine 06/13/21 10/20/21 Rasta Syed MD [address] [place] [address] PCP - General Internal Medicine 10/21/21 07/15/22 Michelle Calderón MD [address] [place] [address] PCP - General Internal Medicine 07/16/22 07/19/22 Rasta Syed MD [address] [place] [address] PCP - General Internal Medicine 07/20/22 08/01/23 Bernardo Dorantes MD [address] [place] [address] PCP - General Internal Medicine 08/02/23 Deidra Sneed DO Internal Medicine 12/19/15 07/19/22 Paulo Meraz MD [address] [place] [address] [facility] Director Cardiovascular Disease 02/17/21 Jose Marcelo PA [address] [place] [address] Specialist Cardiology 09/08/22 Kelin Reeves NP [address] [place] [address] Cardiology 08/18/23 documented as of this encounter
--- OUTSIDE RECORDS SUMMARY | 2024-11-22 11:53 | XMS_ITS | Encounter Summary ---
Author Organization [facility] Address [address] [place] [address] Care Team Providers Care Merchant Police Name Role Phone Deidra Sneed DO Primary Care Pro vider Unavailable Deidra Sneed DO Unavailable Unavailable Hill Felton MD Primary Care Provider [phone] Deidra Sneed DO Primary Care Pro vider Unavailable Paulo Meraz MD Unavailable Danish Gore DO Primary Care Provider Sherry vailable Vita Hale PA-C Primary Care Provider U Rasta Burciaga MD Primary Care Provider [phone] Michelle Calderón MD Primary Care Provider Unavailable Rasta Syed MD Primary Care Provider [phone] Jose Marcelo Unavailable Bernardo Dorantes MD Primary Care Provider Kelin Reeves NP Unavailable [phone] Encounter Details Date Type Department Care Team Description 12/29/2019 Hospital Medical Records [address] [place] [address] Social History Tobacco Use Types Packs/Day Years [...] on filedocumented in this encounter Care Teams Merchant Police Relationship Specialty Start Date End Date Deidra Sneed DO PCP - General 12/19/15 02/02/21 Hill Felton MD [address] [place], [place] PCP - General Internal Medicine 02/03/21 02/04/21 Deidra Sneed DO PCP - General Internal Medicine 02/05/21 04/22/21 Danish Gore DO [address] [place] PCP - General Internal Medicine 04/23/21 06/12/21 Vita Hale PA-C [address] [place], [place] PCP - General Internal Medicine 06/13/21 10/20/21 Rasta Syed MD [address] [place] [address] PCP - General Internal Medicine 10/21/21 07/15/22 Michelle Calderón MD [address] [place] [address] PCP - General Internal Medicine 07/16/22 07/19/22 Rasta Syed MD [address] [place] [address] PCP - General Internal Medicine 07/20/22 08/01/23 Bernardo Dorantes MD [address] [place] [address] PCP - General Internal Medicine 08/02/23 Deidra Sneed DO Internal Medicine 12/19/15 07/19/22 Paulo Meraz MD [address] [place], [place] Corrugator Operator Helper Cardiovascular Disease 02/17/21 Jose Marcelo PA [address] [place] [address] Specialist Cardiology 09/08/22 Kelin Reeves NP [address] [place] [address] Cardiology 08/18/23 documented as of this encounter
--- OUTSIDE RECORDS SUMMARY | 2024-11-22 11:53 | XMS_ITS | Encounter Summary ---
Author Organization [facility] Address [address] [facility] [facility] [address] [place] [address] Phone Care Team Providers Care Family Consumer Science Fcs Teacher Name Role Phone Bernardo Dorantes Primary Care Provider [phone] Reason for Visit * Reason Onset Date Comments Med Refill 2021 Encounter Details Date Type Department Care Team (Late st Contact Info) Description 2021 Refill [facility] [address] [place] [id number] Dinora Choi, RN [address] [facility] [facility] [address] [place] [phone] Social History Tobacco Use Types Packs/Day Years Used Date Smoking Tobacco: Every Day Sex and Gender Information Value Date Recorded Sex Assigned at Not on file Legal Sex Male 4:41 PM EST Gender Identity Not on file Sexual Orientation Not on file documented as of this encounter Plan of Treatment Upcoming Encounters Date Type Department Care Team (Late st Contact Info) Description 12/04/2024 3:30 PM EDT Scheduled Only [facility] [address] [place] [address] [place] [phone] documented as of this encounter Visit Diagnoses Not on filedocumented in this encounter Care Teams Family Consumer Science Fcs Teacher Relationship Specialty Start Date End Date Benrardo Dorantes [address] [place] [address] PCP - General 11/06/24 documented as of this encounter
--- OUTSIDE RECORDS SUMMARY | 2024-11-22 11:53 | XMS_ITS | Encounter Summary ---
Author Organization [facility] Address [address] [place] [address] Care Team Providers Care Career Coach Name Role Phone Paulo Meraz MD Unavailable Jose Marcelo Unavailable Bernardo Dorantes MD Primary Care Provider Kelin Reeves NP Unavailable [phone] Encounter Details Date Type Department Care Team Description 11/04/2023 Hospital Medical Records [address] [place] [address] Iris Cervantes MD [address] [place] [address] [address] [place] [address] Social History Tobacco Use Types Packs/Day Years [...] on filedocumented in this encounter Care Teams Career Coach Relationship Specialty Start Date End Date Bernardo Dorantes MD [address] [place] [id number] PCP - General Internal Medicine 08/02/23 Paulo Meraz MD Cleaner Assistant Cardiovascular Disease 02/17/21 Jose Marcelo PA Specialist Cardiology 09/08/22 Kelin Reeves NP [address] [place] [address] Cardiology 08/18/23 documented as of this encounter
--- OUTSIDE RECORDS SUMMARY | 2024-11-22 11:53 | XMS_ITS | Encounter Summary ---
Author Organization [facility] Address [address] [place] [address] Care Team Providers Care Statistical Engineer Name Role Phone Deidra Sneed DO Primary Care Pro vider Unavailable Deidra Sneed DO Unavailable Unavailable Hill Felton MD Primary Care Provider [phone] Deidra Sneed DO Primary Care Pro vider Unavailable Paulo Meraz MD Unavailable Danish Gore DO Primary Care Provider Sherry vailable Vita Hale PA-C Primary Care Provider U Rasta Burciaga MD Primary Care Provider [phone] Michelle Calderón MD Primary Care Provider Unavailable Rasta Syed MD Primary Care Provider [phone] Jose Marcelo Unavailable Bernardo Dorantes MD Primary Care Provider Kelin Reeves NP Unavailable [phone] Encounter Details Date Type Department Care Team Description 02/15/2017 Acid Crane Operator Report Medical Records [address] [place] [address] Karen Jones Np Social History Tobacco Use Types Packs/Day Years [...] on filedocumented in this encounter Care Teams Statistical Engineer Relationship Specialty Start Date End Date Deidra Sneed DO PCP - General 12/19/15 02/02/21 Hill Felton MD [address] [place], [place] PCP - General Internal Medicine 02/03/21 02/04/21 Deidra Sneed DO PCP - General Internal Medicine 02/05/21 04/22/21 Danish Gore DO [address] [place], [place] PCP - General Internal Medicine 04/23/21 06/12/21 Vita Hale PA-C [address] [place], [place] PCP - General Internal Medicine 06/13/21 10/20/21 Rasta Syed MD [address] [place] [address] PCP - General Internal Medicine 10/21/21 07/15/22 Michelle Calderón MD [address] [place] [address] PCP - General Internal Medicine 07/16/22 07/19/22 Rasta Syed MD [address] [place] [address] PCP - General Internal Medicine 07/20/22 08/01/23 Bernardo Dorantes MD [address] [place] [address] PCP - General Internal Medicine 08/02/23 Deidra Sneed DO Internal Medicine 12/19/15 07/19/22 Paulo Meraz MD [address] [place] [address] Drilling Field Operator Cardiovascular Disease 02/17/21 Jose Marcelo PA [address] [place] [address] Specialist Cardiology 09/08/22 Kelin Reeves, LIMA [address] [place] [address] Cardiology 08/18/23 documented as of this encounter
--- OUTSIDE RECORDS SUMMARY | 2024-11-22 11:53 | XMS_ITS | Encounter Summary ---
Author Organization [facility] Address [address] [place] [address] Care Team Providers Care Sewer Pipe Sorter Name Role Phone Deidra Sneed DO Primary Care Pro vider Unavailable Deidra Sneed DO Unavailable Unavailable Hill Felton MD Primary Care Provider [phone] Deidra Sneed DO Primary Care Pro vider Unavailable Paulo Meraz MD Unavailable Danish Gore DO Primary Care Provider Sherry vailable Vita Hale PA-C Primary Care Provider U Rasta Burciaga MD Primary Care Provider [phone] Michelle Calderón MD Primary Care Provider Unavailable Rasta Syed MD Primary Care Provider [phone] Jose Marcelo Unavailable Bernardo Dorantes MD Primary Care Provider Kelin Reeves NP Unavailable [phone] Encounter Details Date Type Department Care Team Description 11/09/2016 Assistant Track Coach Report Medical Records [address] [place] [address] Saundra Mariee MD Social History Tobacco Use [...] on filedocumented in this encounter Care Teams Sewer Pipe Sorter Relationship Specialty Start Date End Date Deidra Sneed DO PCP - General 12/19/15 02/02/21 Hill Felton MD [address] [place], [place] PCP - General Internal Medicine 02/03/21 02/04/21 Deidra Sneed DO PCP - General Internal Medicine 02/05/21 04/22/21 Danish Gore DO [address] [place], [place] PCP - General Internal Medicine 04/23/21 06/12/21 Vita Hale PA-C [address] [place], [place] PCP - General Internal Medicine 06/13/21 10/20/21 Rasta Syed MD [address] [place] [address] PCP - General Internal Medicine 10/21/21 07/15/22 Michelle Calderón MD [address] [place] [address] PCP - General Internal Medicine 07/16/22 07/19/22 Rasta Syed MD [address] [place] [address] PCP - General Internal Medicine 07/20/22 08/01/23 Bernardo Dorantes MD [address] [place] [address] PCP - General Internal Medicine 08/02/23 Deidra Sneed DO Internal Medicine 12/19/15 07/19/22 Paulo Meraz MD [address] [place] [address] Pharmacogeneticist Cardiovascular Disease 02/17/21 Jose Marcelo PA [address] [place] [address] Specialist Cardiology 09/08/22 Kelin Reeves, LIMA [address] [place] [address] Cardiology 08/18/23 documented as of this encounter
--- OUTSIDE RECORDS SUMMARY | 2024-11-22 11:53 | XMS_ITS | Encounter Summary ---
Author Organization [facility] Address [address] [place] [address] Care Team Providers Care Inseam Trimmer Name Role Phone Deidra Sneed DO Primary Care Pro vider Unavailable Deidra Sneed DO Unavailable Unavailable Hill Felton MD Primary Care Provider [phone] Deidra Sneed DO Primary Care Pro vider Unavailable Paulo Meraz MD Unavailable Danish Goer DO Primary Care Provider Sherry vailable Vita Hale PA-C Primary Care Provider U Rasta Burciaga MD Primary Care Provider [phone] Michelle Calderón MD Primary Care Provider Unavailable Rasta Syed MD Primary Care Provider [phone] Jose Marcelo Unavailable Bernardo Dorantes MD Primary Care Provider Kelin Reeves NP Unavailable [phone] Encounter Details Date Type Department Care Team Description 03/29/2018 Hospital Medical Records [address] [place] [address] Bessy Obregon Social History Tobacco Use Types Packs/Day Years [...] filedocumented in this encounter Care Teams Inseam Trimmer Relationship Specialty Start Date End Date Deidra Sneed DO PCP - General 12/19/15 02/02/21 Hill Felton MD [address] [place], [place] PCP - General Internal Medicine 02/03/21 02/04/21 Deidra Sneed DO PCP - General Internal Medicine 02/05/21 04/22/21 Danish Gore DO [address] [place], [place] PCP - General Internal Medicine 04/23/21 06/12/21 Vita Hale PA-C [address] [place], [place] PCP - General Internal Medicine 06/13/21 10/20/21 Rasta Syed MD [address] [place] [address] PCP - General Internal Medicine 10/21/21 07/15/22 Michelle Calderón MD [address] [place] [address] PCP - General Internal Medicine 07/16/22 07/19/22 Rasta Syed MD [address] [place] [address] PCP - General Internal Medicine 07/20/22 08/01/23 Bernardo Dorantes MD [address] [place] [address] PCP - General Internal Medicine 08/02/23 Deidra Sneed DO Internal Medicine 12/19/15 07/19/22 Paulo Meraz MD [address] [place] [address] Learning Support Assistant Cardiovascular Disease 02/17/21 Jose Marcelo PA [address] [place] [address] Specialist Cardiology 09/08/22 Kelin Reeves, LIMA [address] [place] [address] Cardiology 08/18/23 documented as of this encounter
--- OUTSIDE RECORDS SUMMARY | 2024-11-22 11:53 | XMS_ITS | Encounter Summary ---
Author Organization [facility] Address [address] [place] [address] Care Team Providers Care Docking Pilot Name Role Phone Paulo Meraz MD Unavailable Jose Marcelo Unavailable Bernardo Dorantes MD Primary Care Provider Kelin Reeves NP Unavailable [phone] Encounter Details Date Type Department Care Team Description 11/07/2023 Home Health Certification Medical Records [address] [place] [address] [employer] [address] [id number] Social History Tobacco Use Types Packs/Day Years [...] on filedocumented in this encounter Care Teams Docking Pilot Relationship Specialty Start Date End Date Bernardo Dorantes MD [address] [place] [address] PCP - General Internal Medicine 08/02/23 Paulo Meraz MD Casting Inspector Cardiovascular Disease 02/17/21 Jose Marcelo PA Specialist Cardiology 09/08/22 Kelin Reeves NP [address] [place] [address] Cardiology 08/18/23 documented as of this encounter
--- OUTSIDE RECORDS SUMMARY | 2024-11-22 11:53 | XMS_ITS | Clinical Summary ---
Author Organization [facility] Address [address] [place] [address] Care Team Providers Care Soap Inspector Name Role Phone Paulo Meraz MD Unavailable Jose Marcelo Unavailable Bernardo Dorantes MD Primary Care Provider Kelin Reeves NP Unavailable [phone] Allergies No known active allergies Medications Medication Sig Dispensed Refills Start Date End Date Status tenofovir (VIREAD) 300 MG tablet Take 1 Tab by mouth once a week. 4 Tab 4 06/07/2015 Active sevelamer (RENVELA) 800 MG tablet Take 3,200 mg by mouth 3 times daily (with meals). 0 Active Maraviroc (SELZENTRY) 150 MG Tab Take 2 Tabs by mouth daily. 60 Tab 0 02/22/2018 Active Ipratropium-Albuter ol 0.5-2.5 (3) MG/3ML Solution Inhale 3 mL into the lungs 3 times daily as needed (wheezing) for up to 30 days. 120 Vial 3 11/04/2020 Active famotidine (PEPCID) 20 MG tablet Take 20 mg by mouth 2 times daily. 0 05/17/2022 Active trazodone (DESYREL) 100 MG tablet Take 1 Tablet by mouth at bedtime. 0 Active LAMIVUDINE OR Take by mouth daily. 1/2 tab daily 0 Active lidocaine-prilocain e (EMLA) cream APPLY TO AFFECTED AREA ONE HOUR PRIOR TO PROCEDURE 30 g 1 07/28/2023 Active albuterol (PROVENTIL) (2.5 MG/3ML) 0.083% nebulizer solutionIndications :Chronic obstructive pulmonary disease, unspecified COPD type ([facility]),Malignant neoplasm of lung, unspecified laterality, unspecified part of lung (HCC) TAKE 1 VIAL BY NEBULIZATION EVERY 4 HOURS NEEDED FOR WHEEZING FOR UP TO 30 DAYS. DX= J44.9 300 mL 2 07/28/2023 Active acetaminophen (TYLENOL) 325 MG tablet Take 3 Tablets by mouth as needed. 0 07/13/2023 Active clopidogrel (PLAVIX) 75 MG tabletIndications:C oronary artery disease due to calcified coronary lesion TAKE 1 TABLET BY MOUTH EVERY DAY 90 Tablet 3 08/23/2023 Active Aspirin Low Dose 81 MG EC tablet TAKE 1 TABLET BY MOUTH EVERY DAY 90 Tablet 3 09/16/2023 Active midodrine (PROAMATINE) 5 MG tablet Take one tablet by mouth twice a day on dialysis days (, and Wed) as needed for low blood pressure (less than 90/60) 90 Tablet 0 11/18/2023 Active Albuterol Sulfate 108 (90 Base) MCG/ACT AEROSOL POWDER,BREATH ACTIVATEDIndication s:Chronic obstructive pulmonary disease, unspecified COPD type ([facility]) Inhale 2 Puffs into the lungs every 4 hours as needed (wheezing) for up to 30 days. 8.5 Each 3 11/22/2023 Active budesonide-formoter ol (SYMBICORT) 80-4.5 MCG/ACT inhalerIndications: Chronic obstructive pulmonary disease, unspecified COPD type (HCC) Inhale 2 Puffs into the lungs 2 times daily for 30 days. 1 g 11 11/22/2023 Active Omeprazole 20 MG Tab EC Take 1 Tablet by mouth 2 Times Daily. 0 Active atorvastatin (LIPITOR) 80 MG tabletIndications:S /P AVR,HFrEF (heart failure with reduced ejection fraction) ([facility]),Abscess of aortic root,Nonrheumatic mitral valve regurgitation,S/P CABG x 2,ESRD on hemodialysis ([facility]),Nonsquamous nonsmall cell neoplasm of lung, unspecified laterality ([facility]),Asymptomatic HIV infection, with no history of HIV-related illness ([facility]) Take 1 Tablet by mouth daily. 90 Tablet 3 12/03/2023 Active Metoprolol Succinate 50 MG Capsule ER 24 Hour Sprinkle Take by mouth daily. 0 Active Active Problems Problem Noted Date Carotid stenosis 03/01/2024 Last Assessment & Plan: We will evaluate this further with carotid duplex and readdress as needed. Blood pressure remains well-controlled. Patient is due for an updated lipid panel. Hospital discharge follow-up 03/01/2024 Last Assessment & Plan: Hospital records reviewed; medicaitons reconciled. S/P CABG x 2 11/30/2023 Nonrheumatic mitral valve regurgitation 08/23/2023 Postsurgical aortocoronary bypass status 07/27/2023 Endocarditis 07/27/2023 Last Assessment & Plan: The patient is now status post debridement of an aortic root abscess resulting in aortic valve replacement intraoperative ITALIA in June 2023 showing evidence of 2 mitral valve masses with moderate mitral regurgitation which were thought to be client representative of mitral valve endocarditis possibly seeded by transient bacteremia on previous admission. The mitral valve was not intervened on intraoperatively and she completed a course of antibiotics at the direction of infectious disease her most recent echocardiogram completed on 06/07/2024 showed mild mitral stenosis with mild to moderate mitral regurgitation. We will continue to monitor this with serial imaging, readdressing as indicated. S/P AVR 07/12/2023 Overview: 06/29/2023 [facility] AVR with 23 mm inspiris bioprosthetic valve Abscess of aortic root 07/12/2023 Overview: 06/29/2023 [facility] Debridement of an aortic root abscess, probable endocarditis Rigid sternal plate fixation Last Assessment & Plan: The patient is now status post debridement of the aortic root abscess resulting in aortic valve replacement with 23 mm Inspiris bioprosthetic valve on 07/06/2023; there was evidence of 2 mitral valve masses with moderate mitral regurgitation on intraoperative ITALIA which was thought to be client representative of mitral valve endocarditis. The mitral valve was not intervened upon intraoperatively; she was seen in consultation by infectious disease and has completed the appropriate antibiotics at their direction. Most recent echocardiogram completed 06/07/2024 revealed a bioprosthetic aortic valve that was well-seated and functioning normally without aortic insufficiency. There was mild mitral stenosis with mild to moderate mitral regurgitation. The patient offers no new or worsening symptoms and no findings on physical exam to present concern for worsening valvular dysfunction. We will continue to monitor this with serial echocardiograms. Malignant neoplasm of overlapping sites of lung 06/16/2022 Overview: Question erosive lesion in the clavicle, following with Dr. Good, hematology oncology Anemia 05/07/2022 Unstable angina 04/22/2022 Chest pain 04/22/2022 Last Assessment & Plan: Patient presents today with complaints of ongoing and increasing frequency of chest pain over the past 2 months. He has had to use his sublingual nitroglycerin numerous times. He endorses having to take 1 to 3 tablets in order to become chest pain- free. He states that these symptoms are reminiscent of his prior NSTEMI's. He is currently chest pain-free. EKG does not suggest ischemic changes. Patient scented to the [facility] emergency room for further work-up. S/P cardiac cath 03/13/2022 Overview: Done at [facility] on 04/06/22 with ROCIO - indications: NSTEMI Done at [facility] on 02/13/22 with KM - indications: CP and CAD Done at [facility] on 12/12/21 Vomiting and diarrhea 03/13/2022 Coronary atherosclerosis of artery bypas s graft 02/04/2022 Overview: 06/29/2023 [facility] CABG x 2 (CASTRO-mid LAD, SVG diagonal) Right endoscopic vein harvest Last Assessment & Plan: Patient is status post 4 cardiac catheterizations since November 2021, with multiple interventions. He presents today expressing symptoms reminiscent of his prior NSTEMI's. He has been using his nitroglycerin daily. EKG today does not reveal any ischemic changes however does reveal a new right bundle branch block.Patient states compliance with his low-dose aspirin 81 mg, prasugrel 10 mg, metoprolol 50 mg, and Lipitor 80 mg. Upon review with Dr. Meraz, who was present in the office today and came in to the exam room to speak to patient, it was recommended for the patient to go to the [facility] emergency room for further work-up. He was currently chest pain-free while in our office. He was taken to [facility] via car. An expect was called to the emergency room. And Dr. Heard who is rounding at [facility] is aware. Coronary artery disease due to calcified coronary lesion 02/04/2022 Last Assessment & Plan: As above, the patient is most recently status post LORAINE x 2 to the RCA on 01/25/2024. She declined cardiac rehabs and remains active at home within her functional limitations. She has had inconsistent episodes of substernal chest discomfort described as a burning sensation for which she will occasionally need to use nitroglycerin x 1 which will typically resolve her symptoms; she did have a visit to the emergency room in February 2024 for similar symptoms which appear to be gastrointestinal in nature. Efe states that it is thought ongoing sympotms may be GI in nature and the patient is not overly concerned about them in relation to her cardiac history. Given that she is able to complete the same activities on different days without symptoms, this appears less concerning for an underlying ischemia. We will not make any changes to cardioprotective medical therapies; continue beta-blockade, statin, and DAPT with daily ASA and Plavix. Patient advised to seek emergency medical attention by calling 911 if they were to develop severe dyspnea, chest pain that did not resolve with rest or nitroglycerin, or if they were to faint. History of coronary angioplasty with ins ertion of stent 02/04/2022 Single pelvic kidney 10/29/2021 Overview: Malrotated left HFrEF (heart failure with reduced ejecti on fraction) 03/12/2021 Last Assessment & Plan: The patient has a history of very significant coronary artery disease status post numerous stent placements as well as CABG x 2 in 06/2023. Most recently, the patient underwent LORAINE x 2 to the RCA on 01/25/2024; EF at this time was found to be severely reduced at 23% with rest and 24% with stress. EF on previous echocardiogram 10/2022 was noted to be 35 to 40%. Despite a quick recurrence of obstructive CAD, she reported compliance with all of her medications except for having recently stopped ARB due to symptomatic hypotension. Hypotension and renal function have significantly limited our ability to titrate guideline directed medical therapies further, and she presently only remains on metoprolol for GDMT. Repeat echocardiogram completed 06/07/2024 revealed an improvement in her EF at 40 to 45%. Fortunately, the patient continues to remain well compensated and offers no symptoms concerning for underlying ischemia or heart failure; she also appears euvolemic on exam today. We will not make any changes to her current medical therapies. I've asked the patient to call if they develop worsening symptoms of heart failure such as increased shortness of breath, new or worsening cough, increased swelling in the legs or ankles, or weight gain of more than 2 pounds in one day or 4 pounds in one week. Nonsquamous nonsmall cell neoplasm of landen ng 01/17/2021 Overview: Keytruda Chronic obstructive pulmonary disease Family history of ovarian cancer 018 Hx estrogen therapy 01/16/2018 Overview: Discontinued self therapy for gender transitioning Tobacco use 01/11/2018 Umbilical hernia without obstruction and without gangrene 03/29/2017 Anxiety 02/24/2017 Noncompliance 09/13/2016 Cardiomyopathy 03/27/2016 Overview: Low EF 20% Atrial fibrillation 12/02/2015 Last Assessment & Plan: Postsurgical in nature. The patient has offered no symptoms concerning for recurrent atrial fibrillation since her CABG was completed in June 2023; amiodarone was stopped due to a drug interaction between this and her antiviral medications. She is aware to return to care for any signs or symptoms concerning for new onset atrial fibrillation. We will continue to follow this. ESRD on hemodialysis Overview: T, R , Sat; [facility] Last Assessment & Plan: Continues to follow with nephrology as recommended, dialysis 3 days weekly. HIV (human immunodeficiency virus infect ion) Essential hypertension Last Assessment & Plan: The patient's blood pressure is stable and improved from previous; she offers no symptoms concerning for hypotension. She stopped her valsartan prior to her recent hospitalization in 01/2024 as she was not tolerating it well; she now requires midodrine during dialysis sessions to maintain her blood pressure. Continue beta-blockade. Dyslipidemia Last Assessment & Plan: LDL goal for this patient is less than 70. Her most recent lipid panel was completed 03/06/2024 LDL of 29. Continue atorvastatin. Immunizations Name Administration Dates Next Due Hepatitis B-3 Dose (<19yrs) 03/04/2016,0 12/03/2015,10/17/2015,10/15,10/08/2015,09/03/2015 Influenza Flu (PT Reported) 08/05/2023,1 10/04/2021,06/07/2017,08/05,05/06/2015 MMR (Vrzarsj-Xknqx-Ejeymfl) 04/08/2018, 8 Meningococcal (Menactra) 06/07/2017,06/07/2017,0 02/15/2017 PPD-Negative Response(External) 05/30/2015 PPD-RBMG 12/18/2015 Pneumoccoccal(Adult) Polysac charide PPSV23 10/03/2015 Pneumococcal Conjugate PCV-13 08/03/2015 Shingrix (Patient reported) 08/25/2022 Tdap (Adacel) 05/18/2016 Family History Medical History Relation Name Comments No Known Problems Aunt No Known Problems Brother Hypertension Father SD Father Cancer skin Maternal Grandfather No Known Problems Maternal Grandmother Diabetes Mother Uterine Cancer Mother htn, dm2 No Known Problems Mother's side 1 skin ca Mother's side 2 grandfather No Known Problems Other No Known Problems Paternal Grandfather No Known Problems Paternal Grandmother No Known Problems Sister No Known Problems Uncle Blindness Negative Hx CA Breast Negative Hx Cataract Negative Hx Glaucoma Negative Hx Macular Degeneration Negative Hx Strabismus Negative Hx Relation Name Status Comments Aunt Brother Father Maternal Grandfather Maternal Grandmother Mother Mother's side 1 Mother's side 2 Other Paternal Grandfather Paternal Grandmother Sister Uncle Social History Tobacco Use Types Packs/Day Years Used Date Smoking Tobacco: Former Cigarettes 1 35 0 09/27/1987 - 12/2019 Smokeless Tobacco: Never Tobacco Cessation:Counseling Given: Not Answered Alcohol Use Standard Drinks/Week Comments No 0 (1 standard drink = 0.6 oz pur e alcohol) Sex Assigned at Date Recorded Not on file Job Start Date Occupation Industry Not on file Not on file Not on file Last Filed Vital Signs Vital Sign Reading Time Taken Comments Blood Pressure 122/70 06/19/2024 9:08 AM EDT Pulse 67 06/19/2024 9:08 AM EDT Temperature 36.8 ??C (98.2 ??F) 12/07/2023 3:43 PM ED T Respiratory Rate 15 12/07/2023 3:43 PM EDT Oxygen Saturation 99% 06/19/2024 9:08 AM EDT Inhaled Oxygen Concentration - - Weight 80.7 kg (178 lb) 06/19/2024 9:08 AM EDT Height 165.1 cm (5' 5 ) 06/19/2024 9:08 AM EDT Body Mass Index 29.62 06/19/2024 9:08 AM EDT Plan of Treatment Health Maintenance Due Date Last Done Comments COLON CANCER SCREENING 2022 Covid-19 Vaccine (3 2022-2 4 season) 2024 08/19/2021, 07/29/2021 INFLUENZA (#1) 2024 08/05/2023, 04/2022, 06/07/2017, Additional history exists BMI CHECK/ADVISE 09/27/2024 12/07/2023, , 09/28/2023, Additional history exists DEPRESSION SCREENING/FOLLOWUP 09/27/2024, 11/30/2022 (Completed), 02/28/2017, Additional history exists SOCIAL NEEDS SCREENING 09/27/2024 09/28/2023 BASELINE HEALTH EXAM 40-64 12/06/202512/06, 11/30/2022, 11/30/2022, Additional history exists DTAP/TDAP/TD (2 - Td or Tdap) 05/18/2026 05/18/2016 CHOLESTEROL SCREENING 12/01/2027 11/30/2022 , 11/30/2022, 01/17/2021, Additional history exists PNEUMOCOCCAL VACCINE FOR HIG H RISK PATIENTS Completed 06/13/2021, 10/03/2015, 08/03/2015 SHINGLES VACCINE Completed 08/25/2022, 07/24/2022 HEPATITIS C SCREENING Completed 11/30/2022, 023 Care Teams Soap Inspector Relationship Specialty Start Date End Date Bernardo Dorantes MD [address] [place] [id number] PCP - General Internal Medicine 08/02/23 Paulo Meraz MD Customer Development Representative Cardiovascular Disease 02/17/21 Jose Marcelo PA Specialist Cardiology 09/08/22 Kelin Reeves NP [address] [place] [id number] Cardiology 08/18/23
--- OUTSIDE RECORDS SUMMARY | 2024-11-22 11:53 | XMS_ITS | Encounter Summary ---
Author Organization [facility] Address [address] [place] [address] Care Team Providers Care Php Engineer Name Role Phone Paulo Meraz MD Unavailable Jose Marcelo Unavailable Bernardo Dorantes MD Primary Care Provider Kelin Reeves NP Unavailable [phone] Encounter Details Date Type Department Care Team Description 11/03/2023 Hospital Medical Records [address] [place] [address] [facility] Social History Tobacco Use Types Packs/Day [...] on filedocumented in this encounter Care Teams Php Engineer Relationship Specialty Start Date End Date Bernardo Dorantes MD [address] [place] [address] [id number] PCP - General Internal Medicine 08/02/23 Paulo Meraz MD Shift Production Associate Cardiovascular Disease 02/17/21 Jose Marcelo PA Specialist Cardiology 09/08/22 Kelin Reeves NP [address] [place] [address] Cardiology 08/18/23 documented as of this encounter
--- OUTSIDE RECORDS SUMMARY | 2024-11-22 11:53 | XMS_ITS | Encounter Summary ---
Author Organization [facility] Address [address] [place] [address] Care Team Providers Care Pump Tester Name Role Phone Paulo Meraz MD Unavailable Jose Marcelo Unavailable Bernardo Dorantes MD Primary Care Provider Kelin Reeves NP Unavailable [phone] Encounter Details Date Type Department Care Team Description 01/23/2024 Hospital Medical Records [address] [place] [address] Social History Tobacco Use Types Packs/Day Years [...] Date/Time Associated Diagnosis Comments OUTSIDE LAB Routine 01/28/2024 OUTSIDE EKG Routine 01/26/2024 OUTSIDE CARDIAC CATH Routine 01/25/2024 OUTSIDE NUCLEAR STRESS TEST Routine 01/24/2024 OUTSIDE EKG Routine 01/23/2024 OUTSIDE PLAIN FILM Routine 01/23/2024 documented in this encounter Results * OUTSIDE LAB (01/28/2024) Provider Abstract LAB * OUTSIDE EKG (01/26/2024) Provider Abstract CARDIOLOGY * OUTSIDE CARDIAC CATH (01/25/2024) Provider Abstract CARDIOLOGY * OUTSIDE NUCLEAR STRESS TEST (01/24/2024) Provider Abstract CARDIOLOGY * OUTSIDE PLAIN FILM (01/23/2024) Provider Abstract RADIOLOGY * OUTSIDE EKG (01/23/2024) Provider Abstract CARDIOLOGY documented in this encounter Visit Diagnoses Not on filedocumented in this encounter Care Teams Pump Tester Relationship Specialty Start Date End Date Bernardo Dorantes MD [address] [place], [place] [phone] PCP - General Internal Medicine 08/02/23 Paulo Meraz MD Relief Salesperson Cardiovascular Disease 02/17/21 Jose Marcelo PA Specialist Cardiology 09/08/22 Kelin Reeves NP [address] [place] [id number] Cardiology 08/18/23 documented as of this encounter
--- OUTSIDE RECORDS SUMMARY | 2024-11-22 11:53 | XMS_ITS | Encounter Summary ---
Author Organization [facility] Address [address] [place] [address] Care Team Providers Care Pipe Puller Name Role Phone Deidra Sneed DO Primary Care Pro vider Unavailable Deidra Sneed DO Unavailable Unavailable Hill Felton MD Primary Care Provider [phone] Deidra Sneed DO Primary Care Pro vider Unavailable Paulo Meraz MD Unavailable Danish Gore DO Primary Care Provider Sherry vailable Vita Hale PA-C Primary Care Provider U Rasta Burciaga MD Primary Care Provider [phone] Michelle Calderón MD Primary Care Provider Unavailable Rasta Syed MD Primary Care Provider [phone] Jose Marcelo Unavailable Bernardo Dorantes MD Primary Care Provider Kelin Reeves NP Unavailable [phone] Encounter Details Date Type Department Care Team Description 10/26/2016 Knowledge Analyst Report Medical Records [address] [place] [address] [facility] Smalls Social History Tobacco Use Types Packs/Day Years [...] on filedocumented in this encounter Care Teams Pipe Puller Relationship Specialty Start Date End Date Deidra Sneed DO PCP - General 12/19/15 02/02/21 Hill Felton MD [address] [place], [place] PCP - General Internal Medicine 02/03/21 02/04/21 Deidra Sneed DO PCP - General Internal Medicine 02/05/21 04/22/21 Danish Gore DO [address] [place], [place] PCP - General Internal Medicine 04/23/21 06/12/21 Vita Hale PA-C [address] [place], [place] PCP - General Internal Medicine 06/13/21 10/20/21 Rasta Syed MD [address] [place] [id number] PCP - General Internal Medicine 10/21/21 07/15/22 Michelle Calderón MD [address] [place] [address] PCP - General Internal Medicine 07/16/22 07/19/22 Rasta Syed MD [address] [place] [id number] PCP - General Internal Medicine 07/20/22 08/01/23 Bernardo Dorantes MD [address] [place] [address] PCP - General Internal Medicine 08/02/23 Deidra Sneed DO Internal Medicine 12/19/15 07/19/22 Paulo Meraz MD [address] [place] [address] Handy Man Cardiovascular Disease 02/17/21 Jose Marcelo PA [address] [place] [id number] Specialist Cardiology 09/08/22 Kelin Reeves, LIM[place] [address] [place] [address] Cardiology 08/18/23 documented as of this encounter
--- OUTSIDE RECORDS SUMMARY | 2024-11-22 11:53 | XMS_ITS | Encounter Summary ---
Author Organization [facility] Address [address] [place] [address] Care Team Providers Care Electronic Commerce Specialist Name Role Phone Paulo Meraz MD Unavailable Rasta Syed MD Primary Care Provider [phone] Jose Marcelo Unavailable Bernardo Dorantes MD Primary Care Provider Kelin Reeves NP Unavailable [phone] Encounter Details Date Type Department Care Team Description 08/16/2022 Hospital Medical Records [address] [place] [address] Nahum Ibrahim MD Social History Tobacco Use Types Packs/Day [...] on filedocumented in this encounter Care Teams Electronic Commerce Specialist Relationship Specialty Start Date End Date Rasta Syed MD [address] [place] [phone] PCP - General Internal Medicine 07/20/22 08/01/23 Bernardo Dorantes MD [address] [place] [id number] PCP - General Internal Medicine 08/02/23 Paulo Meraz MD Jewelry Mechanic Cardiovascular Disease 02/17/21 Jose Marcelo PA [address] [place] [address] [phone] Specialist Cardiology 09/08/22 Kelin Reeves NP [address] [place] [id number] Cardiology 08/18/23 documented as of this encounter
--- OUTSIDE RECORDS SUMMARY | 2024-11-22 11:53 | XMS_ITS | Encounter Summary ---
Author Organization [facility] Address [address] [place] [address] Care Team Providers Care Electrical Apprentice Name Role Phone Deidra Sneed DO Primary Care Pro vider Unavailable Deidra Sneed DO Unavailable Unavailable Hill Felton MD Primary Care Provider [phone] Deidra Sneed DO Primary Care Pro vider Unavailable Paulo Meraz MD Unavailable Danish Gore DO Primary Care Provider Sherry vailable Vita Hale PA-C Primary Care Provider U Rasta Burciaga MD Primary Care Provider [phone] Michelle Calderón MD Primary Care Provider Unavailable Rasta Syed MD Primary Care Provider [phone] Jose Marcelo Unavailable Bernardo Dorantes MD Primary Care Provider Kelin Reeves NP Unavailable [phone] Reason for Visit * Reason Comments E-prescribe Rx Request Encounter Details Date Type Department Care Team Description 10/18/2018 Refill Adult Medicine [address] [id number] Deidra Sneed DO E-prescribe Rx Request Social [...] Telephone Encounter - Deidra Sims DO - 10/18/2018 3:42 PM EST Send request to nephro. Compliance is a big problem. Nephro has been managing bp meds * Telephone Encounter - Laura Taylor M.A. - 10/18/2018 2:20 PM EST Lab Results Component Value Date NA 139 01/11/2018 K 5.4 01/11/2018 CO2 25.3 01/11/2018 CL 94 01/11/2018 BUN 79 01/11/2018 CREAT 13.3 01/11/2018 GLU 93 01/11/2018 CA 9.0 01/11/2018 GFR 4 01/11/2018 * Telephone Encounter - Kaitlynn Riggins - 10/18/2018 1:59 PM EST Patient would like script to be: E-PRESCRIBED/FAXED TO PHARMACY WHEN WAS THE PATIENT'S LAST APPOINTMENT IN ADULT MEDICINE? 04/08/18 WHEN WAS THE LAST TIME THE PATIENT SAW THEIR PCP? Same as above Does patient have an upcoming appointment? No, letter sent. (THE MEDICATION REQUESTED IS ON THE MED LIST ABOVE) All of the medications requested were on the CURRENT MEDS list Did you check the Pharmacy information above?: NO Patient wants: 30 -day supply Is this a mail order prescription request ? NO If the refill is from a FAXED refill request what is the RX # listed on the fax? N/A Patients current insurance carrier is: Payor: [facility] / Plan: [facility] / Product Type: MEDICAID RISK documented in this encounter Plan of Treatment Not on file documented as of this encounter Visit Diagnoses Not on filedocumented in this encounter Care Teams Electrical Apprentice Relationship Specialty Start Date End Date Deidra Sneed DO PCP - General 12/19/15 02/02/21 Hill Felton MD [address] [place] [address] PCP - General Internal Medicine 02/03/21 02/04/21 Deidra Sneed DO PCP - General Internal Medicine 02/05/21 04/22/21 Danish Gore DO [address] [place] [address] PCP - General Internal Medicine 04/23/21 06/12/21 Vita Hale PA-C [address] [place], [place] PCP - General Internal Medicine 06/13/21 10/20/21 Rasta Syed MD [address] [place] [address] PCP - General Internal Medicine 10/21/21 07/15/22 Michelle Calderón MD [address] [place] [address] PCP - General Internal Medicine 07/16/22 07/19/22 Rasta Syed MD [address] [place] [address] PCP - General Internal Medicine 07/20/22 08/01/23 Bernardo Dorantes MD [address] [place] [address] PCP - General Internal Medicine 08/02/23 Deidra Sneed DO Internal Medicine 12/19/15 07/19/22 Paulo Meraz MD [address] [place] [address] Auto Clutch Specialist Cardiovascular Disease 02/17/21 Jose Marcelo PA [address] [place] [address] Specialist Cardiology 09/08/22 Kelin Reeves NP [address] [place] [address] Cardiology 08/18/23 documented as of this encounter
--- OUTSIDE RECORDS SUMMARY | 2024-11-22 11:53 | XMS_ITS | Encounter Summary ---
Author Organization [facility] Address [address] [place] [address] Care Team Providers Care Military Pay Clerk Name Role Phone Paulo Meraz MD Unavailable Jose Marcelo Unavailable Bernardo Dorantes MD Primary Care Provider Kelin Reeves NP Unavailable Reason for Visit * Reason Onset Date Comments VNA Call 12/02/2023 Encounter Details Date Type Department Care Team Description 12/02/2023 Telephone Adult Medicine [address] [phone] Bernardo Dorantes MD [address] [place] [address] [phone] VNA Call Social History Tobacco Use Types [...] Miscellaneous Notes * Telephone Encounter - Bob WrightP.NLiat - 12/02/2023 12:17 PM EST MILTONI from VNA Ok to wait * Telephone Encounter - Candice Huitron - 12/02/2023 12:02 PM EST VNA CALL Which VNA office is calling? [facility] Full name of caller: Mikki The caller is A nurse Is the caller at the patients home?: NO Reason for call: Mikki is calling, pt will be discharge from nursing as of today 12/02/23 FYI forpcp Does caller need an urgent call back? NO Was CONTACT obtained above?: YES Fax #: documented in this encounter Plan of Treatment Not on file documented as of this encounter Visit Diagnoses Not on filedocumented in this encounter Care Teams Military Pay Clerk Relationship Specialty Start Date End Date Bernardo Dorantes MD [address] [place] [address] PCP - General Internal Medicine 08/02/23 Paulo Meraz MD Solar Sales Representative And Assessor Cardiovascular Disease 02/17/21 Jose Marcelo PA Specialist Cardiology 09/08/22 Kelin Reeves NP [address] [place] [address] Cardiology 08/18/23 documented as of this encounter
--- OUTSIDE RECORDS SUMMARY | 2024-11-22 11:53 | XMS_ITS | Encounter Summary ---
Author Organization [facility] Address [address] [place] [address] Care Team Providers Care Product Safety Engineer Name Role Phone Deidra Sneed DO Primary Care Pro vider Unavailable Deidra Sneed DO Unavailable Unavailable Hill Felton MD Primary Care Provider [phone] Deidra Sneed DO Primary Care Pro vider Unavailable Paulo Meraz MD Unavailable Danish Gore DO Primary Care Provider Sherry vailable Vita HaleC Primary Care Provider U Rasta Burciaga MD Primary Care Provider [phone] Michelle Calderón MD Primary Care Provider Unavailable Rasta Syed MD Primary Care Provider [phone] Jose Marcelo Unavailable Bernardo Dorantes MD Primary Care Provider Kelin Reeves NP Unavailable [phone] Reason for Referral * EXTERNAL (Routine) - Authorized/Booked Specialty Diagnoses / Procedures Referred By Contac t Referred To Contact CHIEF GAUGER / Genetics Diagnoses Family history of ovarian cancer Procedures REFERRAL TO EXTERNAL ADULT GENETIC COUNSELING-EXTERNAL Deidra Sneed DO [address] [place] [address] Genetics, [address] [address] Referral ID Status Reason Start Date Expiration Date V isits Requested Visits Authorized SEE NOTE Authorized/B ooked 11/08/2018 02/05/2019 1 1 Encounter Details Date Type Department Care Team Description 11/08/2018 Orders Only Adult Medicine [facility] Karen [address] [place] [address] Deidra Sneed DO Family history of ovarian cancer (Primary Dx) Social History Tobacco Use Types [...] as of this encounter Visit Diagnoses Diagnosis Family history of ovarian cancer- Primary Family history of malignant neoplasm of ovary documented in this encounter Care Teams Product Safety Engineer Relationship Specialty Start Date End Date Deidra Sneed DO PCP - General 12/19/15 02/02/21 Hill Felton MD [address] [place] [address] PCP - General Internal Medicine 02/03/21 02/04/21 Deidra Sneed DO PCP - General Internal Medicine 02/05/21 04/22/21 Danish Gore DO [address] [place], [place] PCP - General Internal Medicine 04/23/21 06/12/21 Vita Hale PA-C [address] [place], [place] PCP - General Internal Medicine 06/13/21 10/20/21 Rasta Syed MD [address] [place] [address] PCP - General Internal Medicine 10/21/21 07/15/22 Michelle Calderón MD [address] [place] [address] PCP - General Internal Medicine 07/16/22 07/19/22 Rasta Syed MD [address] [place] [address] PCP - General Internal Medicine 07/20/22 08/01/23 Bernardo Dorantes MD [address] [place] [address] PCP - General Internal Medicine 08/02/23 Deidra Sneed, DO Internal Medicine 12/19/15 07/19/22 Paulo Meraz MD [address] [place] [address] Poultry Eviscerator Cardiovascular Disease 02/17/21 Jose Marcelo PA [address] [place] [address] Specialist Cardiology 09/08/22 Kelin Reeves NP [address] [place] [address] Cardiology 08/18/23 documented as of this encounter
--- OUTSIDE RECORDS SUMMARY | 2024-11-22 11:53 | XMS_ITS | Encounter Summary ---
Author Organization [facility] Address [address] [place] [address] Care Team Providers Care Car Bracer Name Role Phone Deidra Sneed DO Primary Care Pro vider Unavailable Deidra Sneed DO Unavailable Unavailable Hill Felton MD Primary Care Provider [phone] Deidra Sneed DO Primary Care Pro vider Unavailable Paulo Meraz MD Unavailable Danish Gore DO Primary Care Provider Sherry vailable Vita Hale PA-C Primary Care Provider U Rasta Burciaga MD Primary Care Provider [phone] Michelle Calderón MD Primary Care Provider Unavailable Rasta Syed MD Primary Care Provider [phone] Jose Marcelo Unavailable Bernardo Dorantes MD Primary Care Provider Kelin Reeves NP Unavailable [phone] Encounter Details Date Type Department Care Team Description 01/25/2021 Hospital Medical Records [address] [place] [address] [facility] Social History Tobacco Use Types Packs/Day Years [...] on filedocumented in this encounter Care Teams Car Bracer Relationship Specialty Start Date End Date Deidra Sneed DO PCP - General 12/19/15 02/02/21 Hill Felton MD [address] [place] [address] PCP - General Internal Medicine 02/03/21 02/04/21 Deidra Sneed DO PCP - General Internal Medicine 02/05/21 04/22/21 Danish Gore DO [address] [place] [address] PCP - General Internal Medicine 04/23/21 06/12/21 Vita Hale PA-C [address] [place] [address] PCP - General Internal Medicine 06/13/21 10/20/21 Rasta Syed MD [address] [place] [address] PCP - General Internal Medicine 10/21/21 07/15/22 Michelle Calderón MD [address] [place] [address] PCP - General Internal Medicine 07/16/22 07/19/22 Rasta Syed MD [address] [place] [address] PCP - General Internal Medicine 07/20/22 08/01/23 Bernardo Dorantes MD [address] [place] [address] PCP - General Internal Medicine 08/02/23 Deidra Sneed DO Internal Medicine 12/19/15 07/19/22 Paulo Meraz MD [address] [place] [address] Travel Med Surg Rn Cardiovascular Disease 02/17/21 Jose Marcelo PA [address] [place] [address] Specialist Cardiology 09/08/22 Kelin Reeves NP [address] [place] [address] Cardiology 08/18/23 documented as of this encounter
--- OUTSIDE RECORDS SUMMARY | 2024-11-22 11:53 | XMS_ITS | Encounter Summary ---
Author Organization [facility] Address [address] [place] [address] Care Team Providers Care Blind Stitch Machine Operator Name Role Phone Deidra Sneed DO Primary Care Pro vider Unavailable Deidra Sneed DO Unavailable Unavailable Hill Felton MD Primary Care Provider [phone] Deidra Sneed DO Primary Care Pro vider Unavailable Paulo Meraz MD Unavailable Danish Gore DO Primary Care Provider Sherry vailable Vita HaleC Primary Care Provider U Rasta Burciaga MD Primary Care Provider [phone] Michelle Calderón MD Primary Care Provider Unavailable Rasta Syed MD Primary Care Provider [phone] Jose Marcelo Unavailable Bernardo Dorantes MD Primary Care Provider Kelin Reeves NP Unavailable [phone] Encounter Details Date Type Department Care Team Description 06/03/2017 Orders Only Adult Medicine [address] [phone] Deidra Sneed DO Centrilobular emphysema (HCC) (Primary Dx) Social History Tobacco Use Types [...] as of this encounter Visit Diagnoses Diagnosis Centrilobular emphysema (HCC)- Primary Other emphysema documented in this encounter Care Teams Blind Stitch Machine Operator Relationship Specialty Start Date End Date Deidra Sneed DO PCP - General 12/19/15 02/02/21 Hill Felton MD [address] [place] [address] PCP - General Internal Medicine 02/03/21 02/04/21 Deidra Sneed DO PCP - General Internal Medicine 02/05/21 04/22/21 Danish Gore DO [address] [place] [address] PCP - General Internal Medicine 04/23/21 06/12/21 Vita Hale PA-C [address] [place], [place] PCP - General Internal Medicine 06/13/21 10/20/21 Rasta Syed MD [address] [place] [address] PCP - General Internal Medicine 10/21/21 07/15/22 Michelle Calderón MD [address] [place] [address] PCP - General Internal Medicine 07/16/22 07/19/22 Rasta Syed MD [address] [place] [address] PCP - General Internal Medicine 07/20/22 08/01/23 Bernardo Dorantes MD [address] [place] [address] PCP - General Internal Medicine 08/02/23 Deidra Sneed DO Internal Medicine 12/19/15 07/19/22 Paulo Meraz MD [address] [place], [place] Radiographer Cardiac Catheterization Cardiovascular Disease 02/17/21 Jose Marcelo PA [address] [place] [address] Specialist Cardiology 09/08/22 Kelin Reeves NP [address] [place] [address] Cardiology 08/18/23 documented as of this encounter
--- OUTSIDE RECORDS SUMMARY | 2024-11-22 11:54 | XMS_ITS | Encounter Summary ---
Author Organization [facility] Address [address] [place] [address] Care Team Providers Care Liquified Natural Gas Specialist Name Role Phone Deidra Sneed DO Primary Care Pro vider Unavailable Krakosrini Colasacco, Deidra DO Primary Care Pro vider Unavailable Dede ColmarcoEnela DO Unavailable Unavailable Hill Felton MD Primary Care Provider [phone] Deidra Sneed DO Primary Care Pro vider Unavailable Paulo Meraz MD Unavailable Danish Gore DO Primary Care Provider Sherry vailable Vita Hale PA-C Primary Care Provider U Rasta Burciaga MD Primary Care Provider [phone] Michelle Calderón MD Primary Care Provider Unavailable Rasta Syed MD Primary Care Provider [phone] Jose Marcelo Unavailable Bernardo Dorantes MD Primary Care Provider Kelin Reeves NP Unavailable [phone] Reason for Referral * Non EUSEBIA (Urgent) - Authorized/Booked Specialty Diagnoses / Procedures Referred By Broderick agarwal Referred To Contact Cardiology Procedures REFERRAL TO CARDIOLOGY Deidra Sneed DO [address] [place] [address] Cardio/Karen [address] [place] [address] Referral ID Status Reason Start Date Expiration Date V isits Requested Visits Authorized [id number] Authorized/B ooked 12/02/2015 12/01/2016 1 1 Encounter Details Date Type Department Care Team Description 12/02/2015 Orders Only Adult Medicine [address] [address] Deidra Sneed DO Social History Tobacco Use Types Packs/Day Years [...] on filedocumented in this encounter Care Teams Liquified Natural Gas Specialist Relationship Specialty Start Date End Date Deidra Sneed DO PCP - General Internal Medicine 06/07/15 12/18/15 Deidra Sneed DO PCP - General 12/19/15 02/02/21 Hill Felton MD [address] [place], [place] PCP - General Internal Medicine 02/03/21 02/04/21 Deidra Sneed DO PCP - General Internal Medicine 02/05/21 04/22/21 Danish Gore DO [address] [place], [place] PCP - General Internal Medicine 04/23/21 06/12/21 Vita Hale PA-C [address] [place], [place] PCP - General Internal Medicine 06/13/21 10/20/21 Rasta Syed MD [address] [place] [address] PCP - General Internal Medicine 10/21/21 07/15/22 Michelle Calderón MD [address] [place] [address] PCP - General Internal Medicine 07/16/22 07/19/22 Rasta Syed MD [address] [place] [address] PCP - General Internal Medicine 07/20/22 08/01/23 Bernardo Dorantes MD [address] [place] [address] PCP - General Internal Medicine 08/02/23 Deidra Sneed, DO Internal Medicine 12/19/15 07/19/22 Paulo Meraz MD [address] [place] [address] Vocational Auto Body Instructor Cardiovascular Disease 02/17/21 Jose Marcelo PA [address] [place] [address] Specialist Cardiology 09/08/22 Kelin Reeves NP [address] [place] [address] [id number] Cardiology 08/18/23 documented as of this encounter
--- OUTSIDE RECORDS SUMMARY | 2024-11-22 11:54 | XMS_ITS | Encounter Summary ---
Author Organization [facility] Address [address] [place] [address] Care Team Providers Care Tray Drier Name Role Phone Deidra Sneed DO Primary Care Pro vider Unavailable Deidra Sneed DO Unavailable Unavailable Hill Felton MD Primary Care Provider [phone] Deidra Sneed DO Primary Care Pro vider Unavailable Paulo Meraz MD Unavailable Danish Gore DO Primary Care Provider Sherry vailable Vita Hale PA-C Primary Care Provider U Rasta Burciaga MD Primary Care Provider [phone] Michelle Calderón MD Primary Care Provider Unavailable Rasta Syed MD Primary Care Provider [phone] Jose Marcelo Unavailable Bernardo Dorantes MD Primary Care Provider Kelin Reeves NP Unavailable [phone] Encounter Details Date Type Department Care Team Description 06/04/2016 Biology Department Chair Report Medical Records [address] [place] [address] Social History Tobacco Use Types Packs/Day Years Used Date Smoking Tobacco: Every Day Cigarettes 1 8 Alcohol Use Standard Drinks/Week Comments Not Asked [...] on filedocumented in this encounter Care Teams Tray Drier Relationship Specialty Start Date End Date Deidra Sneed DO PCP - General 12/19/15 02/02/21 Hill Felton MD [address] [place], [place] PCP - General Internal Medicine 02/03/21 02/04/21 Deidra Sneed DO PCP - General Internal Medicine 02/05/21 04/22/21 Danish Gore DO [address] [place], [place] PCP - General Internal Medicine 04/23/21 06/12/21 Vita Hale PA-C [address] [place], [place] PCP - General Internal Medicine 06/13/21 10/20/21 Rasta Syed MD [address] [place] [address] PCP - General Internal Medicine 10/21/21 07/15/22 Michelle Calderón MD [address] [place] [address] PCP - General Internal Medicine 07/16/22 07/19/22 Rasta Syed MD [address] [place] [address] PCP - General Internal Medicine 07/20/22 08/01/23 Bernardo Dorantes MD [address] [place] [address] PCP - General Internal Medicine 08/02/23 Deidra Sneed, DO Internal Medicine 12/19/15 07/19/22 Paulo Meraz MD [address] [place] [address] Steward Racetrack Cardiovascular Disease 02/17/21 Jose Marcelo PA [address] [place] [address] Specialist Cardiology 09/08/22 Kelin Reeves NP [address] [place] [address] Cardiology 08/18/23 documented as of this encounter
--- OUTSIDE RECORDS SUMMARY | 2024-11-22 11:54 | XMS_ITS | Encounter Summary ---
Author Organization [facility] Address [address] [place] [address] Care Team Providers Care Chocolate Dipper Name Role Phone Deidra Sneed DO Unavailable Unavailable Deidra Sneed DO Primary Care Pro vider Unavailable Paulo Meraz MD Unavailable Danish Gore DO Primary Care Provider Sherry vailable Vita Hale PA-C Primary Care Provider U navailable Rasta Syed MD Primary Care Provider [phone] Michelle Calderón MD Primary Care Provider Unavailable Rasta Syed MD Primary Care Provider Jose Marcelo Unavailable Bernardo Dorantes MD Primary Care Provider Kelin Reeves NP Unavailable [phone] Encounter Details Date Type Department Care Team Description 02/17/2021 SCAN Medical Records [address] [place] [address] Abstract, Provider Pulmonary nodule Social History Tobacco Use Types Packs/Day Years [...] have Coronavirus / COVID-19? No / Unsure 02/05/2021 9:22 AM EDT documented as of this encounter Plan of Treatment Not on file documented as of this encounter Procedures Procedure Name Priority Date/Time Associated Diagnosis Comments CAT SCAN OF CHEST NO CONTRAST STAT 02/07/2021 Pulmonary nodule documented in this encounter Results * CHG DIAGNOSTIC COMPUTED TOMOGRAPHY THORAX W/O CNTRST (02/07/2021) Wayne Winters MD CT SCANS documented in this encounter Visit Diagnoses Diagnosis Pulmonary nodule Solitary pulmonary nodule documented in this encounter Care Teams Chocolate Dipper Relationship Specialty Start Date End Date Deidra Sneed DO PCP - General Internal Medicine 02/05/21 04/22/21 Danish Gore DO PCP - General Internal Medicine 04/23/21 1 Vita Hale PA-C PCP - General Internal Medicine 06/13/2110/20 Rasta Syed MD [address] [place] [address] PCP - General Internal Medicine 10/21/21 07/15/22 Demetria-Michelle Nova MD [address] [place] [address] PCP - General Internal Medicine 07/16/22 07/19/22 Rasta Syed MD [address] [place] [address] PCP - General Internal Medicine 07/20/22 08/01/23 Bernardo Dorantes MD [address] [place] [address] PCP - General Internal Medicine 08/02/23 Deidra Sneed DO Internal Medicine 12/19/15 07/19/22 Paulo Meraz MD Medical Records Director Cardiovascular Disease 02/17/21 Jose Marcelo PA [address] [place] [address] Specialist Cardiology 09/08/22 Kelin Reeves NP [address] [place] [address] Cardiology 08/18/23 documented as of this encounter
--- OUTSIDE RECORDS SUMMARY | 2024-11-22 11:54 | XMS_ITS | Encounter Summary ---
Author Organization [facility] Address [address] [place] [address] Care Team Providers Care Limehouse Worker Name Role Phone Deidra Sneed DO Unavailable Unavailable Paulo Meraz MD Unavailable Vita HaleC Primary Care Provider U Rasta Burciaga MD Primary Care Provider [phone] Michelle Calderón MD Primary Care Provider Unavailable Rasta Syed MD Primary Care Provider [phone] Jose Marcelo Unavailable Bernardo Dorantes MD Primary Care Provider Kelin Reeves NP Unavailable [phone] Encounter Details Date Type Department Care Team Description 07/02/2021 SCAN Medical Records [address] [place] [address] Nahum Aguero MD Social History Tobacco Use Types Packs/Day [...] have Coronavirus / COVID-19? No / Unsure 06/20/2021 11:04 AM EDT documented as of this encounter Plan of Treatment Not on file documented as of this encounter Procedures Procedure Name Priority Date/Time Associated Diagnosis Comments OUTSIDE CT Routine 07/02/2021 documented in this encounter Results * OUTSIDE CT (07/02/2021) Provider Abstract RADIOLOGY documented in this encounter Visit Diagnoses Not on filedocumented in this encounter Care Teams Limehouse Worker Relationship Specialty Start Date End Date Vita Hale PA-C PCP - General Internal Medicine 06/13/2110/20 Rasta Syed MD [address] [place] [address] PCP - General Internal Medicine 10/21/21 07/15/22 Michelle Calderón MD [address] [place] [address] PCP - General Internal Medicine 07/16/22 07/19/22 Rasta Syed MD [address] [place] [address] PCP - General Internal Medicine 07/20/22 08/01/23 Bernardo Dorantes MD [address] [place] [address] PCP - General Internal Medicine 08/02/23 Deidra Sneed, DO Internal Medicine 12/19/15 07/19/22 Paulo Meraz MD Community Relations Advisor Cardiovascular Disease 02/17/21 Jose Marcelo PA [address] [place] [address] Specialist Cardiology 09/08/22 Kelin Reeves NP [address] [place] [address] Cardiology 08/18/23 documented as of this encounter
--- OUTSIDE RECORDS SUMMARY | 2024-11-22 11:54 | XMS_ITS | Encounter Summary ---
Author Organization [facility] Address [address] [place] [address] Care Team Providers Care Seed Yeast Operator Name Role Phone Deidra Sneed DO Unavailable Unavailable Paulo Meraz MD Unavailable Vita Hale PA-C Primary Care Provider U Rasta Burciaga MD Primary Care Provider [phone] Michelle Calderón MD Primary Care Provider Unavailable Rasta Syed MD Primary Care Provider [phone] Jose Marcelo Unavailable Bernardo Dorantes MD Primary Care Provider Kelin Reeves NP Unavailable [phone] Reason for Visit * Reason Onset Date Comments Plug Machine Operator Feedback 06/25/2021 Orthopedics note s Encounter Details Date Type Department Care Team Description 06/25/2021 Telephone Adult Medicine - [address] [address] Vita Hale PA-C Plug Machine Operator Feedback (Orthopedics notes) Social History Tobacco Use Types Packs/Day Years [...] encounter Miscellaneous Notes * Telephone Encounter - Danish Gore DO - 06/26/2021 2:26 PM EDT Thank you for the information. My note is complete at this time. * Telephone Encounter - Velma Finney - 06/25/2021 11:26 AM EDT Good Morning, A Priority Orthopedic referral was placed for this patient with DX: Patient with multiple medical problems has marked chronic bursal swelling R; please evaluate and treat. We are working on getting this patient an appointment, could you possible complete your note from that visit and we can then call to book the patient. Thank you for your help and time, Thank you, Velma Orthopedics Navigator [phone] [facility] documented in this encounter Plan of Treatment Not on file documented as of this encounter Visit Diagnoses Not on filedocumented in this encounter Care Teams Seed Yeast Operator Relationship Specialty Start Date End Date Vita Hale PA-C PCP - General Internal Medicine 06/13/2110/20 Rasta Syed MD [address] [place] [address] PCP - General Internal Medicine 10/21/21 07/15/22 Michelle Calderón MD [address] [place] [address] PCP - General Internal Medicine 07/16/22 07/19/22 Rasta Syed MD [address] [place] [address] PCP - General Internal Medicine 07/20/22 08/01/23 Bernardo Dorantes MD [address] [place] [address] PCP - General Internal Medicine 08/02/23 Deidra Sneed, Internal Medicine 12/19/15 07/19/22 Paulo Meraz MD Parent Partner Cardiovascular Disease 02/17/21 Jose Marcelo PA [address] [place] [address] Specialist Cardiology 09/08/22 Kelin Reeves NP [address] [place] [address] Cardiology 08/18/23 documented as of this encounter
--- OUTSIDE RECORDS SUMMARY | 2024-11-22 11:54 | XMS_ITS | Encounter Summary ---
Author Organization [facility] Address [address] [place] [address] Care Team Providers Care Watch Parts Inspector Name Role Phone Deidra Sneed DO Primary Care Pro vider Unavailable Deidra Sneed DO Unavailable Unavailable Hill Felton MD Primary Care Provider [phone] Deidra Sneed DO Primary Care Pro vider Unavailable Paulo Meraz MD Unavailable Danish Gore DO Primary Care Provider Sherry vailable Vita Hale PA-C Primary Care Provider U Rasta Burciaga MD Primary Care Provider [phone] Michelle Calderón MD Primary Care Provider Unavailable Rasta Syed MD Primary Care Provider [phone] Jose Marcelo Unavailable Bernardo Dorantes MD Primary Care Provider Kelin Reeves NP Unavailable [phone] Encounter Details Date Type Department Care Team Description 07/15/2020 Candy Waffle Assembler Report Medical Records [address] [place] [address] Saundra Mariee MD Social History Tobacco Use [...] on filedocumented in this encounter Care Teams Watch Parts Inspector Relationship Specialty Start Date End Date Deidra Sneed DO PCP - General 12/19/15 02/02/21 Hill Felton MD [address] [place], [place] PCP - General Internal Medicine 02/03/21 02/04/21 Deidra Sneed DO PCP - General Internal Medicine 02/05/21 04/22/21 Danish Gore DO [address] [place], [place] PCP - General Internal Medicine 04/23/21 06/12/21 Vita Hale PA-C [address] [place], [place] PCP - General Internal Medicine 06/13/21 10/20/21 Rasta Syed MD [address] [place] [address] PCP - General Internal Medicine 10/21/21 07/15/22 Michelle Calderón MD [address] [place] [address] PCP - General Internal Medicine 07/16/22 07/19/22 Rasta Syed MD [address] [place] [address] PCP - General Internal Medicine 07/20/22 08/01/23 Bernardo Dorantes MD [address] [place] [address] PCP - General Internal Medicine 08/02/23 Deidra Sneed DO Internal Medicine 12/19/15 07/19/22 Paulo Meraz MD [address] [place] [address] Technical Sales Support Manager Cardiovascular Disease 02/17/21 Jose Marcelo PA [address] [place] [address] Specialist Cardiology 09/08/22 Kelin Reeves NP [address] [place] [address] Cardiology 08/18/23 documented as of this encounter
--- OUTSIDE RECORDS SUMMARY | 2024-11-22 11:54 | XMS_ITS | Encounter Summary ---
Author Organization [facility] Address [address] [place] [address] Care Team Providers Care Cylinder Filler Name Role Phone Deidra Sneed DO Unavailable Unavailable Deidra Sneed DO Primary Care Pro vider Unavailable Paulo Meraz MD Unavailable Danish Gore DO Primary Care Provider Sherry vailable Vita Hale PA-C Primary Care Provider U huberailable Rasta Syed MD Primary Care Provider [phone] Michelle Calderón MD Primary Care Provider Unavailable Rasta Syed MD Primary Care Provider [phone] Jose Marcelo Unavailable Bernardo Dorantes MD Primary Care Provider Kelin Reeves NP Unavailable [phone] Encounter Details Date Type Department Care Team Description 02/11/2021 [facility] Medical Records [address] [place] [address] Jairo Banuelos MD Social History Tobacco Use Types Packs/Day [...] on filedocumented in this encounter Care Teams Cylinder Filler Relationship Specialty Start Date End Date Deidra Sneed DO PCP - General Internal Medicine 02/05/21 04/22/21 Danish Gore DO PCP - General Internal Medicine 04/23/21 1 Vita Hale PA-C PCP - General Internal Medicine 06/13/2110/20 Rasta Syed MD [address] [place] [address] PCP - General Internal Medicine 10/21/21 07/15/22 Michelle Calderón MD [address] [place] [address] PCP - General Internal Medicine 07/16/22 07/19/22 Rasta Syed MD [address] [place] [address] PCP - General Internal Medicine 07/20/22 08/01/23 Bernardo Dorantes MD [address] [place] [address] PCP - General Internal Medicine 08/02/23 Deidra Sneed DO Internal Medicine 12/19/15 07/19/22 Paulo Meraz MD Buffing Wheel Former Automatic Cardiovascular Disease 02/17/21 Jose Marcelo PA [address] [place] [address] Specialist Cardiology 09/08/22 Kelin Reeves NP [address] [place] [address] Cardiology 08/18/23 documented as of this encounter
--- OUTSIDE RECORDS SUMMARY | 2024-11-22 11:54 | XMS_ITS | Encounter Summary ---
Author Organization [facility] Address [address] [place] [address] Care Team Providers Care Rivet Flunky Name Role Phone [place] Colasacco, Deidra DO Primary Care Pro vider Unavailable [place] Colasacco, Deidra DO Primary Care Pro vider Unavailable [place] Colasacco, Deidra DO Unavailable Unavailable Hill Felton MD Primary Care Provider [phone] Krak[place]ak Colasacco, Deidra DO Primary Care Pro vider Unavailable Paulo Meraz MD Unavailable Danish Gore DO Primary Care Provider Sherry vailable Vita Hale PA-C Primary Care Provider U Rasta Burciaga MD Primary Care Provider [phone] Michelle Calderón MD Primary Care Provider Unavailable Rasta Syed MD Primary Care Provider [phone] Jose Marcelo Unavailable Bernardo Dorantes MD Primary Care Provider Kelin Reeves NP Unavailable [phone] Encounter Details Date Type Department Care Team Description 08/26/2015 Sap Payroll Consultant Report Medical Records [address] [place] [address] Abstract, Provider Social History Tobacco Use Types [...] on filedocumented in this encounter Care Teams Rivet Flunky Relationship Specialty Start Date End Date Deidra Sneed DO PCP - General Internal Medicine 06/07/15 12/18/15 Deidra Sneed DO PCP - General 12/19/15 02/02/21 Hill Felton MD [address] [place] [address] PCP - General Internal Medicine 02/03/21 02/04/21 Deidra Sneed DO PCP - General Internal Medicine 02/05/21 04/22/21 Danish Gore DO [address] [place], [place] PCP - General Internal Medicine 04/23/21 06/12/21 Vita Hale PA-C [address] [place], [place] PCP - General Internal Medicine 06/13/21 10/20/21 Rasta Syed MD [address] [place] [address] PCP - General Internal Medicine 10/21/21 07/15/22 Michelle Calderón MD [address] [place] [address] PCP - General Internal Medicine 07/16/22 07/19/22 Rasta Syed MD [address] [place] [address] PCP - General Internal Medicine 07/20/22 08/01/23 Bernardo Dorantes MD [address] [place] [address] PCP - General Internal Medicine 08/02/23 Deidra Sneed, DO Internal Medicine 12/19/15 07/19/22 Paulo Meraz MD [address] [place], [place] Primary Care Nurse Cardiovascular Disease 02/17/21 Jose Marcelo PA [address] [place] [address] Specialist Cardiology 09/08/22 Kelin Reeves NP [address] [place] [address] Cardiology 08/18/23 documented as of this encounter
--- OUTSIDE RECORDS SUMMARY | 2024-11-22 11:54 | XMS_ITS | Encounter Summary ---
Author Organization [facility] Address [address] [place] [address] Care Team Providers Care Autocad Name Role Phone Deidra Sneed DO Primary Care Pro vider Unavailable Deidra Sneed DO Unavailable Unavailable Hill Felton MD Primary Care Provider [phone] Deidra Sneed DO Primary Care Pro vider Unavailable Paulo Meraz MD Unavailable Danish Gore DO Primary Care Provider Sherry vailable Vita Hale PA-C Primary Care Provider U Rasta Burciaga MD Primary Care Provider [phone] Michelle Calderón MD Primary Care Provider Unavailable Rasta Syed MD Primary Care Provider [phone] Jose Marcelo Unavailable Bernardo Dorantes MD Primary Care Provider Kelin Reeves NP Unavailable [phone] Encounter Details Date Type Department Care Team Description 01/27/2016 Bank Cashier Report Medical Records [address] [place] [address] Saundra Mariee MD Social History Tobacco Use [...] on filedocumented in this encounter Care Teams Autocad Relationship Specialty Start Date End Date Deidra Sneed DO PCP - General 12/19/15 02/02/21 Hill Felton MD [address] [place], [place] PCP - General Internal Medicine 02/03/21 02/04/21 Deidra Sneed DO PCP - General Internal Medicine 02/05/21 04/22/21 Danish Gore DO [address] [place], [place] PCP - General Internal Medicine 04/23/21 06/12/21 Vita Hale PA-C [address] [place], [place] PCP - General Internal Medicine 06/13/21 10/20/21 Rasta Syed MD [address] [place] [address] PCP - General Internal Medicine 10/21/21 07/15/22 Michelle Calderón MD [address] [place] [address] PCP - General Internal Medicine 07/16/22 07/19/22 Rasta Syed MD [address] [place] [address] PCP - General Internal Medicine 07/20/22 08/01/23 Bernardo Dorantes MD [address] [place] [address] PCP - General Internal Medicine 08/02/23 Deidra Sneed DO Internal Medicine 12/19/15 07/19/22 Paulo Meraz MD [address] [place] [address] Classroom Monitor Cardiovascular Disease 02/17/21 Jose Marcelo PA [address] [place] [address] Specialist Cardiology 09/08/22 Kelin Reeves NP [address] [place] [address] Cardiology 08/18/23 documented as of this encounter
--- OUTSIDE RECORDS SUMMARY | 2024-11-22 11:54 | XMS_ITS | Encounter Summary ---
Author Organization [facility] Address [address] [place] [address] Care Team Providers Care Construction Recruiter Name Role Phone Krakowiak Colasacco, Deidra DO Primary Care Pro vider Unavailable [place] Colasacco, Deidra DO Primary Care Pro vider Unavailable [place] Colasacco, Deidra DO Unavailable Unavailable Hill Felton MD Primary Care Provider [phone] [place] Colasacco, Deidra DO Primary Care Pro vider Unavailable Paulo Meraz MD Unavailable Danish Gore DO Primary Care Provider Sherry vailable Vita Hale PA-C Primary Care Provider U Rasta Burciaga MD Primary Care Provider [phone] Michelle Calderón MD Primary Care Provider Unavailable Rasta Syed MD Primary Care Provider [phone] Jose Marcelo Unavailable Bernardo Dorantes MD Primary Care Provider Kelin Reeves NP Unavailable [phone] Encounter Details Date Type Department Care Team Description 08/07/2015 Telecasting Technician Report Medical Records [address] [place] [address] Hair Pedersen MD Social History Tobacco Use Types Packs/Day [...] on filedocumented in this encounter Care Teams Construction Recruiter Relationship Specialty Start Date End Date Deidra Sneed DO PCP - General Internal Medicine 06/07/15 12/18/15 Deidra Sneed DO PCP - General 12/19/15 02/02/21 Hill Felton MD [address] [place] [address] PCP - General Internal Medicine 02/03/21 02/04/21 Deidra Sneed DO PCP - General Internal Medicine 02/05/21 04/22/21 Danish Gore DO [address] [place], [place] PCP - General Internal Medicine 04/23/21 06/12/21 Vita Hale PA-C [address] [place], [place] PCP - General Internal Medicine 06/13/21 10/20/21 Rasta Syed MD [address] [place] [address] PCP - General Internal Medicine 10/21/21 07/15/22 Michelle Calderón MD [address] [place] [address] PCP - General Internal Medicine 07/16/22 07/19/22 Rasta Syed MD [address] [place] [address] PCP - General Internal Medicine 07/20/22 08/01/23 Bernardo Dorantes MD [address] [place] [address] PCP - General Internal Medicine 08/02/23 Deidra Sneed, DO Internal Medicine 12/19/15 07/19/22 Paulo Meraz MD [address] [place], [place] Global Technical Writer Cardiovascular Disease 02/17/21 Jose Marcelo PA [address] [place] [address] Specialist Cardiology 09/08/22 Kelin Reeves NP [address] [place] [address] Cardiology 08/18/23 documented as of this encounter
--- OUTSIDE RECORDS SUMMARY | 2024-11-22 11:54 | XMS_ITS | Encounter Summary ---
Author Organization [facility] Address [address] [place] [address] Care Team Providers Care Motor Tune Up Specialist Name Role Phone Deidra Sneed DO Unavailable Unavailable Deidra Sneed DO Primary Care Pro vider Unavailable Paulo Meraz MD Unavailable Danish Gore DO Primary Care Provider Sherry vailable Vita Hale PA-C Primary Care Provider U navailable Rasta Syed MD Primary Care Provider [phone] Michelle Calderón MD Primary Care Provider Unavailable Rasta Syed MD Primary Care Provider [phone] Jose Marcelo Unavailable Bernardo Dorantes MD Primary Care Provider Kelin Reeves NP Unavailable [phone] Encounter Details Date Type Department Care Team Description 02/11/2021 Hospital Medical Records [address] [place] [address] Ezio Bolye MD [address] [place] [address] Social History Tobacco Use Types Packs/Day Years [...] on filedocumented in this encounter Care Teams Motor Tune Up Specialist Relationship Specialty Start Date End Date Deidra Sneed DO PCP - General Internal Medicine 02/05/21 04/22/21 Danish Gore DO PCP - General Internal Medicine 04/23/21 1 Vita Hale PA-C PCP - General Internal Medicine 06/13/2110/20 Rasta Syed MD [address] [place] [address] PCP - General Internal Medicine 10/21/21 07/15/22 Michelle Calderón MD [address] [place] [address] PCP - General Internal Medicine 07/16/22 07/19/22 Rasta Syed MD [address] [place] [address] PCP - General Internal Medicine 07/20/22 08/01/23 Bernardo Dorantes MD [address] [place] [address] PCP - General Internal Medicine 08/02/23 Deidra Sneed DO Internal Medicine 12/19/15 07/19/22 Paulo Meraz MD Draw Bench Operator Helper Cardiovascular Disease 02/17/21 Jose Marcelo PA [address] [place] [address] Specialist Cardiology 09/08/22 Kelin Reeves NP [address] [place] [address] Cardiology 08/18/23 documented as of this encounter
--- OUTSIDE RECORDS SUMMARY | 2024-11-22 11:54 | XMS_ITS | Encounter Summary ---
Author Organization [facility] Address [address] [place] [address] Care Team Providers Care Keno Clerk Name Role Phone Krakowiak Colasacco, Edidra DO Primary Care Pro vider Unavailable Krakowiak Colasacco, Deidra DO Primary Care Pro vider Unavailable Krakowiak Colasacco, Deidra DO Unavailable Unavailable Hill Felton MD Primary Care Provider [phone] Krakowiak Colasacco, Deidra DO Primary Care Pro vider Unavailable Paulo Meraz MD Unavailable Danish Gore DO Primary Care Provider Sherry vailable Vita Hale PA-C Primary Care Provider U Rasta Burciaga MD Primary Care Provider [phone] Michelle Calderón MD Primary Care Provider Unavailable Rasta Syed MD Primary Care Provider [phone] Jose Marcelo Unavailable Bernardo Dorantes MD Primary Care Provider Kelin Reeves NP Unavailable [phone] Encounter Details Date Type Department Care Team Description 08/26/2015 Ground Crew Linesman Report Medical Records [address] [place] [address] Social History Tobacco Use Types Packs/Day Years [...] on filedocumented in this encounter Care Teams Keno Clerk Relationship Specialty Start Date End Date Deidra Sneed DO PCP - General Internal Medicine 06/07/15 12/18/15 Deidra Sneed DO PCP - General 12/19/15 02/02/21 Hill Felton MD [address] [place] [address] PCP - General Internal Medicine 02/03/21 02/04/21 Deidra Sneed DO PCP - General Internal Medicine 02/05/21 04/22/21 Danish Gore DO [address] [place] [address] PCP - General Internal Medicine 04/23/21 06/12/21 Vita Hale PA-C [address] [place], [place] PCP - General Internal Medicine 06/13/21 10/20/21 Rasta Syed MD [address] [place] [address] PCP - General Internal Medicine 10/21/21 07/15/22 Michelle Calderón MD [address] [place] [address] PCP - General Internal Medicine 07/16/22 07/19/22 Rasta Syed MD [address] [place] [address] PCP - General Internal Medicine 07/20/22 08/01/23 Bernardo Dorantes MD [address] [place] [address] PCP - General Internal Medicine 08/02/23 Deidra Sneed, DO Internal Medicine 12/19/15 07/19/22 Paulo Meraz MD [address] [place] [address] Senior Java Architect Cardiovascular Disease 02/17/21 Jose Marcelo PA [address] [place] [address] Specialist Cardiology 09/08/22 Kelin Reeves NP [address] [place] [address] Cardiology 08/18/23 documented as of this encounter
--- OUTSIDE RECORDS SUMMARY | 2024-11-22 11:54 | XMS_ITS | Encounter Summary ---
Author Organization [facility] Address [address] [place] [address] Care Team Providers Care Nc Machinist Name Role Phone Krakowiak Colasacco, Deidra DO Primary Care Pro vider Unavailable Krakowiak Colasacco, Deidra DO Primary Care Pro vider Unavailable Krakowiak Colasacco, Deidra DO Unavailable Unavailable Hill Felton MD Primary Care Provider [phone] Krakowiak Colasacco, Deidra DO Primary Care Pro vider Unavailable Paulo Meraz MD Unavailable Danish Gore DO Primary Care Provider Sherry vailable Vita Hale PA-C Primary Care Provider U Rasta Burciaga MD Primary Care Provider [phone] Michelle Calderón MD Primary Care Provider Unavailable Rasta Syed MD Primary Care Provider [phone] Jose Marcelo Unavailable Bernardo Dorantes MD Primary Care Provider Kelin Reeves NP Unavailable [phone] Encounter Details Date Type Department Care Team Description 11/06/2015 Hospital Medical Records [address] [place] [address] Saundra Mariee MD Social History Tobacco Use [...] on filedocumented in this encounter Care Teams Nc Machinist Relationship Specialty Start Date End Date Deidra Sneed DO PCP - General Internal Medicine 06/07/15 12/18/15 Deidra Sneed DO PCP - General 12/19/15 02/02/21 Hill Felton MD [address] [place] [address] PCP - General Internal Medicine 02/03/21 02/04/21 Deidra Sneed DO PCP - General Internal Medicine 02/05/21 04/22/21 Danish Gore DO [address] [place] [address] PCP - General Internal Medicine 04/23/21 06/12/21 Vita Hale PA-C [address] [place] [address] PCP - General Internal Medicine 06/13/21 10/20/21 Rasta Syed MD [address] [place] [address] PCP - General Internal Medicine 10/21/21 07/15/22 Michelle Calderón MD [address] [place] [address] PCP - General Internal Medicine 07/16/22 07/19/22 Rasta Syed MD [address] [place] [address] PCP - General Internal Medicine 07/20/22 08/01/23 Bernardo Dorantes MD [address] [place] [address] PCP - General Internal Medicine 08/02/23 Deidra Sneed, DO Internal Medicine 12/19/15 07/19/22 Paulo Meraz MD [address] [place] [address] Talent Analyst Cardiovascular Disease 02/17/21 Jose Marcelo PA [address] [place] [address] Specialist Cardiology 09/08/22 Kelin Reeves NP [address] [place] [address] Cardiology 08/18/23 documented as of this encounter
--- OUTSIDE RECORDS SUMMARY | 2024-11-22 11:54 | XMS_ITS | Encounter Summary ---
Author Organization [facility] Address [address] [place] [address] Care Team Providers Care Band Instrument Maker Name Role Phone Deidra Sneed DO Primary Care Pro vider Unavailable Deidra Sneed DO Unavailable Unavailable Hill Felton MD Primary Care Provider [phone] Deidra Sneed DO Primary Care Pro vider Unavailable Paulo Meraz MD Unavailable Danish Gore DO Primary Care Provider Sherry vailable Vita Hale PA-C Primary Care Provider U Rasta Burciaga MD Primary Care Provider [phone] Michelle Calderón MD Primary Care Provider Unavailable Rasta Syed MD Primary Care Provider [phone] Jose Marcelo Unavailable Bernardo Dorantes MD Primary Care Provider Kelin Reeves NP Unavailable [phone] Encounter Details Date Type Department Care Team Description 07/02/2020 Casualty Insurance Claim Adjuster Report Medical Records [address] [place] [address] Pauol Meraz MD [address] [place] [address] [phone] Social History Tobacco Use Types Packs/Day Years [...] on filedocumented in this encounter Care Teams Band Instrument Maker Relationship Specialty Start Date End Date Deidra Sneed DO PCP - General 12/19/15 02/02/21 Hill Felton MD [address] [place] [address] PCP - General Internal Medicine 02/03/21 02/04/21 Deidra Sneed DO PCP - General Internal Medicine 02/05/21 04/22/21 Danish Gore DO [address] [place] [address] PCP - General Internal Medicine 04/23/21 06/12/21 Vita Hale PA-C [address] [place], [place] PCP - General Internal Medicine 06/13/21 10/20/21 Rasta Syed MD [address] [place] [address] PCP - General Internal Medicine 10/21/21 07/15/22 Michelle Calderón MD [address] [place] [address] PCP - General Internal Medicine 07/16/22 07/19/22 Rasta Syed MD [address] [place] [address] PCP - General Internal Medicine 07/20/22 08/01/23 Bernardo Dorantes MD [address] [place] [address] PCP - General Internal Medicine 08/02/23 Deidra Sneed, DO Internal Medicine 12/19/15 07/19/22 Paulo Meraz MD [address] [place] [address] Client Specialist Cardiovascular Disease 02/17/21 Jose Marcelo PA [address] [place] [address] Specialist Cardiology 09/08/22 Kelin Reeves NP [address] [place] [address] Cardiology 08/18/23 documented as of this encounter
--- OUTSIDE RECORDS SUMMARY | 2024-11-22 11:54 | XMS_ITS | Encounter Summary ---
Author Organization [facility] Address [address] [place] [address] Care Team Providers Care Canvas Baster Jumpbasting Name Role Phone Deidra Sneed DO Unavailable Unavailable Paulo Meraz MD Unavailable Vita HaleC Primary Care Provider U Rasta Burciaga MD Primary Care Provider [phone] Michelle Calderón MD Primary Care Provider Unavailable Rasta Syed MD Primary Care Provider [phone] Jose Marcelo Unavailable Bernardo Dorantes MD Primary Care Provider Kelin Reeves NP Unavailable [phone] Encounter Details Date Type Department Care Team Description 06/13/2021 SCAN Medical Records [address] [place] [address] Abstract, Provider Social History Tobacco Use Types [...] have Coronavirus / COVID-19? No / Unsure 06/13/2021 1:52 PM EDT documented as of this encounter Plan of Treatment Not on file documented as of this encounter Procedures Procedure Name Priority Date/Time Associated Diagnosis Comments OUTSIDE LAB Routine 06/13/2021 documented in this encounter Results * OUTSIDE LAB (06/13/2021) Provider Abstract LAB documented in this encounter Visit Diagnoses Not on filedocumented in this encounter Care Teams Canvas Baster Jumpbasting Relationship Specialty Start Date End Date Vita Hale PA-C PCP - General Internal Medicine 06/13/2110/20 Rasta Syed MD [address] [place] [address] PCP - General Internal Medicine 10/21/21 07/15/22 Demetria-Michelle Nova MD [address] [place] [address] PCP - General Internal Medicine 07/16/22 07/19/22 Rasta Syed MD [address] [place] [address] PCP - General Internal Medicine 07/20/22 08/01/23 Bernardo Dorantes MD [address] [place] [address] PCP - General Internal Medicine 08/02/23 Deidra Sneed, DO Internal Medicine 12/19/15 07/19/22 Paulo Meraz MD Blowing Engineer Cardiovascular Disease 02/17/21 Jose Marcelo PA [address] [place] [address] Specialist Cardiology 09/08/22 Kelin Reeves NP [address] [place] [address] Cardiology 08/18/23 documented as of this encounter
--- OUTSIDE RECORDS SUMMARY | 2024-11-22 11:54 | XMS_ITS | Encounter Summary ---
Author Organization [facility] Address [address] [place] [address] Care Team Providers Care Diving Instructor Name Role Phone Deidra Sneed DO Unavailable Unavailable Paulo Meraz MD Unavailable Vita HaleC Primary Care Provider U Rasta Burciaga MD Primary Care Provider [phone] Michelle Calderón MD Primary Care Provider Unavailable Rasta Syed MD Primary Care Provider [phone] Jose Marcelo Unavailable Bernardo Dorantes MD Primary Care Provider Kelin Reeves NP Unavailable [phone] Encounter Details Date Type Department Care Team Description 06/17/2021 Telephone Cardio PVCA Diag Testing [address] [facility] [address] [place], [place] [id number] Jose Marcelo PA [address] [place] [address] [id number] Social History Tobacco Use Types Packs/Day Years [...] encounter Miscellaneous Notes * Telephone Encounter - ADOLFO Ortiz - 06/17/2021 12:14 PM EDT Spoke to the patient on telephone. He is doing well, and actually admits his episodes of chest discomfort have almost completely resolved since starting the isosorbide. I told him I discussed his case with Dr. Meraz and at this time we will try to get the patient scheduled for the CTA. I also advised the patient that he could try increasing his losartan from 25 mg once a day to 50 mg once a dayto see if this will hopefully help with his ejection fraction. He knows he will go for blood work next week to ensure his potassium is not elevated. I answered his questions and concerns, he is agreeable with this plan. He will keep us posted of any changes or any issues. documented in this encounter Plan of Treatment Scheduled Orders Name Type Priority Associated Diagnoses Orde r Schedule BASIC METABOLIC PANEL Lab Routine HFrEF (heart failure with reduced ejection fraction) (HCC) Expected: 06/17/2021, Expires: 06/17/2022 documented as of this encounter Visit Diagnoses Diagnosis HFrEF (heart failure with reduced ejection fraction) (HCC)- Primary documented in this encounter Care Teams Diving Instructor Relationship Specialty Start Date End Date Vita Hale PA-C PCP - General Internal Medicine 06/13/2110/20 Rasta Syed MD [address] [place], [place] [id number] PCP - General Internal Medicine 10/21/21 07/15/22 Demetria-Michelle Nova MD [address] [place] [address] PCP - General Internal Medicine 07/16/22 07/19/22 Rasta Syed MD [address] [place] [address] PCP - General Internal Medicine 07/20/22 08/01/23 Bernardo Dorantes MD [address] [place], [place] [address] PCP - General Internal Medicine 08/02/23 Deidra Sneed, Internal Medicine 12/19/15 07/19/22 Paulo Meraz MD Environmental Emergencies Assistant Cardiovascular Disease 02/17/21 Jose Marcelo PA [address] [place] [address] Specialist Cardiology 09/08/22 Kelin Reeves NP [address] [place] [address] Cardiology 08/18/23 documented as of this encounter
--- OUTSIDE RECORDS SUMMARY | 2024-11-22 11:54 | XMS_ITS | Encounter Summary ---
Author Organization [facility] Address [address] [place] [address] Care Team Providers Care Percher Name Role Phone [place] Colasacco, Deidra DO Primary Care Pro vider Unavailable [place] Colasacco, Deidra DO Primary Care Pro vider Unavailable [place] Colasacco, Deidra DO Unavailable Unavailable Hill Felton MD Primary Care Provider [phone] Krakowiak Colasacco, Deidra DO Primary Care Pro vider Unavailable Paulo Meraz MD Unavailable Danish Gore DO Primary Care Provider Sherry vailable Vita Hale PA-C Primary Care Provider U Rasta Burciaga MD Primary Care Provider [phone] Michelle Calderón MD Primary Care Provider Unavailable Rasta Syed MD Primary Care Provider [phone] Jose Marcelo Unavailable Bernardo Dorantes MD Primary Care Provider Kelin Reeves NP Unavailable Encounter Details Date Type Department Care Team Description 08/29/2015 Orders Only Adult Medicine [address] [id number] Kraeliza AguilaroDeidra DO ESRD on dialysis (Primary Dx) Social History Tobacco Use Types [...] as of this encounter Plan of Treatment Pending Results Name Type Priority Associated Diagnoses Date /Time CARDIOVASCULAR STRESS TEST Cardiology Routine ESRD on dialysis 09/06/2015 documented as of this encounter Visit Diagnoses Diagnosis ESRD on dialysis (HCC)- Primary End stage renal disease documented in this encounter Care Teams Percher Relationship Specialty Start Date End Date Deidra Sneed DO PCP - General Internal Medicine 06/07/15 12/18/15 Deidra Sneed DO PCP - General 12/19/15 02/02/21 Hill Felton MD [address] [place] [address] PCP - General Internal Medicine 02/03/21 02/04/21 Deidra Sneed DO PCP - General Internal Medicine 02/05/21 04/22/21 Danish Gore DO [address] [place] [address] PCP - General Internal Medicine 04/23/21 06/12/21 Vita Hale PA-C [address] [place] [address] PCP - General Internal Medicine 06/13/21 10/20/21 Rasta Syed MD [address] [place] [address] PCP - General Internal Medicine 10/21/21 07/15/22 Michelle Calderón MD [address] [place] [address] PCP - General Internal Medicine 07/16/22 07/19/22 Rasta Syed MD [address] [place] [address] PCP - General Internal Medicine 07/20/22 08/01/23 Bernardo Dorantes MD [address] [place] [address] PCP - General Internal Medicine 08/02/23 Deidra Sneed DO Internal Medicine 12/19/15 07/19/22 Paulo Meraz MD [address] [place] [address] Cloud Developer Cardiovascular Disease 02/17/21 Jose Marcelo PA [address] [place] [address] Specialist Cardiology 09/08/22 Kelin Reeves NP [address] [place] [address] Cardiology 08/18/23 documented as of this encounter
--- OUTSIDE RECORDS SUMMARY | 2024-11-22 11:54 | XMS_ITS | Encounter Summary ---
Author Organization [facility] Address [address] [place] [address] Care Team Providers Care Laborer Airport Maintenance Name Role Phone Deidra Sneed DO Primary Care Pro vider Unavailable Deidra Sneed DO Unavailable Unavailable Hill Felton MD Primary Care Provider [phone] Deidra Sneed DO Primary Care Pro vider Unavailable Paulo Meraz MD Unavailable Danish Gore DO Primary Care Provider Sherry vailable Vita Hale PA-C Primary Care Provider U Rasta Burciaga MD Primary Care Provider [phone] Michelle Calderón MD Primary Care Provider Unavailable Rasta Syed MD Primary Care Provider [phone] Jose Marcelo Unavailable Bernardo Dorantes MD Primary Care Provider Kelin Reeves NP Unavailable [phone] Encounter Details Date Type Department Care Team Description 11/06/2020 Gang Hemstitching Machine Operator Report Medical Records [address] [place] [address] [facility] Social History Tobacco Use Types Packs/Day Years [...] have Coronavirus / COVID-19? No / Unsure 11/04/2020 9:54 AM EST documented as of this encounter Plan of Treatment Not on file documented as of this encounter Visit Diagnoses Not on filedocumented in this encounter Care Teams Laborer Airport Maintenance Relationship Specialty Start Date End Date Deidra Sneed DO PCP - General 12/19/15 02/02/21 Hill Felton MD [address] [place], [place] PCP - General Internal Medicine 02/03/21 02/04/21 Deidra Sneed DO PCP - General Internal Medicine 02/05/21 04/22/21 Danish Gore DO [address] [place] [address] PCP - General Internal Medicine 04/23/21 06/12/21 Vita Hale PA-C [address] [place], [place] PCP - General Internal Medicine 06/13/21 10/20/21 Rasta Syed MD [address] [place] [address] PCP - General Internal Medicine 10/21/21 07/15/22 Michelle Calderón MD [address] [place] [address] PCP - General Internal Medicine 07/16/22 07/19/22 Rasta ySed MD [address] [place] [address] PCP - General Internal Medicine 07/20/22 08/01/23 Bernardo Dorantes MD [address] [place] [address] PCP - General Internal Medicine 08/02/23 Deidra Sneed DO Internal Medicine 12/19/15 07/19/22 Paulo Meraz MD [address] [place], [place] Central Aisle Cashier Cardiovascular Disease 02/17/21 Jose Marcelo PA [address] [place] [address] Specialist Cardiology 09/08/22 Kelin Reeves NP [address] [place], [place] [id number] Cardiology 08/18/23 documented as of this encounter
--- OUTSIDE RECORDS SUMMARY | 2024-11-22 11:54 | XMS_ITS | Encounter Summary ---
Author Organization [facility] Address [address] [place] [address] Care Team Providers Care Commercial Relief Driver Name Role Phone [place] Colasacco, Deidra DO Primary Care Pro vider Unavailable [place] Colasacco, Deidra DO Primary Care Pro vider Unavailable [place] Colasacco, Deidra DO Unavailable Unavailable Hill Felton MD Primary Care Provider [phone] Krak[place] Colasacco, Deidra DO Primary Care Pro vider Unavailable Paulo Meraz MD Unavailable Danish Gore DO Primary Care Provider Sherry vailable Vita Hale PA-C Primary Care Provider U Rasta Burciaga MD Primary Care Provider [phone] Michelle Calderón MD Primary Care Provider Unavailable Rasta Syed MD Primary Care Provider [phone] Jose Marcelo Unavailable Bernardo Dorantes MD Primary Care Provider Kelin Reeves NP Unavailable [phone] Encounter Details Date Type Department Care Team Description 08/28/2015 Java Software Architect Report Medical Records [address] [place] [address] Hair Pedersen MD Social History Tobacco Use [...] filedocumented in this encounter Care Teams Commercial Relief Driver Relationship Specialty Start Date End Date Deidra Sneed DO PCP - General Internal Medicine 06/07/15 12/18/15 Deidra Sneed DO PCP - General 12/19/15 02/02/21 Hill Felton MD [address] [place] [address] PCP - General Internal Medicine 02/03/21 02/04/21 Deidra Sneed DO PCP - General Internal Medicine 02/05/21 04/22/21 Danish Gore DO [address] [place], [place] PCP - General Internal Medicine 04/23/21 06/12/21 Vita Hale PA-C [address] [place], [place] PCP - General Internal Medicine 06/13/21 10/20/21 Rasta Syed MD [address] [place] [address] PCP - General Internal Medicine 10/21/21 07/15/22 Michelle Calderón MD [address] [place] [address] PCP - General Internal Medicine 07/16/22 07/19/22 Rasta Syed MD [address] [place] [address] PCP - General Internal Medicine 07/20/22 08/01/23 Bernardo Dorantes MD [address] [place] [address] PCP - General Internal Medicine 08/02/23 Deidra Sneed, DO Internal Medicine 12/19/15 07/19/22 Paulo Meraz MD [address] [place], [place] Welder Apprentice Combination Cardiovascular Disease 02/17/21 Jose Marcelo PA [address] [place] [address] Specialist Cardiology 09/08/22 Kelin Reeves NP [address] [place] [address] Cardiology 08/18/23 documented as of this encounter
--- OUTSIDE RECORDS SUMMARY | 2024-11-22 11:54 | XMS_ITS | Encounter Summary ---
Author Organization [facility] Address [address] [place] [address] Care Team Providers Care Tool Adjuster Name Role Phone Deidra Sneed DO Primary Care Pro vider Unavailable Deidra Sneed DO Unavailable Unavailable Hill Felton MD Primary Care Provider [phone] Deidra Sneed DO Primary Care Pro vider Unavailable Paulo Meraz MD Unavailable Danish Gore DO Primary Care Provider Sherry vailable Vita Hale PA-C Primary Care Provider U Rasta Burciaga MD Primary Care Provider Michelle Calderón MD Primary Care Provider Unavailable Rasta Syed MD Primary Care Provider [phone] Jose Mareclo Unavailable Bernardo Dorantes MD Primary Care Provider Kelin Reeves NP Unavailable [phone] Reason for Visit * Reason Onset Date Comments Faxed Order 12/20/2015 Encounter Details Date Type Department Care Team Description 12/20/2015 Telephone Adult [address] [address] Deidra Sneed DO Faxed Order Social History Tobacco Use Types Packs/Day Years [...] encounter Miscellaneous Notes * Telephone Encounter - Shonda Hernandez - 12/20/2015 1:39 PM EDT Physician Summary Form/Caregiver Adult Foster Care/to Dr Aguayo for signature/ fax back to [phone] documented in this encounter Plan of Treatment Not on file documented as of this encounter Visit Diagnoses Not on filedocumented in this encounter Care Teams Tool Adjuster Relationship Specialty Start Date End Date Deidra Sneed DO PCP - General 12/19/15 02/02/21 Hill Felton MD [address] [place] [address] PCP - General Internal Medicine 02/03/21 02/04/21 Deidra Sneed DO PCP - General Internal Medicine 02/05/21 04/22/21 Danish Gore DO [address] [place], [place] PCP - General Internal Medicine 04/23/21 06/12/21 Vita Hale PA-C [address] [place], [place] PCP - General Internal Medicine 06/13/21 10/20/21 Rasta Syed MD [address] [place] [address] PCP - General Internal Medicine 10/21/21 07/15/22 Michelle Calderón MD [address] [place] [address] PCP - General Internal Medicine 07/16/22 07/19/22 Rasta Syed MD [address] [place] [address] PCP - General Internal Medicine 07/20/22 08/01/23 Bernardo Dorantes MD [address] [place] [address] PCP - General Internal Medicine 08/02/23 Deidra Sneed, DO Internal Medicine 12/19/15 07/19/22 Paulo Meraz MD [address] [place] [address] Erp Programmer Cardiovascular Disease 02/17/21 Jose Marcelo PA [address] [place] [address] Specialist Cardiology 09/08/22 Kelin Reeves NP [address] [place] [address] Cardiology 08/18/23 documented as of this encounter
--- OUTSIDE RECORDS SUMMARY | 2024-11-22 11:54 | XMS_ITS | Encounter Summary ---
Author Organization [facility] Address [address] [place] [address] Care Team Providers Care Vessel Crew Member Name Role Phone Krakowiak Colasacco, Deidra DO Primary Care Pro vider Unavailable Krakowiak Colasacco, Deidra DO Primary Care Pro vider Unavailable Krakowiak Colasacco, Deidra DO Unavailable Unavailable Hill Felton MD Primary Care Provider [phone] Krakowiak Colasacco, Deidra DO Primary Care Pro vider Unavailable Paulo Meraz MD Unavailable Danish Gore DO Primary Care Provider Sherry vailable Vita Hale PA-C Primary Care Provider U Rasta Burciaga MD Primary Care Provider [phone] Michelle Calderón MD Primary Care Provider Unavailable Rasta Syed MD Primary Care Provider [phone] Jose Marcelo Unavailable Bernardo Dorantes MD Primary Care Provider Kelin Reeves NP Unavailable Encounter Details Date Type Department Care Team Description 11/28/2015 Coal Wheeler Report Medical Records [address] [place] [address] Social History Tobacco Use Types Packs/Day Years [...] on filedocumented in this encounter Care Teams Vessel Crew Member Relationship Specialty Start Date End Date Deidra Sneed DO PCP - General Internal Medicine 06/07/15 12/18/15 Deidra Sneed DO PCP - General 12/19/15 02/02/21 Hill Felton MD [address] [place] [address] PCP - General Internal Medicine 02/03/21 02/04/21 Deidra Sneed DO PCP - General Internal Medicine 02/05/21 04/22/21 Danish Gore DO [address] [place] [address] PCP - General Internal Medicine 04/23/21 06/12/21 Vita Hale PA-C [address] [place], [place] PCP - General Internal Medicine 06/13/21 10/20/21 Rasta Syed MD [address] [place] [address] PCP - General Internal Medicine 10/21/21 07/15/22 Michelle Calderón MD [address] [place] [address] PCP - General Internal Medicine 07/16/22 07/19/22 Rasta Syed MD [address] [place] [address] PCP - General Internal Medicine 07/20/22 08/01/23 Bernardo Dorantes MD [address] [place] [address] PCP - General Internal Medicine 08/02/23 Deidra Sneed, DO Internal Medicine 12/19/15 07/19/22 Paulo Meraz MD [address] [place] [address] Linoleum Printer Cardiovascular Disease 02/17/21 Jose Marcelo PA [address] [place] [address] Specialist Cardiology 09/08/22 Kelin Reeves NP [address] [place] [address] Cardiology 08/18/23 documented as of this encounter
--- OUTSIDE RECORDS SUMMARY | 2024-11-22 11:54 | XMS_ITS | Encounter Summary ---
Author Organization [facility] Address [address] [place] [address] Care Team Providers Care Pellet Mill Operator Name Role Phone Deidra Sneed DO Unavailable Unavailable Deidra Sneed DO Primary Care Pro vider Unavailable Paulo Meraz MD Unavailable Danish Gore DO Primary Care Provider Sherry vailable Vita Hale PA-C Primary Care Provider U navailable Rasta Syed MD Primary Care Provider [phone] Michelle Calderón MD Primary Care Provider Unavailable Rasta Syed MD Primary Care Provider [phone] Jose Marcelo Unavailable Bernardo Dorantes MD Primary Care Provider Kelin Reeves NP Unavailable Encounter Details Date Type Department Care Team Description 02/25/2021 [facility] Medical Records [address] [place] [id number] [place] [address] Social History Tobacco Use Types Packs/Day Years [...] Date/Time Associated Diagnosis Comments OUTSIDE LAB Routine 02/27/2021 OUTSIDE LAB Routine 02/27/2021 OUTSIDE LAB Routine 02/26/2021 OUTSIDE EKG Routine 02/25/2021 OUTSIDE PLAIN FILM Routine 02/25/2021 documented in this encounter Results * OUTSIDE LAB (02/27/2021) Provider Abstract LAB * OUTSIDE LAB (02/27/2021) Provider Abstract LAB * OUTSIDE LAB (02/26/2021) Provider Abstract LAB * OUTSIDE PLAIN FILM (02/25/2021) Provider Abstract RADIOLOGY * OUTSIDE EKG (02/25/2021) Provider Abstract CARDIOLOGY documented in this encounter Visit Diagnoses Not on filedocumented in this encounter Care Teams Pellet Mill Operator Relationship Specialty Start Date End Date Deidra Sneed, PCP - General Internal Medicine 02/05/21 04/22/21 Danish Gore DO PCP - General Internal Medicine 04/23/21 1 Vita Hale PA-C PCP - General Internal Medicine 06/13/2110/20 Rasta Syed MD [address] [place], [place] [id number] PCP - General Internal Medicine 10/21/21 07/15/22 Michelle Calderón MD [address] [place] [address] PCP - General Internal Medicine 07/16/22 07/19/22 Rasta Syed MD [address] [place] [address] PCP - General Internal Medicine 07/20/22 08/01/23 Bernardo Dorantes MD [address] [place], [place] [address] PCP - General Internal Medicine 08/02/23 Deidra Sneed Internal Medicine 12/19/15 07/19/22 Paulo Meraz MD Composition Molder Cardiovascular Disease 02/17/21 Jose Marcelo PA [address] [place] [address] [id number] Specialist Cardiology 09/08/22 Kelin Reeves NP [address] [place] [address] Cardiology 08/18/23 documented as of this encounter
--- OUTSIDE RECORDS SUMMARY | 2024-11-22 11:54 | XMS_ITS | Encounter Summary ---
Author Organization [facility] Address [address] [place] [address] Care Team Providers Care Migratory Worker Name Role Phone Krakowiak Colasacco, Deidra DO Primary Care Pro vider Unavailable Krak[place]iak Colasacco, Deidra DO Primary Care Pro vider Unavailable Krakowiak Colasacco, Deidra DO Unavailable Unavailable Hill Felton MD Primary Care Provider [phone] Krakowiak Colasacco, Deidra DO Primary Care Pro vider Unavailable Paulo Meraz MD Unavailable Danish Gore DO Primary Care Provider Sherry vailable Vita Hale PA-C Primary Care Provider U Rasta Burciaga MD Primary Care Provider [phone] Michelle Calderón MD Primary Care Provider Unavailable Rasta Syed MD Primary Care Provider [phone] Jose Marcelo Unavailable Bernardo Dorantes MD Primary Care Provider Kelin Reeves NP Unavailable [phone] Reason for Visit * Reason Onset Date Comments Appointment-Internal Referral 09/30/2015 [facility] Encounter Details Date Type Department Care Team Description 09/30/2015 Telephone Orthopedics-[address] [id number] Alec Ribera PA Appointment-Internal Referral (Orthopedics) Social History Tobacco Use Types Packs/Day Years [...] encounter Miscellaneous Notes * Telephone Encounter - Bria Minor - 09/30/2015 12:25 PM EST Patient was referred to Orthopedics regarding: shoulder pain Patient declined appointment, per patient shoulder is fine now. Taking off from referral report. documented in this encounter Plan of Treatment Not on file documented as of this encounter Visit Diagnoses Not on filedocumented in this encounter Care Teams Migratory Worker Relationship Specialty Start Date End Date Deidra Sneed DO PCP - General Internal Medicine 06/07/15 12/18/15 Deidra Sneed DO PCP - General 12/19/15 02/02/21 Hill Felton MD [address] [place] [address] PCP - General Internal Medicine 02/03/21 02/04/21 Deidra Sneed DO PCP - General Internal Medicine 02/05/21 04/22/21 Danish Gore DO [address] [place], [place] PCP - General Internal Medicine 04/23/21 06/12/21 Vita Hale PA-C [address] [place], [place] PCP - General Internal Medicine 06/13/21 10/20/21 Rasta Syed MD [address] [place] [address] PCP - General Internal Medicine 10/21/21 07/15/22 Michelle Calderón MD [address] [place] [address] PCP - General Internal Medicine 07/16/22 07/19/22 Rasta Syed MD [address] [place] [address] PCP - General Internal Medicine 07/20/22 08/01/23 Bernardo Dorantes MD [address] [place] [address] PCP - General Internal Medicine 08/02/23 Deidra Sneed DO Internal Medicine 12/19/15 07/19/22 Paulo Meraz MD [address] [place] [address] Gift Consultant Cardiovascular Disease 02/17/21 Jose Marcelo PA [address] [place] [address] Specialist Cardiology 09/08/22 Kelin Reeves NP [address] [place] [address] Cardiology 08/18/23 documented as of this encounter
--- OUTSIDE RECORDS SUMMARY | 2024-11-22 11:54 | XMS_ITS | Encounter Summary ---
Author Organization [facility] Address [address] [place] [address] Care Team Providers Care Palliative Care Coordinator Name Role Phone Deidra Sneed DO Primary Care Pro vider Unavailable Deidra Sneed DO Unavailable Unavailable Hill Felton MD Primary Care Provider [phone] Deidra Sneed DO Primary Care Pro vider Unavailable Paulo Meraz MD Unavailable Danish Gore DO Primary Care Provider Sherry vailable Vita Hale PA-C Primary Care Provider U Rasta Burciaga MD Primary Care Provider [phone] Michelle Calderón MD Primary Care Provider Unavailable Rasta Syed MD Primary Care Provider [phone] Jose Marcelo Unavailable Bernardo Dorantes MD Primary Care Provider Kelin Reeves NP Unavailable [phone] Encounter Details Date Type Department Care Team Description 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 [address] [place] [address] Social History Tobacco Use Types Packs/Day Years [...] on filedocumented in this encounter Care Teams Palliative Care Coordinator Relationship Specialty Start Date End Date Deidra Sneed DO PCP - General 12/19/15 02/02/21 Hill Felton MD [address], [place] PCP - General Internal Medicine 02/03/21 02/04/21 Deidra Sneed DO PCP - General Internal Medicine 02/05/21 04/22/21 Danish Gore DO [address], [place] PCP - General Internal Medicine 04/23/21 06/12/21 Vita Hale PA-C [address], [place] PCP - General Internal Medicine 06/13/21 10/20/21 Rasta Syed MD [address] [place] [id number] PCP - General Internal Medicine 10/21/21 07/15/22 Michelle Calderón MD [address] [place] [address] PCP - General Internal Medicine 07/16/22 07/19/22 Rasta Syed MD [address] [place] [id number] PCP - General Internal Medicine 07/20/22 08/01/23 Bernardo Dorantes MD [address] [place] [address] PCP - General Internal Medicine 08/02/23 Deidra Sneed, DO Internal Medicine 12/19/15 07/19/22 Paulo Meraz MD [address] [place] [address] Elder Assistant Cardiovascular Disease 02/17/21 Jose Marcelo PA [address] [place] [id number] Specialist Cardiology 09/08/22 Kelin Reeves NP [address] [place] [id number] Cardiology 08/18/23 documented as of this encounter
--- OUTSIDE RECORDS SUMMARY | 2024-11-22 11:54 | XMS_ITS | Clinical Summary ---
Author Organization [facility], Address [address] [place] [address] Phone Care Team Providers Care Solar Sales Assessor Name Role Phone Bernardo Dorantes Primary Care Provider [phone] Allergies No known active allergies Medications carvedilol (COREG) 25 MG tablet Take 1 tablet by mouth 2 (two) times a day 9 Active cyclobenzaprine (FLEXERIL) 10 MG tablet Take 1 tablet by mouth 3 (three) times a day Active ergocalciferol 1.25 MG (28124 UT) capsule Comments: Filled Date: May 31 2020 4:29PM Patient Notes: take 1 tablet by mouth once every 2 weeks on WEDNESDAY. (vitamin deficiency) Duration: 90 Active lamiVUDine (EPIVIR) 100 MG tablet Take 50 mg by mouth 8 Active midodrine (PROAMATINE) 5 MG tablet Take 5 mg by mouth in the morning and 5 mg in the evening. 6 Active tenofovir disoproxil fumarate (VIREAD) 300 MG tablet Take 300 mg by mouth per week 5 Active sevelamer carbonate (RENVELA) 800 MG tablet Take 3,200 mg by mouth Active lidocaine-priloc ashley (EMLA) cream Apply topically Active ipratropium-albu terol (DUO-NEB) 0.5-2.5 mg/3 mL nebulizer solution Inhale 3 mL 1 Active Albuterol Sulfate 108 (90 Base) MCG/ACT aerosol powder Inhale 1 Active amLODIPine (NORVASC) 5 MG tablet Take 5 mg by mouth 1 (one) time each day 0 Active aspirin (ST RAUL) 81 MG EC tablet Take 81 mg by mouth 1 (one) time each day Active clopidogrel (PLAVIX) 75 MG tablet Take 75 mg by mouth 1 (one) time each day Active nitroglycerin (NITROSTAT) 0.[address] 0.4 mg under the tongue 2 Active Nutritional Supplements (Boost Glucose Control) liquid Take 7,110 mL by mouth 1 (one) time each day Take 237 ml by mouth daily 7110 mL 11 2 Active traZODone (DESYREL) 50 MG tabletIndication s:Hypertension,E nd stage renal disease (HCC),Type 2 diabetes mellitus with diabetic chronic kidney disease (HCC) Take 2 tablets (100 mg total) by mouth every night 60 tablet 4 Active Active Problems Problem Noted Date Diagnosed Date Dependence on renal dialysis 03/19/2022 Dyslipidemia 03/19/2022 History of placement of stent for coronary arter y disease 02/04/2022 Overview (03/20/2022): Done at [facility] on 02/13/22 with KM - indications: CP and CAD Done at [facility] on 12/12/21 Disorder of coronary artery 02/04/2022 Coronary atherosclerosis 02/04/2022 Pelvic kidney 10/29/2021 Overview (03/20/2022): 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 03/26/2021 Heart failure with reduced ejection fraction Primary malignant neoplasm of unknown site 03/10 Nonsquamous nonsmall cell neoplasm of lung 01/17 Overview (03/20/2022): Keytruda Chronic obstructive pulmonary disease 03/31/2019 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 History of estrogen therapy 01/16/2018 Umbilical hernia 03/29/2017 Anxiety 02/24/2017 Cardiomyopathy 03/27/2016 Atrial fibrillation 12/02/2015 End stage renal disease 06/06/2015 Anemia 05/28/2015 Centrilobular emphysema 05/28/2015 Human immunodeficiency virus infection 5 Hyperphosphatemia 05/28/2015 Hypertensive disorder 05/28/2015 Hypoalbuminemia 05/28/2015 Nephrotic syndrome 05/28/2015 Sleep disorder 05/28/2015 Vitamin D deficiency 05/28/2015 Encounters Date Type Department Care Team Description 11/21/2024 Treatment [facility] [address] [address] Rafa Garcia MD 11/14/2024 Treatment [facility] [address] [address] Rafa Garcia MD 11/09/2024 Treatment [facility] [address] [address]Katy Gray [phone] Rafa Garcia MD 10/31/2024 Treatment [facility] [address] [address] Rafa Garcia MD 10/19/2024 Orders Only [facility] [address] [address] Rafa Garcia MD 10/17/2024 Treatment [facility] [address] [address] Rafa Garcia MD 10/10/2024 Treatment [facility] [address] [address] Rafa Garcia MD 10/05/2024 Treatment [facility] [address] [address] Rafa Garcia MD 10/05/2024 Treatment [facility] [address] [place] [address] Rafa Garcia MD 09/30/2024 Treatment [facility] [address] [address] Rafa Garcia MD 09/25/2024 Treatment [facility] [address] [address] Rafa Garcia MD 09/21/2024 Treatment [facility] [address] [address] Rafa Garcia MD 09/07/2024 Treatment [facility] [address] [address] Rafa Garcia MD 08/29/2024 Treatment [facility] [address] [address] Rafa Garcia MD from Last 3 Months Family History Medical History Relation Comments Heart disease Father Stroke Father Cancer Mother Diabetes Mother Hypertension Mother Relation Status Comments Father Mother Social History Tobacco Use Types Packs/Day Years [...] on file Sexual Orientation Not on file Last Filed Vital Signs Vital Sign Reading Time Taken Comments Blood Pressure 139/90 03/20/2022 11:30 AM EDT Pulse 69 03/20/2022 11:30 AM EDT Temperature 36.3 ??C (97.4 ??F) 03/20/2022 11:30 AM E DT Respiratory Rate 16 03/20/2022 11:30 AM EDT Oxygen Saturation 98% 03/20/2022 11:30 AM EDT Inhaled Oxygen Concentration - - Weight 88.5 kg (195 lb) 03/20/2022 11:30 AM EDT Height 165.1 cm (5' 5 ) 03/20/2022 11:30 AM EDT Body Mass Index 32.45 03/20/2022 11:30 AM EDT Plan of Treatment Upcoming Encounters Date Type Department Care Team (Late st Contact Info) Description 12/04/2024 3:30 PM EDT Scheduled Only [facility] [address] [place] [address] [place] [phone] Health Maintenance Due Date Last Done Comments Hepatitis B Vaccine (1 of 5 - Risk Dialysis 4-dose series) 1992 03/04/2016, 12/03/2015, 10/17/2015, Additional history exists Pneumococcal Vaccine: Pediat rics (0 to 5 Years) and At-Risk Patients (6 to 64 Years) (3 of 3 - PPSV23 or PCV20) 10/03/2020 10/03/2015, 08/03/2015 Colorectal Cancer Screening: Annual FOBT 2021 Colorectal Cancer Screening: Colonoscopy 2021 Colorectal Cancer Screening: Sigmoidoscopy 2021 Diabetes: Hemoglobin A1C 11/16/2023 08/29/2020 Diabetes: Ophthalmology Exam 11/16/2023 01/17/2018 Diabetes: Pedal Pulse Checked 11/16/2023 Diabetes: Sensory Foot Exam 11/16/2023 Diabetes: Visual Foot Exam 11/16/2023 Influenza Vaccine (#1) 2024 Procedures Procedure Name Priority Date/Time Associated Diagnosis Comments HEMOGLOBIN AND HEMATOCRIT, BLOOD Routine 11/16/2024 3:00 AM EST HEMOGLOBIN Routine 11/09/2024 3:00 AM EST HEPATITIS B SURFACE ANTIGEN W/REFL CONFIRM Routine 11/02/2024 3:00 AM EST PTH, INTACT Routine 11/02/2024 3:00 AM EST TRANSFERRIN SATURATION Routine 3:00 AM EST PROTEIN, TOTAL, SERUM Routine 11/02/2024 3:00 AM EST ELECTROLYTE PANEL Routine 11/02/2024 3:0 0 AM EST MAGNESIUM Routine 11/02/2024 3:00 AM EST LIH (HC) Routine 11/02/2024 3:00 AM EST LACTATE DEHYDROGENASE Routine 11/02/2024 3:00 AM EST GLUCOSE, RANDOM Routine 11/02/2024 3:00 AM EST CREATININE, SERUM Routine 11/02/2024 3:0 0 AM EST BILIRUBIN, TOTAL Routine 11/02/2024 3:00 AM EST AST Routine 11/02/2024 3:00 AM EST ALT Routine 11/02/2024 3:00 AM EST ALKALINE PHOSPHATASE Routine 11/02/2024 3:00 AM EST CALCIUM PHOSPHORUS PRODUCT, ADJUSTED (HC) Routine 11/02/2024 3:00 AM EST KT/V NATURAL LOG, URR (HC) Routine 11/02/2024 3:00 AM EST CBC AND DIFFERENTIAL Routine 11/02/2024 3:00 AM EST PHOSPHATE ( PHOSPHORUS) Routine 10/26/2024 3:00 AM EST LIH (HC) Routine 10/26/2024 3:00 AM EST HEMOGLOBIN Routine 10/26/2024 3:00 AM EST HEMOGLOBIN AND HEMATOCRIT, BLOOD Routine 10/19/2024 3:00 AM EST HEPATITIS B SURFACE ANTIGEN W/REFL CONFIRM Routine 10/12/2024 3:00 AM EST ALUMINUM LEVEL Routine 10/05/2024 3:00 AM EST HEMOGLOBIN Routine 10/05/2024 3:00 AM EST CONFIRMATION TEST HCV Routine 10/05/2024 3:00 AM EST HEPATITIS C ABS W/REFLEX RNA DETECTR Routine 10/05/2024 3:00 AM EST TRANSFERRIN SATURATION Routine 3:00 AM EST URIC ACID Routine 10/05/2024 3:00 AM EST PROTEIN, TOTAL, SERUM Routine 10/05/2024 3:00 AM EST ELECTROLYTE PANEL Routine 10/05/2024 3:0 0 AM EST MAGNESIUM Routine 10/05/2024 3:00 AM EST LIPID PANEL Routine 10/05/2024 3:00 AM EST LIH (HC) Routine 10/05/2024 3:00 AM EST LACTATE DEHYDROGENASE Routine 10/05/2024 3:00 AM EST GLUCOSE, RANDOM Routine 10/05/2024 3:00 AM EST BILIRUBIN, TOTAL Routine 10/05/2024 3:00 AM EST CREATININE, SERUM Routine 10/05/2024 3:0 0 AM EST AST Routine 10/05/2024 3:00 AM EST ALT Routine 10/05/2024 3:00 AM EST ALKALINE PHOSPHATASE Routine 10/05/2024 3:00 AM EST CALCIUM PHOSPHORUS PRODUCT, ADJUSTED (HC) Routine 10/05/2024 3:00 AM EST HEPATITIS B SURFACE ANTIBODY QUANT Routine 10/05/2024 3:00 AM EST FERRITIN Routine 10/05/2024 3:00 AM EST VITAMIN D 25 HYDROXY Routine 10/05/2024 3:00 AM EST PTH, INTACT Routine 10/05/2024 3:00 AM EST KT/V NATURAL LOG, URR (HC) Routine 10/05/2024 3:00 AM EST COLLECTION DATE (HC) Routine 10/05/2024 3:00 AM EST HEPATITIS B SURFACE ANTIBODY QUANT Routine 09/14/2024 3:00 AM EST HEMOGLOBIN AND HEMATOCRIT, BLOOD Routine 09/14/2024 3:00 AM EST PROTEIN, TOTAL, SERUM Routine 08/31/2024 3:00 AM EST TRANSFERRIN SATURATION Routine 3:00 AM EST MAGNESIUM Routine 08/31/2024 3:00 AM EST ELECTROLYTE PANEL Routine 08/31/2024 3:0 0 AM EST LIH (HC) Routine 08/31/2024 3:00 AM EST LACTATE DEHYDROGENASE Routine 08/31/2024 3:00 AM EST GLUCOSE, RANDOM Routine 08/31/2024 3:00 AM EST BILIRUBIN, TOTAL Routine 08/31/2024 3:00 AM EST CREATININE, SERUM Routine 08/31/2024 3:0 0 AM EST ALT Routine 08/31/2024 3:00 AM EST AST Routine 08/31/2024 3:00 AM EST CALCIUM PHOSPHORUS PRODUCT, ADJUSTED (HC) Routine 08/31/2024 3:00 AM EST ALKALINE PHOSPHATASE Routine 08/31/2024 3:00 AM EST PTH, INTACT Routine 08/31/2024 3:00 AM EST KT/V NATURAL LOG, URR (HC) Routine 08/31/2024 3:00 AM EST CBC AND DIFFERENTIAL Routine 08/31/2024 3:00 AM EST SPECIAL CHEMISTRY Routine 08/29/2020 6:0 0 AM EST from Last 3 Months or Most Recently Relevant to Health Maintenance Results * (ABNORMAL) Hemoglobin and hematocrit (11/16/2024 3:00 AM EST) Only the most recent of3 resultswithin the time period is included. Hgb 10.3(L) 13.7 - 17.5 g/dL [facility] Hematocrit 33.3(L) 40.1 - 51.0 % [facility] Hemoglobin x 3 30.9(L) 41.1 - 52.5 g/dL [facility] 11/16/2024 3:00 AM EST 11/17/2024 1:37 PM EST us Rafa Garcia MD LAB BLOOD ORDERABLES Final Re sult [facility] [address] [place] [address] * (ABNORMAL) Hemoglobin (11/09/2024 3:00 AM EST) Only the most recent of3 resultswithin the time period is included. Hgb 9.6(L) 13.7 - 17.5 g/dL [facility] Hemoglobin x 3 28.8(L) 41.1 - 52.5 g/dL [facility] 11/09/2024 3:00 AM EST 11/10/2024 2:38 PM EST us Rafa Garcia MD LAB BLOOD ORDERABLES Final Re sult Performing Organization Address City/[facility]/ZIP Co de Phone Number [facility] [address] [place] [address] * LIH (11/02/2024 3:00 AM EST) Only the most recent of4 resultswithin the time period is included. Lipemia Normal Normal [facility] Icterus Normal Normal [facility] Hemolysis Normal Normal [facility] 11/02/2024 3:00 AM EST 11/03/2024 12:54 PM EST us Rafa Garcia MD LAB [id number] SOLICITED RESULTS Final Result Performing Organization Address [facility] de Phone Number [facility] [address] [place] [address] * (ABNORMAL) Kt/V Natural Log, URR (11/02/2024 3:00 AM EST) Only the most recent of3 resultswithin the time period is included. Pathologist [facility] Treatment Time 243 min [facility] Pre-Weight, lb 87.6 kg [facility] Post-Weight, lb 86.0 kg [facility] Ultrafiltration Rate 5 <=13 mL/kg/hr [facility] Comment: Recommend achieving Ultrafiltration Rate (UFR) <=10 mL/kg/hr References: Jared CARREON et al. Kidney Int. 2010; 79(2):250-257 BUN 80(H) 7 - 25 mg/dL [facility] BUN Post Dialysis 25 7 - 25 mg/dL [facility] UREA REDUCTION RATIO (%) 69 >=65 % [facility] Kt/V Natural Log 1.33 >=1.2 [facility] 11/02/2024 3:00 AM EST 11/03/2024 12:54 PM EST us Rafa Garcia MD LAB [id number] SOLICITED RESULTS Final Result Performing Organization Address [facility]/ZIP Co de Phone Number [facility] [address] [place] [address] * (ABNORMAL) Calcium Phosphorus Product, Adjusted (11/02/2024 3:00 AM EST) Only the most recent of3 resultswithin the time period is included. Albumin 4.1 3.6 - 5.4 g/dL [facility] Calcium 8.9 8.6 - 10.3 mg/dL [facility] Phosphorus, Serum 7.1(H) 2.5 - 5.0 mg/dL [facility] Ca*PO4 63.2(A) <55.0 mg2/dL2 [facility] Calcium, Adjusted Total 8.9 8.6 - 10.3 mg/dL [facility] CA*PO4 CORRCTD 63.2(A) <55.0 mg2/dL2 [facility] 11/02/2024 3:00 AM EST 11/03/2024 12:54 PM EST Rafa Garcia MD LAB [id number] SOLICITED RESULTS Final Result Performing Organization Address [facility] de Phone Number [facility] [address] [place] [address] * Hepatitis B Surface Ag w/Reflex Confirmation (11/02/2024 3:00 AM EST) Only the most recent of2 resultswithin the time period is included. Hep B Surface Antigen Negative Negative [facility] 11/02/2024 3:00 AM EST 11/03/2024 12:54 PM EST Rafa Garcia MD LAB BLOOD ORDERABLES Final Re sult Performing Organization Address [facility] Co de Phone Number [facility] [address] [place] [address] * (ABNORMAL) TSAT (11/02/2024 3:00 AM EST) Only the most recent of3 resultswithin the time period is included. Iron 54(L) 65 - 175 ug/dL [facility] Transferrin 178(L) 215 - 365 mg/dL [facility] TIBC 249 211 - 406 ug/dL [facility] Iron Saturation (TSat) 22 22 - 52 % [facility] 11/02/2024 3:00 AM EST 11/03/2024 12:54 PM EST Rafa Garcia MD LAB BLOOD ORDERABLES Final Re sult [facility] [address] [place] [address] * (ABNORMAL) CBC and Differential (11/02/2024 3:00 AM EST) Only the most recent of2 resultswithin the time period is included. DIFFERENTIAL MANUAL, 2 Not Indicated [facility] White Blood Cells 6.1 4.2 - 9.1 K/uL [facility] RBC 2.98(L) 4.63 - 6.08 M/uL [facility] Hgb 9.3(L) 13.7 - 17.5 g/dL [facility] Hemoglobin x 3 27.9(L) 41.1 - 52.5 g/dL [facility] Hematocrit 29.3(L) 40.1 - 51.0 % [facility] MCV 98.3(H) 79.0 - 92.2 fL [facility] MCH 31.2 25.7 - 32.2 pg [facility] MCHC 31.7(L) 32.3 - 36.5 g/dL [facility] Platelets 214 163 - 337 K/uL [facility] RDW 16.5(H) 11.6 - 14.4 % [facility] Neutrophils Relative 46.1 34.0 - 67.9 % [facility] Lymphocytes Relative 36.8 21.8 - 53.1 % [facility] Monocytes 12.4(H) 5.3 - 12.2 % [facility] Eosinophils Relative 2.6 0.8 - 7.0 % [facility] Basophils Relative 0.8 0.2 - 1.2 % [facility] Immature Granulocytes 1.3(H) 0.0 - 1.0 % [facility] 11/02/2024 3:00 AM EST 11/03/2024 1:05 PM EST Rafa Garcia MD LAB BLOOD ORDERABLES Final Re sult Performing Organization Address [facility] Co de Phone Number [facility] [address] [place] [address] * ALT (11/02/2024 3:00 AM EST) Only the most recent of3 resultswithin the time period is included. ALT (SGPT) 11 10 - 49 U/L [facility] 11/02/2024 3:00 AM EST 11/03/2024 12:54 PM EST Rafa Garcia MD LAB BLOOD ORDERABLES Final Re sult Performing Organization Address [facility] de Phone Number [facility] [address] [place] [address] * AST (11/02/2024 3:00 AM EST) Only the most recent of3 resultswithin the time period is included. AST (SGOT) 12 <34 U/L [facility] 11/02/2024 3:00 AM EST 11/03/2024 12:54 PM EST Rafa Garcia MD LAB BLOOD ORDERABLES Final Re sult Performing Organization Address [facility] de Phone Number [facility] [address] [place] [address] * Protein, total (11/02/2024 3:00 AM EST) Only the most recent of3 resultswithin the time period is included. Total Protein 7.3 6.4 - 8.9 g/dL [facility] 11/02/2024 3:00 AM EST 11/03/2024 12:54 PM EST Rafa Garcia MD LAB BLOOD ORDERABLES Final Re sult Performing Organization Address [facility] Co de Phone Number [facility] [address] [place] [address] * (ABNORMAL) Alkaline phosphatase (11/02/2024 3:00 AM EST) Only the most recent of3 resultswithin the time period is included. Alkaline Phosphatase 173(H) 46 - 116 U/L [facility] 11/02/2024 3:00 AM EST 11/03/2024 12:54 PM EST Rafa Garcia MD LAB BLOOD ORDERABLES Final Re sult Performing Organization Address [facility] Co de Phone Number [facility] [address] [place] [address] * (ABNORMAL) PTH, Intact (11/02/2024 3:00 AM EST) Only the most recent of3 resultswithin the time period is included. PTH, Intact 792(H) 160 - 721 pg/mL [facility] Comment: Suggested (KDIGO) ESRD maintenance range is two to nine times the upper normal limit (80.1 pg/mL) for the laboratory. 11/02/2024 3:00 AM EST 11/03/2024 12:54 PM EST Rafa Garcia MD LAB BLOOD ORDERABLES Final Re sult Performing Organization Address [facility] Co de Phone Number [facility] [address] [place] [address] * Magnesium (11/02/2024 3:00 AM EST) Only the most recent of3 resultswithin the time period is included. Magnesium 2.2 1.9 - 2.7 mg/dL [facility] 11/02/2024 3:00 AM EST 11/03/2024 12:54 PM EST Rafa Garcia MD LAB BLOOD ORDERABLES Final Re sult Performing Organization Address [facility] Co de Phone Number [facility] [address] [place] [address] * Lactate dehydrogenase (11/02/2024 3:00 AM EST) Only the most recent of3 resultswithin the time period is included. LDH 210 120 - 246 U/L [facility] 11/02/2024 3:00 AM EST 11/03/2024 12:54 PM EST Rafa Garcia MD LAB BLOOD ORDERABLES Final Re sult Performing Organization Address [facility] de Phone Number [facility] [address] [place] [address] * Glucose, random (11/02/2024 3:00 AM EST) Only the most recent of3 resultswithin the time period is included. Glucose 106 74 - 109 mg/dL [facility] 11/02/2024 3:00 AM EST 11/03/2024 12:54 PM EST Rafa Garcia MD LAB BLOOD ORDERABLES Final Re sult Performing Organization Address [facility] de Phone Number [facility] [address] [place] [address] * (ABNORMAL) Creatinine, serum (11/02/2024 3:00 AM EST) Only the most recent of3 resultswithin the time period is included. Creatinine 9.20(H) 0.70 - 1.30 mg/dL [facility] 11/02/2024 3:00 AM EST 11/03/2024 12:54 PM EST Rafa Garcia MD LAB BLOOD ORDERABLES Final Re sult Performing Organization Address [facility] de Phone Number [facility] [address] [place] [address] * (ABNORMAL) Bilirubin, total (11/02/2024 3:00 AM EST) Only the most recent of3 resultswithin the time period is included. Total Bilirubin <0.2(L) 0.3 - 1.2 mg/dL [facility] 11/02/2024 3:00 AM EST 11/03/2024 12:54 PM EST Rafa Garcia MD LAB BLOOD ORDERABLES Final Re sult Performing Organization Address [facility] de Phone Number [facility] [address] [place] [address] * (ABNORMAL) Electrolyte panel (11/02/2024 3:00 AM EST) Only the most recent of3 resultswithin the time period is included. Sodium 140 136 - 145 mEq/L [facility] Potassium 5.6(H) 3.4 - 5.0 mEq/L [facility] Chloride 105 98 - 107 mEq/L [facility] Bicarbonate (CO2) 23 21 - 31 mEq/L [facility] Anion Gap 12 3 - 14 mEq/L [facility] 11/02/2024 3:00 AM EST 11/03/2024 12:54 PM EST Rafa Garcia MD LAB BLOOD ORDERABLES Final Re sult Performing Organization Address [facility] de Phone Number [facility] [address] [place] [address] * (ABNORMAL) Phosphorus (10/26/2024 3:00 AM EST) Pathologist [facility] Phosphorus, Serum 6.1(H) 2.5 - 5.0 mg/dL [facility] 10/26/2024 3:00 AM EST 10/27/2024 12:07 PM EST Rafa Garcia MD LAB BLOOD ORDERABLES Final Re sult Performing Organization Address [facility] de Phone Number [facility] [address] [place] [address] * Confirmation Test HCV (10/05/2024 3:00 AM EST) Pathologist [facility] Hep C Ab Confirmation Not needed [facility] 10/05/2024 3:00 AM EST 10/09/2024 1:22 PM EST Rafa Garcia MD LAB BLOOD ORDERABLES Final Re sult Performing Organization Address [facility] de Phone Number [facility] [address] [place] [address] * Collection Date (10/05/2024 3:00 AM EST) Collection Date See Comment [facility] Comment: Patient sample received may exceed specimen stability, based on the collection date electronically provided. ??When reviewing patient results, verify collection information and consider specimen stability before acting on any critical or panic results. 10/05/2024 3:00 AM EST Rafa Garcia MD LAB [id number] SOLICITED RESULTS Final Result Performing Organization Address [facility] de Phone Number [facility] [address] [place] [address] * HEPATITIS C ABS W/REFLEX RNA DETECTR (10/05/2024 3:00 AM EST) Pathologist [facility] Hep C Virus Ab Non-Reacti ve Non-Reacti ve [facility] 10/05/2024 3:00 AM EST 10/09/2024 1:15 PM EST Rafa Garcia MD LAB [id number] SOLICITED RESULTS Final Result Performing Organization Address [facility] de Phone Number [facility] [address] [place] [address] * Aluminum level (10/05/2024 3:00 AM EST) Pathologist [facility] Aluminum 4 1 - 20 ug/L [facility] 10/05/2024 3:00 AM EST 10/09/2024 1:20 PM EST Rafa Garcia MD LAB BLOOD ORDERABLES Final Re sult Performing Organization Address [facility] de Phone Number [facility] [address] [place] [address] * Vitamin D 25 Hydroxy (10/05/2024 3:00 AM EST) Vitamin D, 25-Hydroxy 27 30 - 100 ng/mL [facility] Comment: Status ? Adult ?? Pediatric Deficient: ? <20 ? <15 Insufficient: ??20-29 ?? 15-19 Sufficient: ?30-100 ??20-100 10/05/2024 3:00 AM EST 10/09/2024 1:15 PM EST Rafa Garcia MD LAB BLOOD ORDERABLES Final Re sult Performing Organization Address [facility] de Phone Number [facility] [address] [place] [address] * (ABNORMAL) Hepatitis B Surface Antibody (10/05/2024 3:00 AM EST) Only the most recent of2 resultswithin the time period is included. Hep B Surface Antibody 9(A) mIU/mL [facility] Comment: Interpretation: <10: No Immunity >=10: Probable Immunity 10/05/2024 3:00 AM EST 10/09/2024 1:15 PM EST Rafa Garcia MD LAB BLOOD ORDERABLES Final Re sult Performing Organization Address [facility] de Phone Number [facility] [address] [place] [address] * Uric Acid (10/05/2024 3:00 AM EST) Uric Acid 6.9 4.4 - 7.6 mg/dL [facility] 10/05/2024 3:00 AM EST 10/09/2024 1:15 PM EST Rafa Garcia MD LAB BLOOD ORDERABLES Final Re sult Performing Organization Address [facility] de Phone Number [facility] [address] [place] [address] * (ABNORMAL) Ferritin (10/05/2024 3:00 AM EST) Ferritin 636(H) 22 - 322 ng/mL [facility] 10/05/2024 3:00 AM EST 10/09/2024 1:15 PM EST us Rafa Garcia MD LAB BLOOD ORDERABLES Final Re sult [facility] [address] [place] [address] * (ABNORMAL) Lipid panel (10/05/2024 3:00 AM EST) Cholesterol 100 <200 mg/dL [facility] Comment: Optimal: ?<200 Borderline: ? 200-239 Higher Risk: ?>239 Triglycerides 202(A) <150 mg/dL [facility] Comment: Optimal: ?<150 Borderline High: ??150-199 High: ? 200-499 Very High: ?>499 HDL 22(A) >59 mg/dL [facility] Comment: Desirable: ?>59 Higher Risk: ?<40 LDL-Calc 38 <100 mg/dL [facility] Comment: Optimal: ?<100 Above Optimal: ?100-129 Borderline High: ??130-159 High: ? 160-189 Very High: ?>189 VLDL Cholesterol Julian 40(A) <30 mg/dL [facility] Comment: Optimal: ?<30 Borderline High: ??30-39 High: ? 40-99 Very High: ?>99 Chol/HDL Ratio 4.5(A) <3.3 [facility] Comment: Optimal: ?<3.3 Higher Risk: ?>6.2 10/05/2024 3:00 AM EST 10/09/2024 1:15 PM EST us Rafa Garcia MD LAB BLOOD ORDERABLES Final Re sult APS SHEILA Gonzalez [address] [place] [address] * SPECIAL CHEMISTRY (08/29/2020 6:00 AM EST) Panel Comments Specimen source: Blood APS SPECTRA PVNMA Hemoglobin A1C 5.2 4.8 - 5.9 % [facility] 08/29/2020 6:00 AM EST us López Murrieta MD LAB BLOOD BANK TEST ORDERABLES F inal Result [facility] from Last 3 Months or Most Recently Relevant to Health Maintenance Insurance [id number] MEDICAID [id number] [place] [id number] [facility] [place] [place] [facility] MEDICAID Care Teams Solar Sales Assessor Relationship Specialty Start Date End Date Bernardo Dorantes [address] [place] [address] PCP - General 11/06/24
--- OUTSIDE RECORDS SUMMARY | 2024-11-22 11:54 | XMS_ITS | Encounter Summary ---
Author Organization [facility] Address [address] [place] [address] Care Team Providers Care Hammer Operator Name Role Phone Deidra Sneed DO Primary Care Pro vider Unavailable Deidra Sneed DO Unavailable Unavailable Hill Felton MD Primary Care Provider [phone] Deidra Sneed DO Primary Care Pro vider Unavailable Paulo Meraz MD Unavailable Danish Gore DO Primary Care Provider Sherry vailable Vita Hale PA-C Primary Care Provider U Rasta Burciaga MD Primary Care Provider [phone] Michelle Calderón MD Primary Care Provider Unavailable Rasta Syed MD Primary Care Provider [phone] Jose Marcelo Unavailable Bernardo Dorantes MD Primary Care Provider Kelin Reeves NP Unavailable [phone] Encounter Details Date Type Department Care Team Description 03/05/2016 Urogynecology Physician Report Medical Records [address] [place] [address] Miguelina Borrero MD Social History Tobacco Use [...] on filedocumented in this encounter Care Teams Hammer Operator Relationship Specialty Start Date End Date Deidra Sneed DO PCP - General 12/19/15 02/02/21 Hill Felton MD [address] [place], [place] PCP - General Internal Medicine 02/03/21 02/04/21 Deidra Sneed DO PCP - General Internal Medicine 02/05/21 04/22/21 Danish Gore DO [address], [place] PCP - General Internal Medicine 04/23/21 06/12/21 Vita Hale PA-C [address] [place] [address] PCP - General Internal Medicine 06/13/21 10/20/21 Rasta Syed MD [address] [place] [address] PCP - General Internal Medicine 10/21/21 07/15/22 Michelle Calderón MD [address] [place] [address] PCP - General Internal Medicine 07/16/22 07/19/22 Rasta Syed MD [address] [place] [address] PCP - General Internal Medicine 07/20/22 08/01/23 Bernardo Dorantes MD [address] [place] [address] PCP - General Internal Medicine 08/02/23 Deidra Sneed DO Internal Medicine 12/19/15 07/19/22 Paulo Meraz MD [address] [place] [address] Parking Enforcement Manager Cardiovascular Disease 02/17/21 Jose Marcelo PA [address] [place] [address] Specialist Cardiology 09/08/22 Kelin Reeves NP [address] [place] [address] Cardiology 08/18/23 documented as of this encounter
--- OUTSIDE RECORDS SUMMARY | 2024-11-22 11:54 | XMS_ITS | Encounter Summary ---
Author Organization [facility] Address [address] [place] [address] Care Team Providers Care Transit Vehicle Inspector Name Role Phone [place] Colasacco, Deidra DO Primary Care Pro vider Unavailable [place] Colasacco, Deidra DO Primary Care Pro vider Unavailable [place] Colasacco, Deidra DO Unavailable Unavailable Hill Felton MD Primary Care Provider [phone] [place] Colasacco, Deidra DO Primary Care Pro vider Unavailable Paulo Meraz MD Unavailable Danish Gore DO Primary Care Provider Sherry vailable Vita Hale PA-C Primary Care Provider U Rasta Burciaga MD Primary Care Provider [phone] Michelle Calderón MD Primary Care Provider Unavailable Rasta Syed MD Primary Care Provider [phone] Jose Marcelo Unavailable Bernardo Dorantes MD Primary Care Provider Kelin Reeves NP Unavailable [phone] Encounter Details Date Type Department Care Team Description 07/17/2015 Hospital Medical Records [address] [place] [address] Social History Tobacco Use Types Packs/Day Years [...] on filedocumented in this encounter Care Teams Transit Vehicle Inspector Relationship Specialty Start Date End Date Deidra Sneed DO PCP - General Internal Medicine 06/07/15 12/18/15 Deidra Sneed DO PCP - General 12/19/15 02/02/21 Hill Felton MD [address] [place] [address] PCP - General Internal Medicine 02/03/21 02/04/21 Deidra Sneed DO PCP - General Internal Medicine 02/05/21 04/22/21 Danish Gore DO [address] [place] [address] PCP - General Internal Medicine 04/23/21 06/12/21 Vita Hale PA-C [address], [place] PCP - General Internal Medicine 06/13/21 10/20/21 Rasta Syed MD [address] [place] [address] PCP - General Internal Medicine 10/21/21 07/15/22 Michelle Calderón MD [address] [place] [address] PCP - General Internal Medicine 07/16/22 07/19/22 Rasta Syed MD [address] [place] [address] PCP - General Internal Medicine 07/20/22 08/01/23 Bernardo Dorantes MD [address] [place] [address] PCP - General Internal Medicine 08/02/23 Deidra Sneed, DO Internal Medicine 12/19/15 07/19/22 Paulo Meraz MD [address], [place] Wrapper Stripper Cardiovascular Disease 02/17/21 Jose Marcelo PA [address] [place] [address] Specialist Cardiology 09/08/22 Kelin Reeves NP [address] [place] [address] Cardiology 08/18/23 documented as of this encounter
--- OUTSIDE RECORDS SUMMARY | 2024-11-22 11:54 | XMS_ITS | Encounter Summary ---
Author Organization [facility] Address [address] [place] [address] Care Team Providers Care Business Employment Specialist Name Role Phone [place] Colasacco, Deidra DO Primary Care Pro vider Unavailable [place] Colasacco, Deidra DO Primary Care Pro vider Unavailable [place] Colasacco, Deidra DO Unavailable Unavailable Hill Felton MD Primary Care Provider [phone] [place] Colasacco, Deidra DO Primary Care Pro vider Unavailable Paulo Meraz MD Unavailable Danish Gore DO Primary Care Provider Sherry vailable Vita Hale PA-C Primary Care Provider U Rasta Burciaga MD Primary Care Provider [phone] Michelle Calderón MD Primary Care Provider Unavailable Rasta Syed MD Primary Care Provider [phone] Jose Marcelo Unavailable Bernardo Dorantes MD Primary Care Provider Kelin Reeves NP Unavailable [phone] Encounter Details Date Type Department Care Team Description 11/24/2015 Refrigeration Repair Supervisor Report Medical Records [address] [place] [address] Social History Tobacco Use Types Packs/Day Years [...] on filedocumented in this encounter Care Teams Business Employment Specialist Relationship Specialty Start Date End Date Deidra Sneed DO PCP - General Internal Medicine 06/07/15 12/18/15 Deidra Sneed DO PCP - General 12/19/15 02/02/21 Hill Felton MD [address] [place] [address] PCP - General Internal Medicine 02/03/21 02/04/21 Deidra Sneed DO PCP - General Internal Medicine 02/05/21 04/22/21 Danish Gore DO [address] [place] [address] PCP - General Internal Medicine 04/23/21 06/12/21 Vita Hale PA-C [address] [place], [place] PCP - General Internal Medicine 06/13/21 10/20/21 Rasta Syed MD [address] [place] [address] PCP - General Internal Medicine 10/21/21 07/15/22 Michelle Calderón MD [address] [place] [address] PCP - General Internal Medicine 07/16/22 07/19/22 Rasta Syed MD [address] [place] [address] PCP - General Internal Medicine 07/20/22 08/01/23 Bernardo Dorantes MD [address] [place] [address] PCP - General Internal Medicine 08/02/23 Deidra Sneed, DO Internal Medicine 12/19/15 07/19/22 Paulo Meraz MD [address] [place] [address] Hrbp Cardiovascular Disease 02/17/21 Jose Marcelo PA [address] [place] [address] Specialist Cardiology 09/08/22 Kelin Reeves NP [address] [place] [address] Cardiology 08/18/23 documented as of this encounter
--- OUTSIDE RECORDS SUMMARY | 2024-11-22 11:54 | XMS_ITS | Encounter Summary ---
Author Organization [facility] Address [address] [place] [address] Care Team Providers Care Research Program Manager Name Role Phone [place] Colasacco, Deidra DO Primary Care Pro vider Unavailable [place] Colasacco, Deidra DO Primary Care Pro vider Unavailable [place] Colasacco, Deidra DO Unavailable Unavailable Hill Felton MD Primary Care Provider [phone] [place] Colasacco, Deidra DO Primary Care Pro vider Unavailable Paulo Meraz MD Unavailable Danish Gore DO Primary Care Provider Sherry vailable Vita Hale PA-C Primary Care Provider U Rasta Burciaga MD Primary Care Provider [phone] Michelle Calderón MD Primary Care Provider Unavailable Rasta Syed MD Primary Care Provider [phone] Jose Marcelo Unavailable Bernardo Dorantes MD Primary Care Provider Kelin Reeves NP Unavailable [phone] Reason for Visit * Reason Onset Date Comments Medication 10/19/2015 Encounter Details Date Type Department Care Team Description 10/19/2015 Telephone Adult Urgent Care - [address] [address] Krakowiak Colasacco, Deidra, DO Medication Social History Tobacco Use Types Packs/Day Years [...] encounter Miscellaneous Notes * Telephone Encounter - Miguelina Albright MD - 10/19/2015 5:07 PM EST Unfortunately the pharmacist was not helpful, so I'll fax generic westcort cream instead of anusol that Екатерина Rx'd but it wasn't covered. * Telephone Encounter - Maty Anand M.A. - 10/19/2015 1:46 PM EST Spoke with the pt he states that the Rx that was given to him yesterday (Anusol HC) is not covered by his insurance. The pharmacist did not kinow what would be covered. Please review and advise. Thank you * Telephone Encounter - Kell Aldrich - 10/19/2015 1:39 PM EST What is the name of the medication patient is having a problem with?: Proctofoam. Needs something for today ( generic) What is the problem?: not covered by insurance Is the patient calling about the problem? NO If the patient is not the caller who is? friend Is this a NEW medication?: YES How long has the patient been taking this medication? none Who prescribed this medication for the patient? Dr. diallo Who is patients PCP?: dr. [place]man Payor: [employer] / Plan: [employer] $0 [id number] / Product Type: MEDICAID [id number] documented in this encounter Plan of Treatment Not on file documented as of this encounter Visit Diagnoses Not on filedocumented in this encounter Care Teams Research Program Manager Relationship Specialty Start Date End Date Deidra Sneed DO PCP - General Internal Medicine 06/07/15 12/18/15 Deidra Sneed DO PCP - General 12/19/15 02/02/21 Hill Felton MD [address] [place] [address] PCP - General Internal Medicine 02/03/21 02/04/21 Deidra Sneed, DO PCP - General Internal Medicine 02/05/21 04/22/21 Danish Groe DO [address] [place] [address] PCP - General Internal Medicine 04/23/21 06/12/21 Vita Hale PA-C [address] [place], [place] PCP - General Internal Medicine 06/13/21 10/20/21 Rasta Syed MD [address] [place] [address] PCP - General Internal Medicine 10/21/21 07/15/22 Michelle Calderón MD [address] [place] [address] PCP - General Internal Medicine 07/16/22 07/19/22 Rasta Syed MD [address] [place] [address] PCP - General Internal Medicine 07/20/22 08/01/23 Bernardo Dorantes MD [address] [place] [address] PCP - General Internal Medicine 08/02/23 Deidra Sneed, DO Internal Medicine 12/19/15 07/19/22 Paulo Meraz MD [address] [place] [address] Supervisor Lace Tearing Cardiovascular Disease 02/17/21 Jose Marcelo PA [address] [place] [address] Specialist Cardiology 09/08/22 Kelin Reeves NP [address] [place] [address] Cardiology 08/18/23 documented as of this encounter
--- OUTSIDE RECORDS SUMMARY | 2024-11-22 11:54 | XMS_ITS | Encounter Summary ---
Author Organization [facility] Address [address] [place] [address] Care Team Providers Care Variety Lathe Operator Name Role Phone Deidra Sneed DO Unavailable Unavailable Paulo Meraz MD Unavailable Vita HaleC Primary Care Provider U Rasta Burciaga MD Primary Care Provider [phone] Michelle Calderón MD Primary Care Provider Unavailable Rasta Syed MD Primary Care Provider [phone] Jose Marcelo Unavailable Bernardo Dorantes MD Primary Care Provider Kelin Reeves NP Unavailable [phone] Encounter Details Date Type Department Care Team Description 09/16/2021 SCAN Medical Records [address] [place] [address] Reyes Good MD Social History Tobacco Use [...] Date/Time Associated Diagnosis Comments OUTSIDE LAB Routine 09/16/2021 OUTSIDE LAB Routine 09/16/2021 documented in this encounter Results * OUTSIDE LAB (09/16/2021) Provider Abstract LAB * OUTSIDE LAB (09/16/2021) Provider Abstract LAB documented in this encounter Visit Diagnoses Not on filedocumented in this encounter Care Teams Variety Lathe Operator Relationship Specialty Start Date End Date Vita Hale PA-C PCP - General Internal Medicine 06/13/2110/20 Rasta Syed MD [address] [place] [address] PCP - General Internal Medicine 10/21/21 07/15/22 Michelle Calderón MD [address] [place] [address] PCP - General Internal Medicine 07/16/22 07/19/22 Rasta Syed MD [address] [place] [address] PCP - General Internal Medicine 07/20/22 08/01/23 Bernardo Dorantes MD [address] [place] [address] PCP - General Internal Medicine 08/02/23 Deidra Sneed, DO Internal Medicine 12/19/15 07/19/22 Paulo Meraz MD Straw Hat Plunger Operator Cardiovascular Disease 02/17/21 Jose Marcelo PA [address] [place] [address] Specialist Cardiology 09/08/22 Kelin Reeves NP [address] [place] [address] Cardiology 08/18/23 documented as of this encounter
--- OUTSIDE RECORDS SUMMARY | 2024-11-22 11:54 | XMS_ITS | Encounter Summary ---
Author Organization [facility] Address [address] [place] [address] Care Team Providers Care Skiver Uppers Or Linings Name Role Phone [place] Colasacco, Deidra DO Primary Care Pro vider Unavailable [place] Colasacco, Deidra DO Primary Care Pro vider Unavailable [place] Colasacco, Deidra DO Unavailable Unavailable Hill Felton MD Primary Care Provider [phone] [place] Colasacco, Deidra DO Primary Care Pro vider Unavailable Paulo Meraz MD Unavailable Danish Gore DO Primary Care Provider Sherry vailable Vita Hale PA-C Primary Care Provider U Rasta Burciaga MD Primary Care Provider [phone] Michelle Calderón MD Primary Care Provider Unavailable Rasta Syed MD Primary Care Provider [phone] Jose Marcelo Unavailable Bernardo Dorantes MD Primary Care Provider Kelin Reeves NP Unavailable [phone] Reason for Visit * Reason Onset Date Comments Provider Call Back 08/29/2015 Encounter Details Date Type Department Care Team Description 08/29/2015 Telephone Adult [address] [address] Deidra Sneed DO Provider Call Back Social History Tobacco Use Types Packs/Day Years [...] Telephone Encounter - Deidra Sims DO - 08/29/2015 5:07 PM EST Ordered ETT * Telephone Encounter - Alissa Frey M.A. - 08/29/2015 2:41 PM EST Please order ett, I can schedule pt to come back for EKG * Telephone Encounter - Karen Zapien - 08/29/2015 2:05 PM EST Caller requesting call back from provider: Is the caller the patient? NO If caller is not the patient, what is the callers name? Yaralis Callers relationship to patient? Sister If person calling is not the patient themselves, is there a verbal release in FYI or permanent comments for this person: YES Reason for call back: Patient is on list for kidney transplant. He will need an ekg and a stress test with imaging. Caller offered to speak with the nurse for assistance: YES Response: Patient offered to speak with nurse for assistance and patient agreed. Message forwarded to nurse. documented in this encounter Plan of Treatment Not on file documented as of this encounter Visit Diagnoses Not on filedocumented in this encounter Care Teams Skiver Uppers Or Linings Relationship Specialty Start Date End Date Deidra Sneed DO PCP - General Internal Medicine 06/07/15 12/18/15 Deidra Sneed DO PCP - General 12/19/15 02/02/21 Hill Felton MD [facility] [address] PCP - General Internal Medicine 02/03/21 02/04/21 Deidra Sneed DO PCP - General Internal Medicine 02/05/21 04/22/21 Danish Gore DO [address] [place] [address] PCP - General Internal Medicine 04/23/21 06/12/21 Vita Hale PA-C [address] [place] [address] PCP - General Internal Medicine 06/13/21 10/20/21 Rasta Syed MD [address] [place] [address] PCP - General Internal Medicine 10/21/21 07/15/22 Michelle Calderón MD [address] [place] [address] PCP - General Internal Medicine 07/16/22 07/19/22 Rasta Syed MD [address] [place] [address] PCP - General Internal Medicine 07/20/22 08/01/23 Bernardo Dorantes MD [address] [place] [address] PCP - General Internal Medicine 08/02/23 Deidra Sneed, DO Internal Medicine 12/19/15 07/19/22 Paulo Meraz MD [address] [place], [place] Title One Teacher Cardiovascular Disease 02/17/21 Jose Marcelo PA [address] [place] [address] Specialist Cardiology 09/08/22 Kelin Reeves NP [address] [place] [address] Cardiology 08/18/23 documented as of this encounter
--- OUTSIDE RECORDS SUMMARY | 2024-11-22 11:54 | XMS_ITS | Encounter Summary ---
Author Organization [facility] Address [address] [place] [address] Care Team Providers Care Drop Forger Name Role Phone Deidra Sneed DO Unavailable Unavailable Deidra Sneed DO Primary Care Pro vider Unavailable Paulo Meraz MD Unavailable Danish Gore DO Primary Care Provider Sherry vailable Vita HaleC Primary Care Provider U Rasta Burciaga MD Primary Care Provider [phone] Michelle Calderón MD Primary Care Provider Unavailable Rasta Syed MD Primary Care Provider [phone] Jose Marcelo Unavailable Bernardo Dorantes MD Primary Care Provider Kelin Reeves NP Unavailable [phone] Reason for Visit * Reason Onset Date Comments medication problems 04/02/2021 carvedilol ( COREG) 25 MG tablet/atorvastatin (LIPITOR) 20 MG tablet Encounter Details Date Type Department Care Team Description 04/02/2021 Telephone Adult Medicine - [address] [address] Deidra Sneed DO medication problems (carvedilol (COREG) 25 MG tablet/atorvastatin (LIPITOR) 20 MG tablet) Social History Tobacco Use Types Packs/Day Years [...] have Coronavirus / COVID-19? No / Unsure 03/11/2021 12:57 PM EDT documented as of this encounter Miscellaneous Notes * Telephone Encounter - Yolande Juan M.A. - 04/02/2021 3:41 PM EDT OSWALDO 01/17/2021 pe F/U appt 04/09/2021 Pt is out of medication and requesting a 10 day supply until his appt Lab Results Component Value Date CHOL 133 01/17/2021 LDL 57 01/17/2021 HDL 27 01/17/2021 TRIG 245 01/17/2021 SGOT 8 03/31/2019 SGPT 17 03/31/2019 * Telephone Encounter - Екатерина Wilburn - 04/02/2021 10:51 AM EDT Who is calling? The patient Name of the medication atorvastatin (LIPITOR) 20 MG tablet/carvedilol (COREG) 25 MG tablet What is the specific problem or interaction? States we refused the medications for refilling to soon, patient states he is out of the medication. Please send new scripts If the patient is having a problem with taking the med - how long has the problem been going on? N/A documented in this encounter Plan of Treatment Not on file documented as of this encounter Visit Diagnoses Not on filedocumented in this encounter Care Teams Drop Forger Relationship Specialty Start Date End Date Deidra Sneed DO PCP - General Internal Medicine 02/05/21 04/22/21 Danish Gore DO PCP - General Internal Medicine 04/23/21 1 Vita Hale PA-C PCP - General Internal Medicine 06/13/2110/20 Rasta Syed MD [address] [place] [address] PCP - General Internal Medicine 10/21/21 07/15/22 Michelle Calderón MD [address] [place] [address] PCP - General Internal Medicine 07/16/22 07/19/22 Rasta Syed MD [address] [place] [address] PCP - General Internal Medicine 07/20/22 08/01/23 Bernardo Dorantes MD [address] [place] [address] [id number] PCP - General Internal Medicine 08/02/23 Deidra Sneed, DO Internal Medicine 12/19/15 07/19/22 Paulo Meraz MD Traffic Analyst Cardiovascular Disease 02/17/21 Jose Marcelo PA [address] [place], [place] [id number] Specialist Cardiology 09/08/22 Kelin Reeves NP [address] [place] [id number] Cardiology 08/18/23 documented as of this encounter
== END 2024-11-22 10:22 | disposition home or self-care (01) ==
PROVIDERS: PCP Internal Medicine; Visit Provider Psychiatry & Neurology Neurology
DX: G56.02 Carpal tunnel syndrome, left upper limb (principal); M79.604 Pain in right leg; M79.605 Pain in left leg
CPT/HCPCS: 99214

== ENCOUNTER → 2024-11-22 09:57 | Outpatient (BNVA) | payer OTHER, SELFPAY | PROVIDERS: PCP Internal Medicine; Visit Provider Psychiatry & Neurology Neurology | DX: G56.02 Carpal tunnel syndrome, left upper limb (principal); M79.604 Pain in right leg; M79.605 Pain in left leg | CPT/HCPCS: 99212 ==